=== PATIENT | male | born 1950 | race Caucasian/White ===

== ENCOUNTER 2016-12-12 17:53 | Inpatient (IN) ==
[2016-12-12] MEDS ORDERED: Vancomycin 1,000 MG in D5% in Water 250 ML IVPB ONE ×2 (18:17→23:00)
--- NOTE | 2016-12-12 18:37 | Emergency Department Note ---
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: unspecified long-term insulin use status Qualified Code(s): E11.65 - Type 2 diabetes mellitus with hyperglycemia 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 underlying condition Qualifiers: Laterality: right Non-pressure ulcer stage: limited to breakdown of skin Qualified Code(s): E08.621 - Diabetes mellitus due to underlying condition with foot ulcer Disposition: Still a Patient Referrals: Zainab Rodney MD [Primary Care Provider] - Forms: ED Satisfaction Letter Extremity Problem HPI - General Chief complaint: ED Extremity Problem,Nontraumatic Stated complaint: BLE edema and weeping Time Seen by Provider: 12/12/16 18:00 Source: patient, EMS Limitations: no limitations Nursing Notes Reviewed: Yes Vital Signs Reviewed: Yes - History of Present Illness HPI Narrative: The patient a 66-year-old male who is a non-compliant diabetic with a past medical history of A-Fib and hypertension who came via EMS and presents complaining of drainage and seepage from the wounds on his bilateral lower extremities. The patient states that his wounds and lesions have been present for approximately 2 weeks, but he noticed a lot of drainage and leakage today that caused him to almost slip on the floor as he was walking. He admits that the wound on his left wills is "sore". He denies any fever, nausea, and vomiting. He admits difficulty urinating, increased in urinary urgency, and increase in urinary frequency and has had multiple "accidents" on himself because he cannot make it to the restroom on time. He denies any hematuria. He admits that he is not compliant with his insulin. Per EMS, his glucose was 400 prior to arrival. Repeat glucose check here was 440. He admits a recent fall one week ago due to tripping on something but denies any head trauma or loss of consciousness. The patient denies any headache, vision loss, chest pain, palpitations, shortness of breath, difficulty breathing, abdominal pain, blood in his stool, blood in his urine, numbness and tingling, weaknesses, or any focal neurological deficits. Pain Scale: 5 - Related Data Home Medications Medication Instructions Recorded Confirmed Atorvastatin [Lipitor] 40 mg PO DAILY 03/20/15 03/20/15 Bupropion HCl [Wellbutrin Xl] 300 mg PO DAILY 03/20/15 03/20/15 Enalapril Maleate [Vasotec] 20 mg PO BID 03/20/15 03/20/15 Insulin Glargine,Hum.rec.anlog 50 unit SQ HS 03/20/15 03/20/15 [Lantus Solostar] Insulin LISPRO [HumaLOG] 15 unit SQ TIDWM 03/20/15 03/20/15 Metformin HCl [Fortamet] 2,000 mg PO QPM 03/20/15 03/20/15 Metoprolol XL (24 HR) Succ [Toprol 150 mg PO DAILY 03/20/15 03/20/15 Xl] Oxybutynin Chloride [Ditropan Xl] 10 mg PO DAILY 03/20/15 03/20/15 Rivaroxaban [Xarelto] 20 mg PO DAILY 03/20/15 03/20/15 Tamsulosin [Flomax] 0.4 mg PO DAILY 03/20/15 03/20/15 Allergies Allergy/AdvReac Type Severity Reaction Status Date / Time No Known Allergies Allergy Verified 12/12/16 17:56 Review of Systems: Constitutional: No fever Vision: No blurred vision ENT: No rhinorrhea Respiratory: No cough Allergic: No allergies : Admits increase in urinary urgency and frequency. Admits difficulty urinating. Denies any No blood in urine, dysuria, discharge. GI: No blood in stool. Denies abdominal pain Hematologic: No bruising Dermatologic: Admits vesicular lesions and blisters on left wills, erythema on bilateral feet, and ulcer under the right heel. Musculoskeletal: Admits bilateral leg swelling. Admits soreness in the left wills. Denies pain in bilateral feet. Neuro:Denies any numbness of the extremities. All systems ED: reviewed and negative except as stated. Review of Systems: As Per HPI Past Medical History - Past Medical History Medical history: Reports: atrial fibrillation, diabetes, hyperlipidemia, hypertension Surgical history: Reports: appendectomy Psychiatric history: Reports: no psych history - Social History Smoking Status: Never smoker Smokeless Tobacco Status: No Alcohol use: Reports: none Drug use: Reports: none Physical Exam CONSTITUTIONAL: Alert and oriented X3, well-nourished, morbidly obese, in no apparent distress HEAD: Normocephalic; atraumatic. EYES: PERRL, no scleral icterus. NOSE: The nose is normal in appearance without rhinorrhea ORAL: Tongue appears dry. Poor dentition. Posterior pharynx is pink without exudates, erythema, or any oral lesions RESP: Breath sounds are decreased bilaterally; Inspiratory and expiratory wheezes bilaterally in the upper and lower lobes. CARD: Regular rhythm, without murmurs, rub or gallop ABD: Non-distended; non-tender, soft,without rigidity, rebound or guarding SKIN: Vesicular lesions are present on the left wills. Broken lesions are also present on left wills and bilateral dorsal aspect of the feet. Right heel ulcer is present and opened but without drainage. Toenails are yellow and poor in appearance. Normal for age and race. NEUROLOGICAL: Patient is alert and oriented times three. Cranial nerves III- XII are intact. Sensory and motor functions are intact. Strength is 3/5 for flexion and extension in all 4 extremities. EXTREMITIES: Pulses are 1 plus and equal times 2 in lower extremities. peripheral edema present in bilateral lower extremities with +2 pitting edema. No calf muscle pain. - General Limitations: no limitations General appearance: alert Course Vital Signs Temperature 97.5 F L 12/12/16 17:56 Pulse Rate 114 12/12/16 17:56 Respiratory Rate 20 12/12/16 17:56 Blood Pressure 121/97 12/12/16 17:56 O2 Sat by Pulse Oximetry 93 12/12/16 17:56 Temperature 97.5 F L 12/12/16 17:56 Pulse Rate 114 12/12/16 17:56 Respiratory Rate 20 12/12/16 17:56 Blood Pressure 121/97 12/12/16 17:56 O2 Sat by Pulse Oximetry 93 12/12/16 17:56 Oxygen Delivery Oxygen Delivery Room Air Extremity Problem, Nontraumati - MDM Narrative Medical decision making narrative: Vitals are reviewed and patient is tachycardic. Glucose check was 440 at bedside. Cellulitis is apparent on lower extremities. Labs and imaging are pending to further evaluate patient. Plan is to admit patient for non compliant diabetes, bilateral lower extremities edema, diabetic ulcers, and developing cellulitis. Began patient on Vancomycin. - Lab Data Result diagrams: 12/12/16 18:30 Lab Results 12/12/16 12/12/16 12/12/16 Range/Units 17:57 17:59 18:30 WBC 7.6 (4.3-11.1) K/mcL RBC 3.90 L (4.19-5.50) M/mcL Hgb 10.0 L (12.9-16.9) g/dL Hct 33.3 L (37.5-50.1) % MCV 85.4 (83.0-100.0) fL MCH 25.6 L (28.0-33.3) pg MCHC 30.0 L (31.6-35.5) g/dL RDW 16.5 H (11.5-14.5) % Plt Count 284 (140-400) K/mcL MPV 10.2 (9.4-12.4) fL Immature Gran % 0.3 (0-4) % Seg Neutrophils % 79.4 % Lymphocytes % 9.6 % Monocytes % 8.1 % Eosinophils % 2.1 % Basophils % 0.5 % Neutrophils # 6.0 (1.6-8.9) K/mcL Lymphocytes # 0.7 (0.6-4.6) K/mcL Monocytes # 0.6 (0.0-1.3) K/mcL Eosinophils # 0.2 (0.0-0.6) K/mcL Basophils # 0.0 (0.0-0.2) K/mcL POC Glucose 440 H* 417 H* (58-89) Beta-Hydroxybutyric Acd (0.02-0.27) mmol/L 12/12/16 Range/Units 18:30 WBC (4.3-11.1) K/mcL RBC (4.19-5.50) M/mcL Hgb (12.9-16.9) g/dL Hct (37.5-50.1) % MCV (83.0-100.0) fL MCH (28.0-33.3) pg MCHC (31.6-35.5) g/dL RDW (11.5-14.5) % Plt Count (140-400) K/mcL MPV (9.4-12.4) fL Immature Gran % (0-4) % Seg Neutrophils % % Lymphocytes % % Monocytes % % Eosinophils % % Basophils % % Neutrophils # (1.6-8.9) K/mcL Lymphocytes # (0.6-4.6) K/mcL Monocytes # (0.0-1.3) K/mcL Eosinophils # (0.0-0.6) K/mcL Basophils # (0.0-0.2) K/mcL POC Glucose (58-89) Beta-Hydroxybutyric Acd 0.30 H (0.02-0.27) mmol/L - EKG Data EKG attestation: Yes I reviewed and interpreted this EKG. EKG results narrative: EKG shows atrial fibrillation with a rate of 76, URS variation of 99, QT at 389 , QTC at 420.No acute ischemic changes noted on the EKG today. No significant changes on EKG compared to the old EKG dated on 03/20/15. Attestation Statement - Attestation Attestation: Patient was seen with resident physician. I reviewed the history, physical, assessment and plan, and agree with the findings. I also personally evaluated this patient and had [id number] time with this patient. This 58-year-old male presents emergency Department with a variety of complaints. Chief among series is oozing from his leg wounds and ulcers. Also with increased swelling. Patient is apparently a diabetic and does not take any of his medications. Comes in today with his leg wrapped because he is having increased bruising and swelling and drainage from lesions on his legs. On examination vital signs are stable. Patient is morbidly obese. ENT is unremarkable. Heart regular rhythm and rate. Lungs diffuse crackling throughout. Abdomen is soft and nontender. Extremities he has 2+ edema in the lower externus bilaterally he has bilateral bruising lesions anteriorly on the legs they are red but not particularly warm. Also he has a nonhealing ulcer on the right heel posteriorly. Neurologically patient is intact. ED course fold diabetic CHF and wound workup was started. The workup was pending at the time of shift change. Patient will be started on IV antibiotics and will likely require admission for a variety of medical conditions. Patient was signed out to Dr. Orellana and Dr. Carnes will complete the disposition and workup. Patient was still a patient at the time of shift change.
[2016-12-12 18:42] LABS: Basophils % 0.5 %; Eosinophils # 0.2 K/mcL (0.0-0.6); Eosinophils % 2.1 %; Hematocrit 33.3 % (37.5-50.1); Immature Granulocytes % 0.3 % (0-4); Lymphocytes # 0.7 K/mcL (0.6-4.6); Lymphocytes % 9.6 %; Mean Corpuscular Hemoglobin 25.6 pg (28.0-33.3); Mean Corpuscular Volume 85.4 fL (83.0-100.0); Mean Platelet Volume 10.2 fL (9.4-12.4); Monocytes # 0.6 K/mcL (0.0-1.3); Monocytes % 8.1 %; Platelet Count 284 K/mcL (140-400); Red Cell Distribution Width 16.5 % (11.5-14.5); Segmented Neutrophils % 79.4 %
[2016-12-12 18:53] LABS: Beta-Hydroxybutyric Acid 0.3 mmol/L (0.02-0.27)
[2016-12-12 18:54] LABS: VBG HCO3 26 mEq/L (21-27); VBG PCO2 50 mmHg (41-51); VBG PH 7.32 pH Units (7.32-7.42); VBG PO2 56 mmHg (25-50)
[2016-12-12 18:59] LABS: Albumin 2.7 g/dL (3.5-5.0); Albumin/Globulin Ratio 0.7 (1.1-2.2); Bilirubin,Total 0.5 mg/dL (0.2-1.2); Calcium 8.3 mg/dL (8.6-10.8); Potassium 4.3 mEq/L (3.5-4.5); Total Protein 6.7 g/dL (6.0-8.3)
--- NOTE | 2016-12-12 19:07 | Emergency Department Note ---
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 Qualified Code(s): E11.65 - Type 2 diabetes mellitus with hyperglycemia 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 underlying condition Qualifiers: Laterality: right Non-pressure ulcer stage: limited to breakdown of skin Qualified Code(s): E08.621 - Diabetes mellitus due to underlying condition with foot ulcer Disposition: Still a Patient Condition: Fair Referrals: Zainab Rodney MD [Partnered Physician] - Forms: ED Satisfaction Letter Time of Disposition: 20:46 General Adult HPI - General Chief complaint: ED Extremity Problem,Nontraumatic Stated complaint: BLE edema and weeping Time Seen by Provider: 12/12/16 18:00 Source: patient, EMS Mode of arrival: ambulatory Limitations: no limitations Nursing Notes Reviewed: Yes Vital Signs Reviewed: Yes - History of Present Illness Pain Scale: 5 - Related Data Home Medications Medication Instructions Recorded Confirmed Atorvastatin [Lipitor] 40 mg PO DAILY 03/20/15 03/20/15 Bupropion HCl [Wellbutrin Xl] 300 mg PO DAILY 03/20/15 03/20/15 Enalapril Maleate [Vasotec] 20 mg PO BID 03/20/15 03/20/15 Insulin Glargine,Hum.rec.anlog 50 unit SQ HS 03/20/15 03/20/15 [Lantus Solostar] Insulin LISPRO [HumaLOG] 15 unit SQ TIDWM 03/20/15 03/20/15 Metformin HCl [Fortamet] 2,000 mg PO QPM 03/20/15 03/20/15 Metoprolol XL (24 HR) Succ [Toprol 150 mg PO DAILY 03/20/15 03/20/15 Xl] Oxybutynin Chloride [Ditropan Xl] 10 mg PO DAILY 03/20/15 03/20/15 Rivaroxaban [Xarelto] 20 mg PO DAILY 03/20/15 03/20/15 Tamsulosin [Flomax] 0.4 mg PO DAILY 03/20/15 03/20/15 Allergies Allergy/AdvReac Type Severity Reaction Status Date / Time No Known Allergies Allergy Verified 12/12/16 17:56 Past Medical History - Past Medical History Medical history: Reports: atrial fibrillation, diabetes, hyperlipidemia, hypertension Surgical history: Reports: appendectomy Psychiatric history: Reports: no psych history - Social History Smoking Status: Never smoker Smokeless Tobacco Status: No Alcohol use: Reports: none Drug use: Reports: none Physical Exam - General Limitations: no limitations General appearance: alert - Head Head exam: atraumatic, normocephalic, normal inspection - Eye Eye exam: Present: normal appearance, PERRL, EOMI - ENT ENT exam: normal exam, normal oropharynx, mucous membranes moist - Neck Neck exam: Present: normal inspection, full ROM, trachea midline - Chest Chest inspection: Present: normal inspection, symmetric chest wall rise - Respiratory Respiratory exam: Present: wheezes (mild wheeze and decreased aeration bilateral LL) - Cardiovascular Cardiovascular exam: Present: normal rhythm, tachycardia, normal heart sounds - Abdominal Exam Abdominal exam: Present: soft, other (anasarca present). Absent: tenderness, distention, guarding, rebound - Extremities Exam Extremities exam: Present: full ROM, pedal edema, other (Also the right heel with active pus drainage, cellulitis surrounding; chronic deep venous stasis dermatitis of bilateral lower extremity). Absent: tenderness - Neurological Exam Neurological exam: Present: alert, oriented X3. Absent: motor sensory deficit - Psychiatric Psychiatric exam: Present: normal affect, normal mood - Skin Skin exam: Present: warm, dry, other (see above extremity section) Course Course Narrative: This patient was a sign out from the previous team, Dr. Galicia, Dr. Ribeiro. Please see their notes for any additional details. In summary, patient is an obese male, poorly compliant with medications, has diabetes, CHF, chronic lower extremity edema, nonhealing ulcer of the right foot. He had a fairly extensive workup done by previous team. They have started vancomycin for right lower extremity ulcer. He also has evidence of a K I, hyperglycemia. He does not have a gap. We will give the patient 10 units of IV insulin for hyperglycemia in the 400s. We will hold off on fluids for now due to CHF exacerbation, shortness of breath, pedal edema. Trop negative. EKG shows A fib with no acute ST changes, occasional PVCS. patient has been accepted by Dr. Hicks for admission Vital Signs Temperature 97.5 F L 12/12/16 17:56 Pulse Rate 114 12/12/16 17:56 Respiratory Rate 20 12/12/16 17:56 Blood Pressure 121/97 12/12/16 17:56 O2 Sat by Pulse Oximetry 93 12/12/16 17:56 Temperature 97.5 F L 12/12/16 17:56 Pulse Rate 75 12/12/16 19:53 Respiratory Rate 20 12/12/16 19:53 Blood Pressure 146/80 12/12/16 19:53 O2 Sat by Pulse Oximetry 94 12/12/16 19:53 Oxygen Delivery Oxygen Delivery Room Air Medical Decision Making - MDM Narrative Medical decision making narrative: This patient was a sign out from the previous team, Dr. Galicia, Dr. Ribeiro. Please see their notes for any additional details. In summary, patient is an obese male, poorly compliant with medications, has diabetes, CHF, chronic lower extremity edema, nonhealing ulcer of the right foot. He had a fairly extensive workup done by previous team. They have started vancomycin for right lower extremity ulcer. He also has evidence of a K I, hyperglycemia. He does not have a gap. We will give the patient 10 units of IV insulin for hyperglycemia in the 400s. We will hold off on fluids for now due to CHF exacerbation, shortness of breath, pedal edema. Trop negative. EKG shows A fib with no acute ST changes, occasional PVCS. patient has been accepted by Dr. Hicks for admission - Medical Records Medical records reviewed: Yes I reviewed the patient's medical records. - Lab Data Lab results reviewed: Yes I reviewed the patient's lab results. Result diagrams: 12/12/16 18:30 12/12/16 18:30 Lab Results 12/12/16 12/12/16 12/12/16 Range/Units 17:57 17:59 18:30 WBC 7.6 (4.3-11.1) K/mcL RBC 3.90 L (4.19-5.50) M/mcL Hgb 10.0 L (12.9-16.9) g/dL Hct 33.3 L (37.5-50.1) % MCV 85.4 (83.0-100.0) fL MCH 25.6 L (28.0-33.3) pg MCHC 30.0 L (31.6-35.5) g/dL RDW 16.5 H (11.5-14.5) % Plt Count 284 (140-400) K/mcL MPV 10.2 (9.4-12.4) fL Immature Gran % 0.3 (0-4) % Seg Neutrophils % 79.4 % Lymphocytes % 9.6 % Monocytes % 8.1 % Eosinophils % 2.1 % Basophils % 0.5 % Neutrophils # 6.0 (1.6-8.9) K/mcL Lymphocytes # 0.7 (0.6-4.6) K/mcL Monocytes # 0.6 (0.0-1.3) K/mcL Eosinophils # 0.2 (0.0-0.6) K/mcL Basophils # 0.0 (0.0-0.2) K/mcL VBG pH (7.32-7.42) pH Units VBG pCO2 (41-51) mmHg VBG pO2 (25-50) mmHg VBG HCO3 (21-27) mEq/L Sodium (136-145) mEq/L Potassium (3.5-4.5) mEq/L Chloride (98-109) mEq/L Carbon Dioxide (19-29) mEq/L BUN (8-26) mg/dL Creatinine (0.72-1.25) mg/dL Est GFR ( Amer) (> 60) Est GFR (Non-Af Amer) (> 60) BUN/Creatinine Ratio (6-26) Glucose (70-99) mg/dL POC Glucose 440 H* 417 H* (58-89) Calculated Osmolality (280-300) Lactic Acid (0.5-2.2) mmol/L Calcium (8.6-10.8) mg/dL Total Bilirubin (0.2-1.2) mg/dL AST (5-34) Units/L ALT (0-55) Units/L Alkaline Phosphatase (38-126) Units/L Troponin I (0-0.03) ng/mL B-Natriuretic Peptide (0-100) pg/mL Serum Total Protein (6.0-8.3) g/dL Albumin (3.5-5.0) g/dL Globulin (2.4-3.5) g/dL Albumin/Globulin Ratio (1.1-2.2) Beta-Hydroxybutyric Acd (0.02-0.27) mmol/L Urine Color (Yellow) Urine Clarity (Clear) Urine pH (5.0-8.0) pH Units Ur Specific Otis (1.010-1.025) Urine Protein (Neg-Trace) mg/dL Urine Glucose (UA) (Normal) mg/dL Urine Ketones (Negative) mg/dL Urine Blood (Negative) Urine Nitrite (Negative) Urine Bilirubin (Negative) Urine Urobilinogen (Normal) mg/dL Ur Leukocyte Esterase (Negative) Urine Microscopic RBC (0-3) per hpf Urine Microscopic WBC (0-3) per hpf Ur Squamous Epith Cells (None-Few) per lpf Urine Bacteria (None-Few) per hpf Hyaline Casts (None-Few) per lpf Ur Culture Indicated? (NO) 12/12/16 12/12/16 12/12/16 Range/Units 18:30 18:30 18:30 WBC (4.3-11.1) K/mcL RBC (4.19-5.50) M/mcL Hgb (12.9-16.9) g/dL Hct (37.5-50.1) % MCV (83.0-100.0) fL MCH (28.0-33.3) pg MCHC (31.6-35.5) g/dL RDW (11.5-14.5) % Plt Count (140-400) K/mcL MPV (9.4-12.4) fL Immature Gran % (0-4) % Seg Neutrophils % % Lymphocytes % % Monocytes % % Eosinophils % % Basophils % % Neutrophils # (1.6-8.9) K/mcL Lymphocytes # (0.6-4.6) K/mcL Monocytes # (0.0-1.3) K/mcL Eosinophils # (0.0-0.6) K/mcL Basophils # (0.0-0.2) K/mcL VBG pH (7.32-7.42) pH Units VBG pCO2 (41-51) mmHg VBG pO2 (25-50) mmHg VBG HCO3 (21-27) mEq/L Sodium 140 (136-145) mEq/L Potassium 4.3 (3.5-4.5) mEq/L Chloride 106 (98-109) mEq/L Carbon Dioxide 24 (19-29) mEq/L BUN 30 H (8-26) mg/dL Creatinine 1.85 H (0.72-1.25) mg/dL Est GFR ( Amer) 44 L (> 60) Est GFR (Non-Af Amer) 37 L (> 60) BUN/Creatinine Ratio 16 (6-26) Glucose 419 H (70-99) mg/dL POC Glucose (58-89) Calculated Osmolality 314 H (280-300) Lactic Acid 2.3 H (0.5-2.2) mmol/L Calcium 8.3 L (8.6-10.8) mg/dL Total Bilirubin 0.5 (0.2-1.2) mg/dL AST 9 (5-34) Units/L ALT 9 (0-55) Units/L Alkaline Phosphatase 114 (38-126) Units/L Troponin I 0.00 (0-0.03) ng/mL B-Natriuretic Peptide (0-100) pg/mL Serum Total Protein 6.7 (6.0-8.3) g/dL Albumin 2.7 L (3.5-5.0) g/dL Globulin 4.0 H (2.4-3.5) g/dL Albumin/Globulin Ratio 0.7 L (1.1-2.2) Beta-Hydroxybutyric Acd 0.30 H (0.02-0.27) mmol/L Urine Color (Yellow) Urine Clarity (Clear) Urine pH (5.0-8.0) pH Units Ur Specific Otis (1.010-1.025) Urine Protein (Neg-Trace) mg/dL Urine Glucose (UA) (Normal) mg/dL Urine Ketones (Negative) mg/dL Urine Blood (Negative) Urine Nitrite (Negative) Urine Bilirubin (Negative) Urine Urobilinogen (Normal) mg/dL Ur Leukocyte Esterase (Negative) Urine Microscopic RBC (0-3) per hpf Urine Microscopic WBC (0-3) per hpf Ur Squamous Epith Cells (None-Few) per lpf Urine Bacteria (None-Few) per hpf Hyaline Casts (None-Few) per lpf Ur Culture Indicated? (NO) 12/12/16 12/12/16 12/12/16 Range/Units 18:30 18:49 19:50 WBC (4.3-11.1) K/mcL RBC (4.19-5.50) M/mcL Hgb (12.9-16.9) g/dL Hct (37.5-50.1) % MCV (83.0-100.0) fL MCH (28.0-33.3) pg MCHC (31.6-35.5) g/dL RDW (11.5-14.5) % Plt Count (140-400) K/mcL MPV (9.4-12.4) fL Immature Gran % (0-4) % Seg Neutrophils % % Lymphocytes % % Monocytes % % Eosinophils % % Basophils % % Neutrophils # (1.6-8.9) K/mcL Lymphocytes # (0.6-4.6) K/mcL Monocytes # (0.0-1.3) K/mcL Eosinophils # (0.0-0.6) K/mcL Basophils # (0.0-0.2) K/mcL VBG pH 7.32 (7.32-7.42) pH Units VBG pCO2 50 (41-51) mmHg VBG pO2 56 H (25-50) mmHg VBG HCO3 26 (21-27) mEq/L Sodium (136-145) mEq/L Potassium (3.5-4.5) mEq/L Chloride (98-109) mEq/L Carbon Dioxide (19-29) mEq/L BUN (8-26) mg/dL Creatinine (0.72-1.25) mg/dL Est GFR ( Amer) (> 60) Est GFR (Non-Af Amer) (> 60) BUN/Creatinine Ratio (6-26) Glucose (70-99) mg/dL POC Glucose (58-89) Calculated Osmolality (280-300) Lactic Acid (0.5-2.2) mmol/L Calcium (8.6-10.8) mg/dL Total Bilirubin (0.2-1.2) mg/dL AST (5-34) Units/L ALT (0-55) Units/L Alkaline Phosphatase (38-126) Units/L Troponin I (0-0.03) ng/mL B-Natriuretic Peptide 404 H (0-100) pg/mL Serum Total Protein (6.0-8.3) g/dL Albumin (3.5-5.0) g/dL Globulin (2.4-3.5) g/dL Albumin/Globulin Ratio (1.1-2.2) Beta-Hydroxybutyric Acd (0.02-0.27) mmol/L Urine Color Yellow (Yellow) Urine Clarity Clear (Clear) Urine pH 5.0 (5.0-8.0) pH Units Ur Specific Otis 1.029 H (1.010-1.025) Urine Protein 100 H (Neg-Trace) mg/dL Urine Glucose (UA) >=1000 H (Normal) mg/dL Urine Ketones Negative (Negative) mg/dL Urine Blood Trace H (Negative) Urine Nitrite Negative (Negative) Urine Bilirubin Negative (Negative) Urine Urobilinogen Normal (Normal) mg/dL Ur Leukocyte Esterase Negative (Negative) Urine Microscopic RBC 3-5 H (0-3) per hpf Urine Microscopic WBC 5-15 H (0-3) per hpf Ur Squamous Epith Cells Many H (None-Few) per lpf Urine Bacteria None Seen (None-Few) per hpf Hyaline Casts Few (None-Few) per lpf Ur Culture Indicated? NO (NO) - Radiology Data Radiology results reviewed: Yes I reviewed the patient's radiology results. Chest X-Ray 12/12/16 18:06 IMPRESSION: Slightly low lung volumes without acute abnormality. D/ / Eloy Che MD / Eloy Che MD Interpreting Provider: Eloy Che MD - EKG Data EKG #1 EKG attestation: Yes I reviewed and interpreted this EKG. EKG results narrative: 12/12/2016 18:22. A. fib with occasional PVC. Rate 76. QRS 99. QTc 420. Normal axis. S.B.A.R. - S.B.A.R. Situation: Demographics, MOA Background: Presenting Complaint, Relevant PMH, Meds, & Allergies Assessment: Vital Signs, Course and respsone to treatment, Exam Concerns, Patient/Family Expectation, Pertinant Lab Results Recommendation: Barrier(s) to disposition, Recommendation based on pending studies, treatments, or consults S.B.A.RGlenn Report Given to: Dr. Kurt Crawford Repor Time: 20:49
[2016-12-12 20:01] LABS: Bilirubin,Urine Negative (Negative); Blood,Urine Trace (Negative); Clarity,Urine Clear (Clear); Color,Urine Yellow (Yellow); Glucose,Urine (UA) >=1000 mg/dL (Normal); Ketones,Urine Negative (Negative); Leukocyte Esterase,Urine Negative (Negative); Nitrite,Urine Negative (Negative); Protein,Urine 100 mg/dL (Neg-Trace); Specific Gravity,Urine 1.029 (1.010-1.025); Urobilinogen,Urine Normal (Normal)
[2016-12-12 20:04] LABS: Bacteria,Urine None Seen per hpf (None-Few); Hyaline Casts,Urine Few per lpf (None-Few); Squamous Epithelial Cell,Urine Many per lpf (None-Few)
--- NOTE | 2016-12-12 20:06 | Emergency Department Note ---
START Narrative - START START: I examined this patient and my medical decision-making was reviewed with the emergency medicine resident. I agree with the documented findings, disposition and treatment plan as described except to the extent set forth below. Patient seen with emergency medicine resident Dr. Bereket CHONG, Please see a copy of his note for details of the H&P, ED evaluation, management and disposition. I have independently evaluated the patient and confirmed appropriate portions of the history and physical exam. Briefly: Chronically noncompliant 58-year-old insulin-dependent diabetic presents with several days of bilateral family swelling erythema and a developing ulcer on his right heel. He has been dropped from 2 different primary care providers due to noncompliance. Patient is agreeable to admission. Labs are essentially within normal limits aside from a glucose of 400 and positive beta hydroxybutyrate. Patient got IV vancomycin for developing cellulitis. Admission anticipated disposition pending
[2016-12-12] MEDS ORDERED: Furosemide 40 MG/4 ML VIAL IVP ONE (20:40)
--- NOTE | 2016-12-12 21:53 | Internal Med History&Physical ---
Date of Encounter: 12/13/16 Time of Encounter: 21:53 Assessment and Plan (1) Sepsis Current visit: Yes Status: Acute 2 SIRS criteria with tachycardia HR 114 and tachypnea RR 23, source likely cellulitis vs UTI Lactic acid 2.3 --> 1.3 Blood, urine, and wound cultures pending Continue Vanc and Zosyn De-escalate antibiotics once cultures resulted We will hold off on fluids for now due to CHF exacerbation, shortness of breath , pedal edema. Qualifiers: Sepsis type: sepsis due to unspecified organism Qualified Code(s): A41.9 - Sepsis, unspecified organism (2) Cellulitis of both feet Current visit: Yes Status: Acute Moist weeping bilateral 4+ pedal edema, chronic deep venous stasis dermatitis of bilateral lower extremities Wound cultures pending Continue Vanc and Zosyn Wound care consulted (3) Fungal infection of the groin Current visit: Yes Status: Acute Lower pannus/ groin Continue Diflucan, Nystatin (4) UTI (urinary tract infection) Current visit: Yes Status: Acute Urine culture pending Brennan in place Continue Vanc and Zosyn Qualifiers: Urinary tract infection type: acute cystitis Hematuria presence: with hematuria Qualified Code(s): N30.01 - Acute cystitis with hematuria (5) 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 underlying condition Current visit: Yes Status: Acute Right heel ulcer with purulent drainage Wound care consulted Qualifiers: Laterality: right Non-pressure ulcer stage: limited to breakdown of skin Qualified Code(s): E08.621 - Diabetes mellitus due to underlying condition with foot ulcer; L97.411 - Non-pressure chronic ulcer of right heel and midfoot limited to breakdown of skin; L97.411 - Non-pressure chronic ulcer of right heel and midfoot limited to breakdown of skin; L97.411 - Non-pressure chronic ulcer of right heel and midfoot limited to breakdown of skin; L97.411 - Non- pressure chronic ulcer of right heel and midfoot limited to breakdown of skin (6) Hyperglycemia due to type 2 diabetes mellitus Current visit: Yes Status: Acute HGB a1c 11.2 Continue insulin and SSI Qualifiers: Diabetes mellitus termite exterminator insulin use: without termite exterminator use Qualified Code(s): E11.65 - Type 2 diabetes mellitus with hyperglycemia (7) CHF (congestive heart failure) Current visit: Yes Status: Acute Acute CHF CXR revelas slightly low lung volumes without acute abnormality Echo pending Continue home Metoprolol and Lisinopril Start low dose Spironolactone Fluid restriction Qualifiers: Congestive heart failure type: unspecified congestive heart failure type Congestive heart failure chronicity: acute Qualified Code(s): I50.9 - Heart failure, unspecified (8) SHANE (acute kidney injury) Current visit: Yes Status: Acute We will hold off on fluids for now due to CHF exacerbation, shortness of breath , pedal edema. Avoid nephrotoxins Continue to monitor (9) Atrial fibrillation Current visit: No Status: Chronic Continue Xarelto Qualifiers: Atrial fibrillation type: chronic Qualified Code(s): I48.2 - Chronic atrial fibrillation (10) HTN (hypertension) Current visit: No Status: Chronic Continue home meds Qualifiers: Hypertension type: essential hypertension Qualified Code(s): I10 - Essential (primary) hypertension (11) Morbid obesity Current visit: No Status: Acute Discuss diet and lifestyle modification (12) DVT prophylaxis Current visit: No Status: Acute Continue home Xarelto Internal Medicine - H&P: HPI Chief complaint: Leg swelling Admitted From: Home Plans for Post Hospital Care: Home History of present illness: Mr. Ramirez is a 66 year old male with a PMH of poorly controlled DM, A-Fib on Xarelto, hypertension, and debility that presented complaining of wound on his left lower extremity for 2 weeks and swelling and drainage from both legs today. He reports a recent fall one week ago due to tripping and his left wills is "sore". He admits chills, SOB, difficulty urinating, urgency, and urinary incontinence. He denies any fever, CP, abdominal pain, nausea, and vomiting, or hematuria. He reports chronic infection in groin and reports not using antifungal cream because " I just don't want to waste it". Of note, he has been dropped from 2 different primary care providers due to noncompliance. In the ED, 10 units of IV insulin given for hyperglycemia in the 400s. He met 2 SIRS criteria with tachycardia HR 114 and tachypnea RR 23, source likely cellulitis vs UTI. Lactic acid 2.3 --> 1.3 and strted on Vanc an Zosyn. No IVFs were given due to CHF exacerbation, shortness of breath, pedal edema. Past Med Surg Social Fam HX - Past Medical History Medical history: atrial fibrillation, diabetes, hyperlipidemia, hypertension Psychiatric history: no psych history - Past Surgical History Surgical History: appendectomy - Social History Smoking Status: Never smoker Smokeless Tobacco Status: No Alcohol use: none Drug use: none - Family History Mother Living Status: Age at : 75 Cause of : Diabetic complications Father Living Status: Age at : 67 Cause of : Pancreatic Cancer Hx Family Cancer: Yes Internal Medicine - H&P: Meds Atorvastatin [Lipitor] 40 mg PO DAILY 03/20/15 [History] Bupropion HCl [Wellbutrin Xl] 300 mg PO DAILY 03/20/15 [History] Enalapril Maleate [Vasotec] 20 mg PO BID 03/20/15 [History] Insulin Glargine,Hum.rec.anlog [Lantus Solostar] 50 unit SQ HS 03/20/15 [History ] Insulin LISPRO [HumaLOG] 15 unit SQ TIDWM 03/20/15 [History] Metformin HCl [Fortamet] 1,000 mg PO BID 03/20/15 [History] Metoprolol XL (24 HR) Succ [Toprol Xl] 150 mg PO DAILY 03/20/15 [History] Oxybutynin Chloride [Ditropan Xl] 10 mg PO DAILY 03/20/15 [History] Rivaroxaban [Xarelto] 20 mg PO DAILY 03/20/15 [History] Tamsulosin [Flomax] 0.4 mg PO DAILY 03/20/15 [History] amLODIPine 10 mg PO DAILY 12/12/16 [History] 3 Allergy/AdvReac Type Severity Reaction Status Date / Time No Known Allergies Allergy Verified 12/12/16 17:56 All Systems PM: A 10-system review of systems was performed and is negative for pertinent findings except as documented above in the HPI. - Constitutional Constitutional: chills, fatigue, lethargy, weakness, weight gain, no fever(s), no weight loss - EENT Eyes: no change in vision Nose, mouth and throat: no nasal congestion, no sinus pressure - Cardiovascular Cardiovascular ROS IM: irregular heart rhythm, orthopnea, paroxysmal nocturnal dyspnea, no chest pain, no palpitations, no syncope - Respiratory Respiratory: cough, dyspnea, no chest congestion, no excessive phlegm production , no change in phlegm color - Gastrointestinal Gastrointestinal: abdominal pain, no constipation, no diarrhea, no fecal incontinence, no nausea, no vomiting - Genitourinary Genitourinary ROS male: difficulty urinating, dysuria, urinary hesitancy, urinary incontinence, urinary urgency - Musculoskeletal Musculoskeletal ROS IM: limited range of motion, no arthralgias - Integumentary Integumentary IM: erythema, non-healing lesions, pruritus, rash, skin ulcer, sores - Neurological Neurological ROS: abnormal gait, frequent falls, numbness, paresthesias, weakness, no confusion, no tingling - Psychiatric Psychiatric: no anxiety, no depression - Endocrine Endocrine IM: no polydipsia, no polyphagia, no polyuria - Hematologic/Lymphatic Hematologic/Lymphatic: no easy bleeding, no easy bruising - Constitutional Vitals: Temp Pulse Resp BP Pulse Ox 97.5 F L 75 20 123/68 94 12/12/16 17:56 12/12/16 19:53 12/12/16 21:18 12/12/16 21:18 12/12/16 19:53 General appearance: Present: cooperative, mild distress, A&O X 3, morbidly obese , answers questions appropriately - Head Head exam: Present: atraumatic, normal inspection, normocephalic - Eye Eye exam: Present: EOMI, PERRL - ENT ENT exam: Present: mucous membranes moist, normal oropharynx - Neck Neck exam general surgery: Present: normal inspection, supple. Absent: tenderness - Respiratory Respiratory exam: Present: decreased breath sounds. Absent: accessory muscle use, respiratory distress, wheezes - Cardiovascular Cardiovascular exam: Present: RRR, +S1, +S2 - GI/Abdominal GI/Abdominal exam: Present: distended (pannus with erythema and skin thickening , foul odor). Absent: tenderness - External exam: Present: erythema Additional comments: brennan, erythema, moist skin in groin, foul odor - Extremities Exam Extremities exam: Present: pedal edema, tenderness, warm. Absent: normal inspection Additional comments: right heel ulcer with purulent drainage, moist weeping bilateral 4+ pedal edema , chronic deep venous stasis dermatitis of bilateral lower extremities - Back Exam Back exam: Present: normal inspection. Absent: paraspinal tenderness, tenderness - Neurological Exam Neurological exam: Present: alert, oriented X3. Absent: altered, facial droop, speech deficit - Psychiatric Psychiatric exam: Present: anxious, normal affect - Skin Skin exam: Present: erythema, rash, warm Additional comments: right heel ulcer with purulent drainage, moist weeping bilateral 4+ pedal edema , chronic deep venous stasis dermatitis of bilateral lower extremities Internal Med - H&P Results - Labs CBC & Chem 7: 12/13/16 00:15 12/13/16 00:15 - EKG Data -: EKG Interpreted by Myself Rate: tachycardia ( A. fib with occasional PVC. Rate 76. QRS 99. QTc 420. Normal axis. No acute ST changes, occasional PVCs) - Impressions Impressions Chest X-Ray 12/12/16 18:06 IMPRESSION: Slightly low lung volumes without acute abnormality. D/ / Eloy Che MD / Eloy Che MD Interpreting Provider: Eloy Che MD
[2016-12-12] MEDS ORDERED: Insulin LISPRO 300 UNITS/3 ML VIAL SQ ONE ×2 (22:38→22:41)
[2016-12-12] MEDS ORDERED: Naloxone 0.4 MG/ML INJ IVP PRN (22:40)
[2016-12-12] MEDS ORDERED: Ondansetron 4 MG/2 ML VIAL IVP PRN (22:40)
[2016-12-12] MEDS ORDERED: Acetaminophen 325 MG TABLET PO PRN (22:40)
[2016-12-12] MEDS ORDERED: Vancomycin 2,000 MG in D5% in Water 500 ML IVPB SCH (23:00)
[2016-12-12] MEDS ORDERED: Vancomycin (wt based) 1,000 MG VIAL IVPB SCH (23:00)
[2016-12-12 23:18] LABS: INR 1.2
[2016-12-12 23:21] LABS: Activated Partial Thrombo Time 32.6 Seconds (26.0-36.0)
[2016-12-12] MEDS ORDERED: Fluconazole 200 MG/100 ML 200 MG/100 ML BAG IVPB ONE (23:39)
[2016-12-12] MEDS ORDERED: *HR* Dextrose 50 % in Water (Syg) 50 ML SYRINGE IVP PRN (23:41)
[2016-12-12] MEDS ORDERED: D5% in Water 1,000 ML IVC PRN (23:41)
[2016-12-12] MEDS ORDERED: Dextrose Gel 15 GM PO PRN ×2 (23:41)
[2016-12-12] MEDS ORDERED: Insulin DETEMIR 100 UNIT/ML X5UNITS SQ SCH (23:45)
[2016-12-13] MEDS: Piperacillin/Tazobactam 3.375 GM in D5% in Water (Mini-Bag+) 100 ML IVPB SCH ×3 (00:02→15:48)
[2016-12-13] MEDS: Insulin LISPRO 300 UNITS/3 ML VIAL SQ SCH ×6 (00:07→20:43)
[2016-12-13] MEDS: Nystatin Cream 15 GM TUBE TP SCH ×2 (00:10→11:01)
[2016-12-13 00:51] LABS: Basophils # 0.1 K/mcL (0.0-0.2); Basophils % 0.7 %; Eosinophils # 0.1 K/mcL (0.0-0.6); Eosinophils % 1.9 %; Hematocrit 31.8 % (37.5-50.1); Hemoglobin 9.4 g/dL (12.9-16.9); Immature Granulocytes % 0.3 % (0-4); Lymphocytes # 0.8 K/mcL (0.6-4.6); Lymphocytes % 10.9 %; Mean Corpuscular HGB Conc 29.6 g/dL (31.6-35.5); Mean Corpuscular Hemoglobin 25.3 pg (28.0-33.3); Mean Corpuscular Volume 85.5 fL (83.0-100.0); Mean Platelet Volume 10.3 fL (9.4-12.4); Monocytes # 0.7 K/mcL (0.0-1.3); Neutrophils # 5.7 K/mcL (1.6-8.9); Platelet Count 259 K/mcL (140-400); Red Blood Count 3.72 M/mcL (4.19-5.50); Red Cell Distribution Width 16.5 % (11.5-14.5); Segmented Neutrophils % 77.2 %
[2016-12-13 00:59] LABS: Hemoglobin A1C 11.2 %
[2016-12-13 01:05] LABS: Albumin 2.6 g/dL (3.5-5.0); Albumin/Globulin Ratio 0.7 (1.1-2.2); Bilirubin,Total 0.4 mg/dL (0.2-1.2); Calcium 8.1 mg/dL (8.6-10.8); Globulin 3.9 g/dL (2.4-3.5); Potassium 3.9 mEq/L (3.5-4.5); Total Protein 6.5 g/dL (6.0-8.3)
[2016-12-13] MEDS ORDERED: Famotidine 20 MG/2 ML VIAL IVP SCH (06:00)
[2016-12-13] MEDS ORDERED: Lisinopril 20 MG TABLET PO SCH (09:00)
--- NOTE | 2016-12-13 09:17 | Internal Med Progress Note ---
Date of Encounter: 12/13/16 Time of Encounter: 09:14 - Assessment and plan (1) Severe sepsis Current Visit: Yes Status: Acute Assessment and plan: Patient presented with tachycardia, tachypnea, lactic acidosis with bilateral lower extremity cellulitis and UTI. Follow-up cultures and continue IV antibiotics as below. Monitor vital signs closely. Lactic acidosis currently improved. (2) Atrial fibrillation Current Visit: Yes Status: Chronic Assessment and plan: Currently rate controlled. Continue beta wade. Noted to be on long-term anticoagulation with Xarelto. Qualifiers: Atrial fibrillation type: chronic Qualified Code(s): I48.2 - Chronic atrial fibrillation (3) Poorly controlled diabetes mellitus Current Visit: Yes Status: Chronic Assessment and plan: For outpatient follow-up with medical noncompliance. Hemoglobin A1c noted to be 11.2%. Discussed about the effects of hypoglycemia on wound healing and ongoing nephropathy. Continue Accu-Chek blood glucose monitoring, increase basal insulin, continue sliding scale insulin. Diabetic diet. (4) HTN (hypertension) Current Visit: Yes Status: Chronic Qualifiers: Hypertension type: essential hypertension Qualified Code(s): I10 - Essential (primary) hypertension (5) Morbid obesity Current Visit: Yes Status: Chronic (6) Cellulitis of both feet Current Visit: Yes Status: Acute Assessment and plan: Difficulty evaluate due to chronic long-standing stasis dermatitis, edema and induration at baseline. Continue IV vancomycin and Zosyn, follow up or get blood cultures. Lower extremity elevation. Continue IV Lasix. (7) SHANE (acute kidney injury) Current Visit: Yes Status: Acute Assessment and plan: Patient likely has underlying chronic kidney disease due to diabetic nephropathy , poor outpatient follow-up. Renal artery ultrasound from 2016 showed evidence of greater than 60% stenosis on the right renal artery. Baseline serum creatinine from February 2015 was noted to be 1.1, creatinine is 2 today. He does need a small dose of Lasix due to significant peripheral edema at this time. Will consult nephrology for further evaluation. Dose antibiotics according to current GFR. Avoid new nephrotoxic agents. Monitor urine output closely. (8) CHF (congestive heart failure) Current Visit: Yes Status: Acute Assessment and plan: Patient does have long-standing peripheral edema, however not hypoxic or short of breath at this time. Continue IV Lasix and beta wade. Continue telemetry monitoring. Check 2-D echocardiogram. Fluid restriction, strict input/output monitoring. Qualifiers: Congestive heart failure type: unspecified congestive heart failure type Congestive heart failure chronicity: acute Qualified Code(s): I50.9 - Heart failure, unspecified (9) Fungal infection of the groin Current Visit: Yes Status: Acute Assessment and plan: Continue topical antifungal along with IV Diflucan. Supportive care. (10) UTI (urinary tract infection) Current Visit: Yes Status: Acute Assessment and plan: Urinalysis suggestive of infection. Continue IV antibiotics and follow up urine cultures. Qualifiers: Urinary tract infection type: acute cystitis Hematuria presence: with hematuria Qualified Code(s): N30.01 - Acute cystitis with hematuria (11) Anemia Current Visit: Yes Status: Chronic Assessment and plan: Hemoglobin noted to be around 13 in February 2015, currently 9.4. Check stool occult blood. Check iron profile, serum vitamin B12 and folic acid levels. Qualifiers: Anemia type: due to chronic kidney disease Chronic kidney disease stage: stage 3 (moderate) Qualified Code(s): N18.3 - Chronic kidney disease, stage 3 (moderate); D63.1 - Anemia in chronic kidney disease; D63.1 - Anemia in chronic kidney disease (12) Diabetic foot ulcer Current Visit: Yes Status: Chronic Assessment and plan: Noted to have chronic right heel ulcer. We will consult podiatry. Check right foot x-ray. Qualifiers: Diabetic foot ulcer location: heel Diabetes mellitus type: type 2 Non- pressure ulcer stage: with other severity Qualified Code(s): E11.621 - Type 2 diabetes mellitus with foot ulcer; L97.408 - Non-pressure chronic ulcer of unspecified heel and midfoot with other specified severity; L97.408 - Non- pressure chronic ulcer of unspecified heel and midfoot with other specified severity - Subjective Interval history: Denies fever, chills, chest pain, shortness of breath. Poor functional status, mostly wheelchair bound, ambulates minimally with walker; no medical followup as he just did not feel like keeping his appointments. Reports chronic skin thickening and fungal dermatitis in lower abdominal folds and groin; also has chronic leg swelling in both legs, now with weeping ulcers; unsure how he got right heel ulcer/wound. - Constitutional Vitals: Temp Pulse Resp BP Pulse Ox 98.5 F 73 17 130/76 93 12/13/16 06:43 12/13/16 06:43 12/13/16 06:43 12/13/16 06:43 12/13/16 06:43 General appearance: Present: cooperative, A&O X 3, morbidly obese, answers questions appropriately - Respiratory Respiratory exam: Present: CTAB (coarse breath sounds B/L). Absent: accessory muscle use, rales, rhonchi, wheezes - Cardiovascular Cardiovascular exam: Present: RRR, +S1, +S2. Absent: diastolic murmur, gallop, rubs, systolic murmur - GI/Abdominal GI/Abdominal exam: Present: normal bowel sounds, soft, no peritoneal signs. Absent: distended, tenderness Additional comments: chronic panniculitis with pe[place] appearance of lower abdomen erythematous dermatitis in lower abdomen and B/L groin areas - Extremities Exam Extremities exam: Present: full ROM, pedal edema, warm, radial pulses palpable and symmetrical. Absent: calf tenderness, cyanotic Additional comments: chronic stasis dermatitis B/L legs, with 4+ pedal edema, induration, multiple blisters/peau d orange appearance Right heel ulcer, stage 2, nontender, dry - Neurological Exam Neurological exam: Present: CN II-XII intact, oriented X3, no focal deficits. Absent: pronater drift, facial droop, speech deficit Internal Medicine: Result - Labs CBC & Chem 7: 12/13/16 00:15 12/13/16 00:15 Labs: Short CBC 12/13/16 Range/Units 00:15 WBC 7.4 (4.3-11.1) K/mcL Hgb 9.4 L (12.9-16.9) g/dL Hct 31.8 L (37.5-50.1) % Plt Count 259 (140-400) K/mcL Neutrophils # 5.7 (1.6-8.9) K/mcL BMP 12/13/16 00:15 Sodium 139 Potassium 3.9 Chloride 106 Carbon Dioxide 23 BUN 33 H Creatinine 2.05 H Glucose 420 H Calcium 8.1 L Liver Function 12/13/16 Range/Units 00:15 Total Bilirubin 0.4 (0.2-1.2) mg/dL AST 8 (5-34) Units/L ALT 10 (0-55) Units/L Alkaline Phosphatase 109 (38-126) Units/L Albumin 2.6 L (3.5-5.0) g/dL - ABG Interpretation ABG results: PT/INR, D-dimer PT 13.0 Seconds (9.4-12.1) H 12/12/16 23:06 Consult Discharge Plan - Plan Referrals: NONE,PCP [Primary Care Provider] -
[2016-12-13] MEDS: Insulin DETEMIR 100 UNIT/ML X5UNITS SQ SCH ×2 (10:43→20:42)
[2016-12-13] MEDS: Spironolactone 25 MG TABLET PO SCH (10:43)
[2016-12-13] MEDS: *HR* Rivaroxaban 10 MG TABLET PO SCH (10:44)
[2016-12-13] MEDS: BuPROPion XL (24 HR) 150 MG TABLET PO SCH (10:44)
[2016-12-13] MEDS: Metoprolol XL (24 HR) Succ 50 MG TAB.ER.24H PO SCH (10:45)
[2016-12-13] MEDS: Furosemide 40 MG/4 ML VIAL IVP SCH (10:45)
[2016-12-13] MEDS: amLODIPine 5 MG TABLET PO SCH (10:45)
[2016-12-13] MEDS ORDERED: Vancomycin 2,000 MG in D5% in Water 500 ML IVPB SCH (11:00)
[2016-12-13] MEDS: Fluconazole 100 MG/50 ML 100 MG/50 ML BAG IVPB SCH (11:20)
--- NOTE | 2016-12-13 11:56 | Nephrology Consult Note ---
Date of Encounter: 12/13/16 Time of Encounter: 13:42 Assessment and Plan (1) SHANE (acute kidney injury) Current Visit: Yes Status: Acute serum Cr today 2.05, baseline 1.18 of note, patient does have history of renal artery stenosis. last renal artery duplex from 08/05/15 showed stenosis of the right distal renal artery that was greater than 60%, left renal artery was hemodynamically well maintained. likely multifactorial secondary to sepsis, possible worsening renal artery stenosis. will also consider possible cardiorenal syndrome, glomerulonephritis plan: repeat renal artery ultrasound, retroperitoneal ultrasound give albumin with lasix to encourage intravascular fluid retention will check MALLORY, complement, immunoelecrophoresis check urine protein/Cr ratio. if elevated, will check 24 hour urine study. continue renoprotective strategy, avoid nephrotoxins as much as possible. strict I/O (2) Renal artery stenosis Current Visit: Yes Status: Acute history of renal artery stenosis. will repeat imaging. (3) Anemia Current Visit: Yes Status: Acute Hg today 9.4, baseline around 13 etiolgy unclear at this time. possibilities include GI bleed secondary to xarelto, possible iron deficiency, etc. Plan: stool guiac iron profile, ferritin pending will continue to monitor Hg. Qualifiers: Anemia type: unspecified type Qualified Code(s): D64.9 - Anemia, unspecified (4) Sepsis Current Visit: Yes Status: Acute secondary to bilateral lower extremity cellulitis. right foot xray showed soft tissue ulceration noted along posterior aspect of the heel without evidence of osteomylitis. Plan: vanc zosyn continue to follow renoprotective strategy as much as possible. Echo pending due to suspicion for CHF blood cultures pending Qualifiers: Sepsis type: sepsis due to unspecified organism Qualified Code(s): A41.9 - Sepsis, unspecified organism (5) Uncontrolled diabetes mellitus Current Visit: Yes Status: Acute type 2 uncontrolled DM with glucosuria, proteinura. patient is on vasotec at home. Plan: encouraged lifestyle modifications continue insulin basal and sliding scale monitor blood sugars Qualifiers: Diabetes mellitus type: type 2 Diabetes mellitus complication status: with unspecified complications Diabetes mellitus termite renewal inspector insulin use: unspecified termite renewal inspector insulin use status Qualified Code(s): E11.8 - Type 2 diabetes mellitus with unspecified complications; E11.65 - Type 2 diabetes mellitus with hyperglycemia; E11.65 - Type 2 diabetes mellitus with hyperglycemia; E11.65 - Type 2 diabetes mellitus with hyperglycemia; E11.65 - Type 2 diabetes mellitus with hyperglycemia (6) DVT prophylaxis Current Visit: No Status: Acute on xarelto History of Present Illness - Reason for Consult Consult date: 12/13/16 Acute Kidney Injury Requesting physician: Farzana Do - Chief Complaint bilateral lower extremity edema with cellulitis. - History of Present Illness Mr. Ramirez is a 66 year old male with PMHx of poorly controlled DM, Afib (on xarelto), HTN. Patient arrived to the ED yesterday with chief complaint of bilateral lower extremity edema and cellulitis which lasted approximately two weeks. He states that he recently had a fall at home as well. nephrology was consulted for SHANE workup. Patient is admitted for sepsis secondary to lower extremity cellulitis. He is on vancomycin and zosyn with blood cultures pending. He was hyperglycemic when he came in, with blood sugars in the 400s. patient was admitted for further work up. Today, he denies chest pain, shortness of breath, nausea, vomiting, diarrhea, fever, chills. he denies any further problems today. Past Med Surg Social Fam HX - Past Medical History Medical history: atrial fibrillation, diabetes, hyperlipidemia, hypertension Psychiatric history: no psych history - Past Surgical History Surgical History: appendectomy - Social History Smoking Status: Never smoker Smokeless Tobacco Status: No Alcohol use: none Drug use: none - Family History Mother Living Status: Age at : 75 Cause of : Diabetic complications Father Living Status: Age at : 67 Cause of : Pancreatic Cancer Hx Family Cancer: Yes Medications and Allergies Atorvastatin [Lipitor] 40 mg PO DAILY 03/20/15 [History] Bupropion HCl [Wellbutrin Xl] 300 mg PO DAILY 03/20/15 [History] Enalapril Maleate [Vasotec] 20 mg PO BID 03/20/15 [History] Insulin Glargine,Hum.rec.anlog [Lantus Solostar] 50 unit SQ HS 03/20/15 [History ] Insulin LISPRO [HumaLOG] 15 unit SQ TIDWM 03/20/15 [History] Metformin HCl [Fortamet] 1,000 mg PO BID 03/20/15 [History] Metoprolol XL (24 HR) Succ [Toprol Xl] 150 mg PO DAILY 03/20/15 [History] Oxybutynin Chloride [Ditropan Xl] 10 mg PO DAILY 03/20/15 [History] Rivaroxaban [Xarelto] 20 mg PO DAILY 03/20/15 [History] Tamsulosin [Flomax] 0.4 mg PO DAILY 03/20/15 [History] Amlodipine Besylate 10 mg PO DAILY 12/12/16 [History] 3 Allergy/AdvReac Type Severity Reaction Status Date / Time No Known Allergies Allergy Verified 12/12/16 17:56 Review of Systems All Systems: reviewed and no additional remarkable complaints except as stated Exam - Vital Signs Vital signs: Initial Vital Signs Temp Pulse Resp BP Pulse Ox 97.5 F L 114 20 121/97 93 12/12/16 17:56 12/12/16 17:56 12/12/16 17:56 12/12/16 17:56 12/12/16 17:56 Vital Signs - Last 8 Hours Temp Pulse Resp BP Pulse Ox 12/13/16 10:40 98.2 F 86 20 137/69 94 12/13/16 06:43 98.5 F 73 17 130/76 93 12/13/16 04:00 98.5 F 79 26 141/70 95 Intake and Output 12/12/16 12/13/16 12/13/16 23:59 07:59 15:59 Intake Total 340 / 340 Output Total 600 / 600 400 / 400 Balance -600 / -600 -60 / -60 Intake: IV Fluids 100 / 100 Zosyn 3.375 GM In Dextrose 5% ( 100 / 100 Minibag+) 100 ML 100 ML @ 25 mls/hr IVPB Q8HR [facility] Rx#: [id number] Oral 240 / 240 Output: Catheter 600 / 600 400 / 400 Other: Meal Breakfast Percent of Meal Consumed 50% Stool Size Moderate Stool Consistency formed Stool Characteristics Normal for Patient Stool Color Brown Weight 154.8 kg Blood Glucose* 483 323 364 - General Appearance General appearance: appears started age, obese Neck: no JVD, no thyromegaly, no carotid bruit, supple Additional Comments: decreased breath sounds present. Cardiology: no murmurs, no rub, no gallops, regular rate, regular rhythm Gastrointestinal: normoactive bowel sounds, no tenderness, no masses, obese, distended Additional Comments: bilateral lower extremity edema with fluid leaking. left wills worse than right. left leg has large area of redness secondary to cellulitis with leaking fluid. + 3/4 pitting edema on bilateral lower extremity. Neurologic: no focal deficit, alert and oriented x3 Psychiatric: mood/affect appropriate Results - Lab Results 12/13/16 00:15 12/13/16 00:15 Most recent lab results Calcium 8.1 mg/dL (8.6-10.8) L 12/13/16 00:15 Consult Discharge Plan - Plan Referrals: NONE,PCP [Primary Care Provider] -
--- NOTE | 2016-12-13 14:08 | Electrocardiograph Report ---
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
[2016-12-13] MEDS ORDERED: Perflutren Lipid Microsphere 1.3 ML in 0.9 % Sodium Chloride 8.7 ML IVP ONE (20:44)
[2016-12-13] MEDS ORDERED: Albumin 25% 25gram/100mL 25 GM/100 ML IV.SOLN IVPB SCH ×2 (21:00)
[2016-12-13 21:47] LABS: Protein/Creatinine Ratio,Urine 2.56 mg/mg (0-0.20)
[2016-12-13] MEDS ORDERED: Insulin LISPRO 300 UNITS/3 ML VIAL SQ ONE (22:01)
[2016-12-14] MEDS: Vancomycin 2,000 MG in D5% in Water 500 ML IVPB SCH (00:53)
[2016-12-14] MEDS: Piperacillin/Tazobactam 3.375 GM in D5% in Water (Mini-Bag+) 100 ML IVPB SCH ×3 (00:54→16:05)
[2016-12-14] MEDS: Nystatin Cream 15 GM TUBE TP SCH ×3 (01:07→22:31)
[2016-12-14] MEDS ORDERED: Furosemide 20 MG/2 ML VIAL IVP ONE (02:03)
[2016-12-14] MEDS ORDERED: Albumin 25% 25gram/100mL 25 GM/100 ML IV.SOLN IVPB SCH (05:00)
[2016-12-14 05:50] LABS: Basophils % 0.5 %; Eosinophils # 0.2 K/mcL (0.0-0.6); Eosinophils % 2.3 %; Hematocrit 31.6 % (37.5-50.1); Hemoglobin 9.6 g/dL (12.9-16.9); Immature Granulocytes % 0.9 % (0-4); Immature Platelets 2.8 % (1.1-6.1); Lymphocytes # 0.8 K/mcL (0.6-4.6); Lymphocytes % 10.1 %; Mean Corpuscular HGB Conc 30.4 g/dL (31.6-35.5); Mean Corpuscular Hemoglobin 25.6 pg (28.0-33.3); Mean Corpuscular Volume 84.3 fL (83.0-100.0); Mean Platelet Volume 10.3 fL (9.4-12.4); Monocytes # 0.7 K/mcL (0.0-1.3); Monocytes % 9.2 %; Neutrophils # 5.8 K/mcL (1.6-8.9); Platelet Count 280 K/mcL (140-400); Red Blood Count 3.75 M/mcL (4.19-5.50); Red Cell Distribution Width 16.3 % (11.5-14.5)
[2016-12-14] MEDS: Famotidine 20 MG/2 ML VIAL IVP SCH (05:53)
[2016-12-14 06:01] LABS: % Iron Saturation 9 % (20-55); Iron 19 mcg/dL (65-175); Transferrin 153 mg/dL (174-364)
[2016-12-14 06:02] LABS: Albumin 2.6 g/dL (3.5-5.0); Calcium 8.3 mg/dL (8.6-10.8); Phosphorous 3.4 mg/dL (2.3-4.7)
[2016-12-14 06:04] LABS: Albumin 2.6 g/dL (3.5-5.0); Calcium 8.2 mg/dL (8.6-10.8); Magnesium 1.6 mg/dL (1.6-2.6); Phosphorous 3.4 mg/dL (2.3-4.7); Potassium 3.9 mEq/L (3.5-4.5)
[2016-12-14 06:20] LABS: Ferritin 137 ng/ml (22-275)
[2016-12-14] MEDS: Insulin LISPRO 300 UNITS/3 ML VIAL SQ SCH ×4 (07:30→22:31)
[2016-12-14] MEDS: amLODIPine 5 MG TABLET PO SCH (11:16)
[2016-12-14] MEDS: Insulin DETEMIR 100 UNIT/ML X5UNITS SQ SCH ×2 (11:16→22:31)
[2016-12-14] MEDS: *HR* Rivaroxaban 10 MG TABLET PO SCH (11:16)
[2016-12-14] MEDS: Metoprolol XL (24 HR) Succ 50 MG TAB.ER.24H PO SCH (11:16)
[2016-12-14] MEDS: BuPROPion XL (24 HR) 150 MG TABLET PO SCH (11:16)
[2016-12-14] MEDS: Spironolactone 25 MG TABLET PO SCH (11:16)
[2016-12-14] MEDS: Fluconazole 100 MG/50 ML 100 MG/50 ML BAG IVPB SCH (11:17)
[2016-12-14 12:32] LABS: Lambda Qnt Free Light Chains 3.85 mg/dL (0.57-2.63)
--- NOTE | 2016-12-14 13:48 | Nephrology Progress Note ---
Date of Encounter: 12/14/16 Time of Encounter: 11:00 - Assessment and Plan (1) SHANE (acute kidney injury) Current Visit: Yes Status: Acute serum Cr today 1.87, baseline 1.18 of note, patient does have history of renal artery stenosis. last renal artery duplex from 08/05/15 showed stenosis of the right distal renal artery that was greater than 60%, left renal artery was hemodynamically well maintained. repeat renal artery imaging inconclusive due to bowel gas pattern. likely multifactorial secondary to sepsis, possible worsening renal artery stenosis. will also consider possible cardiorenal syndrome, glomerulonephritis retroperitoneal ultrasound showed no evidence of hydronephrosis. urine protein/Cr ratio 2.56-subnephrotic. urine total protein: 228 plan: patient's renal function is improving. we will continue with diuresis with IV lasix 40mg BID with albumin. MALLORY, complement, immunoelecrophoresis pending. continue renoprotective strategy, avoid nephrotoxins as much as possible. strict I/O no indication for dialysis at this time. no brennan catheter needed from nephrology standpoint. (2) Renal artery stenosis Current Visit: Yes Status: Acute history of renal artery stenosis. repeat renal artery imaging ordered, but study was inadequate due to bowel gas obstruction of the aorta and renals. will attempt to repeat study at a later time. (3) Anemia Current Visit: Yes Status: Chronic Hg today 9.6, baseline around 13 etiolgy unclear at this time. possibilities include GI bleed secondary to xarelto, possible iron deficiency, etc. likely a component of iron deficiency anemia. Plan: stool guiac pending. will hold off on iron supplementation now in setting of sepsis. will continue to monitor Hg. Qualifiers: Anemia type: due to chronic kidney disease Chronic kidney disease stage: stage 3 (moderate) Qualified Code(s): N18.3 - Chronic kidney disease, stage 3 (moderate); D63.1 - Anemia in chronic kidney disease; D63.1 - Anemia in chronic kidney disease (4) Sepsis Current Visit: Yes Status: Acute secondary to bilateral lower extremity cellulitis. right foot xray showed soft tissue ulceration noted along posterior aspect of the heel without evidence of osteomylitis. Echo showed LVEF 55%, jefe LV size and wall thickness, indeterminate diastolic function, RV not well visualized, no significant valvular dysfunction, no pulmonary HTN. Plan: vanc and zosyn continue to follow renoprotective strategy as much as possible. blood cultures pending Qualifiers: Sepsis type: sepsis due to unspecified organism Qualified Code(s): A41.9 - Sepsis, unspecified organism (5) Uncontrolled diabetes mellitus Current Visit: Yes Status: Acute type 2 uncontrolled DM with glucosuria, proteinura. patient is on vasotec at home. Plan: encouraged lifestyle modifications continue insulin basal and sliding scale monitor blood sugars Qualifiers: Diabetes mellitus type: type 2 Diabetes mellitus complication status: with unspecified complications Diabetes mellitus [employer] insulin use: unspecified residential insulin use status Qualified Code(s): E11.8 - Type 2 diabetes mellitus with unspecified complications; E11.65 - Type 2 diabetes mellitus with hyperglycemia; E11.65 - Type 2 diabetes mellitus with hyperglycemia; E11.65 - Type 2 diabetes mellitus with hyperglycemia; E11.65 - Type 2 diabetes mellitus with hyperglycemia (6) DVT prophylaxis Current Visit: No Status: Acute on Xarelto Subjective Principal diagnosis: SHANE Interval history: 66 year old male evaluated at bedside. he denies nausea, vomiting, diarrhea, fever, chills, chest pain, shortness of breath. he has no new problems today. Objective - Vital Signs Vital signs: Vital Signs Temp Pulse Resp BP Pulse Ox 12/14/16 12:13 97.8 F 83 15 141/86 94 12/14/16 06:49 98.1 F 94 15 145/88 93 12/14/16 04:47 98.0 F 91 20 116/68 94 12/13/16 23:14 97.9 F 93 20 148/97 94 12/13/16 19:10 97.6 F 81 18 125/79 96 Intake and Output 12/13/16 12/14/16 12/14/16 23:59 07:59 15:59 Intake Total 100 / 100 200 / 200 Output Total 275 / 275 Balance -175 / -175 200 / 200 Intake: IV Fluids 100 / 100 200 / 200 Flexbumin 25 gm In 100 ml @ 60 100 / 100 mls/hr IVPB Q12H [facility] Rx#: [id number] Zosyn 3.375 GM In Dextrose 5% ( 100 / 100 100 / 100 Minibag+) 100 ML 100 ML @ 25 mls/hr IVPB Q8HR [facility] Rx#: [id number] Output: Catheter 275 / 275 Other: Blood Glucose* 218 221 237 - General Appearance General appearance: Present: well-developed, well-nourished, appears started age , obese Neck: Present: no JVD Additional Comments: CTAB Cardiology: Present: no murmurs, no rub, no gallops, normal S1, normal S2 Additional Comments: obese, distended, nontender, hypoactive bowel sounds. Neurologic: Present: alert and oriented x3 Additional Comments: bilateral lower extremity +2/3 pitting edema with fluid leaking out of skin. bilateral lower extremity cellulitis present. - Lab 12/14/16 05:10 12/14/16 05:10 Most recent lab results Calcium 8.3 mg/dL (8.6-10.8) L 12/14/16 05:10 Phosphorus 3.4 mg/dL (2.3-4.7) 12/14/16 05:10 Magnesium 1.6 mg/dL (1.6-2.6) 12/14/16 05:10 Urine Creatinine 89 mg/dL 12/13/16 17:50 Urine Total Protein 228 mg/dL (1-14) H 12/13/16 17:50 - VTE Documentation of Mechanical Device: Venous foot pump, device Consult Discharge Plan - Plan Referrals: NONE,PCP [Primary Care Provider] -
[2016-12-14] MEDS ORDERED: Magnesium Oxide 400 MG TABLET PO ONE ×2 (14:07→18:00)
[2016-12-14 14:56] LABS: Complement Component 3 150 mg/dL (88-201)
[2016-12-14 14:57] LABS: Complement Component 4 39 mg/dL (10-40)
[2016-12-14] MEDS: Furosemide 40 MG/4 ML VIAL IVP SCH ×2 (16:10→23:05)
[2016-12-14] MEDS ORDERED: Furosemide 40 MG/4 ML VIAL IVP SCH (17:00)
[2016-12-14] MEDS: Miconazole 2% ointment 114 GM TUBE TP SCH (17:04)
[2016-12-14] MEDS: Albumin 25% 25gram/100mL 25 GM/100 ML IV.SOLN IVPB SCH (22:30)
--- NOTE | 2016-12-14 23:19 | Internal Med Progress Note ---
Date of Encounter: 12/14/16 Time of Encounter: 15:00 - Assessment and plan (1) Sepsis Current Visit: Yes Status: Acute Assessment and plan: Secondary to bilateral lower extremity cellulitis. 12/12: prelim positive for Group B Strep and Gram Neg rods. Will continue coverage for both and await sensitivities. Monitor vital signs closely. Lactic acidosis currently improved. Qualifiers: Sepsis type: sepsis due to unspecified organism Qualified Code(s): A41.9 - Sepsis, unspecified organism (2) Cellulitis of both feet Current Visit: Yes Status: Acute Assessment and plan: Difficulty evaluate due to chronic long-standing stasis dermatitis, edema and induration at baseline. Lower extremity elevation. Continue IV Lasix. 12/12 woun culture +gram neg rods and +group B strep. - continue Vanc/Zosyn (3) Atrial fibrillation Current Visit: Yes Status: Chronic Assessment and plan: Currently rate controlled. Continue beta wade. Noted to be on long-term anticoagulation with Xarelto. Qualifiers: Atrial fibrillation type: chronic Qualified Code(s): I48.2 - Chronic atrial fibrillation (4) Poorly controlled diabetes mellitus Current Visit: Yes Status: Chronic Assessment and plan: For outpatient follow-up with medical noncompliance. Hemoglobin A1c noted to be 11.2%. Discussed about the effects of hypoglycemia on wound healing and ongoing nephropathy. Continue Accu-Chek blood glucose monitoring, increase basal insulin, continue sliding scale insulin. Diabetic diet. (5) HTN (hypertension) Current Visit: Yes Status: Chronic Qualifiers: Hypertension type: essential hypertension Qualified Code(s): I10 - Essential (primary) hypertension (6) DVT prophylaxis Current Visit: No Status: Acute (7) Unstable gait Current Visit: No Status: Acute (8) Morbid obesity Current Visit: Yes Status: Chronic (9) 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 underlying condition Current Visit: Yes Status: Acute Qualifiers: Laterality: right Non-pressure ulcer stage: limited to breakdown of skin Qualified Code(s): E08.621 - Diabetes mellitus due to underlying condition with foot ulcer; L97.411 - Non-pressure chronic ulcer of right heel and midfoot limited to breakdown of skin; L97.411 - Non-pressure chronic ulcer of right heel and midfoot limited to breakdown of skin; L97.411 - Non-pressure chronic ulcer of right heel and midfoot limited to breakdown of skin; L97.411 - Non- pressure chronic ulcer of right heel and midfoot limited to breakdown of skin (10) SHANE (acute kidney injury) Current Visit: Yes Status: Acute (11) CHF (congestive heart failure) Current Visit: Yes Status: Acute Qualifiers: Congestive heart failure type: unspecified congestive heart failure type Congestive heart failure chronicity: acute Qualified Code(s): I50.9 - Heart failure, unspecified (12) Fungal infection of the groin Current Visit: Yes Status: Acute (13) Renal artery stenosis Current Visit: Yes Status: Acute - Subjective Interval history: Patient sitting on couch in no acute distress. He denies fevers/chills, chest pain, n/v. States foot feels about the same. - Constitutional Vitals: Temp Pulse Resp BP Pulse Ox 97.7 F 82 18 142/86 93 12/14/16 20:57 12/14/16 20:57 12/14/16 20:57 12/14/16 20:57 12/14/16 20:57 General appearance: Present: cooperative, A&O X 3, morbidly obese, answers questions appropriately Exam: - Respiratory Respiratory exam: Present: CTAB (coarse breath sounds B/L). Absent: accessory muscle use, rales, rhonchi, wheezes - Cardiovascular Cardiovascular exam: Present: RRR, +S1, +S2. Absent: diastolic murmur, gallop, rubs, systolic murmur - GI/Abdominal GI/Abdominal exam: Present: normal bowel sounds, soft, no peritoneal signs. Absent: distended, tenderness Additional comments: chronic panniculitis with pe[place] orange appearance of lower abdomen erythematous dermatitis in lower abdomen and B/L groin areas - Extremities Exam Extremities exam: Present: full ROM, pedal edema, warm, radial pulses palpable and symmetrical. Absent: calf tenderness, cyanotic Additional comments: chronic stasis dermatitis B/L legs, with 4+ pedal edema, induration, multiple blisters/peau d orange appearance Right heel ulcer, stage 2, nontender, dry Internal Medicine: Result - Labs CBC & Chem 7: 12/14/16 05:10 12/14/16 05:10 Labs: Short CBC 12/14/16 Range/Units 05:10 WBC 7.5 (4.3-11.1) K/mcL Hgb 9.6 L (12.9-16.9) g/dL Hct 31.6 L (37.5-50.1) % Plt Count 280 (140-400) K/mcL Neutrophils # 5.8 (1.6-8.9) K/mcL BMP 12/14/16 12/14/16 05:10 05:10 Sodium 136 136 Potassium 3.9 4.0 Chloride 103 103 Carbon Dioxide 22 22 BUN 31 H 31 H Creatinine 1.85 H 1.87 H Glucose 204 H 203 H Calcium 8.2 L 8.3 L Liver Function 12/14/16 12/14/16 Range/Units 05:10 05:10 Albumin 2.6 L 2.6 L (3.5-5.0) g/dL - ABG Interpretation ABG results: PT/INR, D-dimer PT 13.0 Seconds (9.4-12.1) H 12/12/16 23:06 - VTE Documentation of Mechanical Device: Venous foot pump, device Consult Discharge Plan - Plan Referrals: NONE,PCP [Primary Care Provider] -
[2016-12-15] MEDS: Vancomycin 2,000 MG in D5% in Water 500 ML IVPB SCH (01:36)
[2016-12-15] MEDS: Piperacillin/Tazobactam 3.375 GM in D5% in Water (Mini-Bag+) 100 ML IVPB SCH (01:36)
[2016-12-15] MEDS ORDERED: Furosemide 40 MG/4 ML VIAL IVP SCH (05:00)
[2016-12-15 05:44] LABS: Basophils % 0.6 %; Eosinophils # 0.2 K/mcL (0.0-0.6); Eosinophils % 2.1 %; Hematocrit 29.1 % (37.5-50.1); Hemoglobin 8.9 g/dL (12.9-16.9); Immature Granulocytes % 0.6 % (0-4); Lymphocytes # 0.7 K/mcL (0.6-4.6); Lymphocytes % 10.5 %; Mean Corpuscular HGB Conc 30.6 g/dL (31.6-35.5); Mean Corpuscular Hemoglobin 25.4 pg (28.0-33.3); Mean Corpuscular Volume 82.9 fL (83.0-100.0); Mean Platelet Volume 10.4 fL (9.4-12.4); Monocytes # 0.6 K/mcL (0.0-1.3); Neutrophils # 5.4 K/mcL (1.6-8.9); Platelet Count 255 K/mcL (140-400); Red Blood Count 3.51 M/mcL (4.19-5.50); Red Cell Distribution Width 15.9 % (11.5-14.5); Segmented Neutrophils % 77.2 %
[2016-12-15 06:01] LABS: Calcium 8.1 mg/dL (8.6-10.8); Magnesium 1.9 mg/dL (1.6-2.6)
[2016-12-15] MEDS: Furosemide 40 MG/4 ML VIAL IVP SCH ×4 (06:09→22:42)
[2016-12-15] MEDS: Famotidine 20 MG/2 ML VIAL IVP SCH (06:25)
[2016-12-15] MEDS: Metoprolol XL (24 HR) Succ 50 MG TAB.ER.24H PO SCH (08:34)
[2016-12-15] MEDS: Insulin LISPRO 300 UNITS/3 ML VIAL SQ SCH ×4 (08:34→22:42)
[2016-12-15] MEDS: Nystatin Cream 15 GM TUBE TP SCH ×2 (08:35→22:47)
[2016-12-15] MEDS: *HR* Rivaroxaban 10 MG TABLET PO SCH (08:35)
[2016-12-15] MEDS: Miconazole 2% ointment 114 GM TUBE TP SCH (08:35)
[2016-12-15] MEDS: BuPROPion XL (24 HR) 150 MG TABLET PO SCH (08:35)
[2016-12-15] MEDS: amLODIPine 5 MG TABLET PO SCH (08:35)
[2016-12-15] MEDS: Spironolactone 25 MG TABLET PO SCH (08:35)
[2016-12-15] MEDS: Insulin DETEMIR 100 UNIT/ML X5UNITS SQ SCH ×2 (09:39→22:46)
[2016-12-15] MEDS: Albumin 25% 25gram/100mL 25 GM/100 ML IV.SOLN IVPB SCH ×3 (09:39→22:40)
[2016-12-15 10:01] LABS: ANA IgG by ELISA NONE DETECTED (None Detected)
[2016-12-15] MEDS ORDERED: Aminoglycoside Consult 1 EACH MC ONE (10:02)
[2016-12-15] MEDS ORDERED: Piperacillin/Tazobactam 3.375 GM in D5% in Water (Mini-Bag+) 100 ML IVPB SCH (12:00)
[2016-12-15] MEDS: Fluconazole 100 MG/50 ML 100 MG/50 ML BAG IVPB SCH (12:13)
--- NOTE | 2016-12-15 13:52 | Nephrology Progress Note ---
Date of Encounter: 12/15/16 Time of Encounter: 13:50 - Assessment and Plan (1) SHANE (acute kidney injury) Current Visit: Yes Status: Acute serum Cr today 1.93, baseline 1.18 of note, patient does have history of renal artery stenosis. last renal artery duplex from 08/05/15 showed stenosis of the right distal renal artery that was greater than 60%, left renal artery was hemodynamically well maintained. repeat renal artery imaging inconclusive due to bowel gas pattern. likely multifactorial secondary to sepsis, possible worsening renal artery stenosis. will also consider possible cardiorenal syndrome, glomerulonephritis retroperitoneal ultrasound showed no evidence of hydronephrosis. urine protein/Cr ratio 2.56-subnephrotic. urine total protein: 228 C3, C4 levels unremarkable. MALLORY negative. plan: renal function slightly worse than yesterday with net negative I/O of only 250ml yesterday. immunoelecrophoresis pending. continue renoprotective strategy, avoid nephrotoxins as much as possible. strict I/O no urgent indication for dialysis at this time. no brennan catheter needed from nephrology standpoint. increased lasix to 40mg IV TID with albumin for more diuresis. (2) Renal artery stenosis Current Visit: Yes Status: Acute history of renal artery stenosis. repeat renal artery imaging ordered, but study was inadequate due to bowel gas obstruction of the aorta and renals. will attempt to repeat study at a later time. 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 (5) Anemia Current Visit: Yes Status: Chronic Hg today 9.6, baseline around 13 etiolgy unclear at this time. possibilities include GI bleed secondary to xarelto, possible iron deficiency, etc. likely a component of iron deficiency anemia. Plan: stool guiac pending. will hold off on iron supplementation now in setting of sepsis. will continue to monitor Hg. Qualifiers: Anemia type: due to chronic kidney disease Chronic kidney disease stage: stage 3 (moderate) Qualified Code(s): N18.3 - Chronic kidney disease, stage 3 (moderate); D63.1 - Anemia in chronic kidney disease; D63.1 - Anemia in chronic kidney disease (6) Sepsis Current Visit: Yes Status: Acute secondary to bilateral lower extremity cellulitis. right foot xray showed soft tissue ulceration noted along posterior aspect of the heel without evidence of osteomylitis. Echo showed LVEF 55%, jefe LV size and wall thickness, indeterminate diastolic function, RV not well visualized, no significant valvular dysfunction, no pulmonary HTN. blood cultures negative. Plan: per primary continue to follow renoprotective strategy as much as possible. 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 patient is on vasotec at home. Plan: encouraged lifestyle modifications continue insulin basal and sliding scale per primary monitor blood sugars Qualifiers: Diabetes mellitus type: type 2 Diabetes mellitus complication status: with unspecified complications Diabetes mellitus fci insulin use: unspecified fci insulin use status Qualified Code(s): E11.8 - Type 2 diabetes mellitus with unspecified complications; E11.65 - Type 2 diabetes mellitus with hyperglycemia; E11.65 - Type 2 diabetes mellitus with hyperglycemia; E11.65 - Type 2 diabetes mellitus with hyperglycemia; E11.65 - Type 2 diabetes mellitus with hyperglycemia (8) DVT prophylaxis Current Visit: No Status: Acute on Xarelto Subjective Principal diagnosis: SHANE Interval history: 66 year old male evaluated at bedside. he denies nausea, vomiting, diarrhea, fever, chills, chest pain, shortness of breath. he has no new problems today. Objective - Vital Signs Vital signs: Vital Signs Temp Pulse Resp BP Pulse Ox 12/15/16 12:21 97.9 F 77 14 130/67 92 12/15/16 07:12 97.6 F 75 16 130/71 96 12/15/16 05:26 98.2 F 80 18 107/65 92 12/15/16 00:10 98.3 F 100 18 143/74 93 12/14/16 20:57 97.7 F 82 18 142/86 93 12/14/16 16:47 83 15 141/86 94 12/14/16 16:46 89 16 155/91 94 Intake and Output 12/14/16 12/15/16 12/15/16 23:59 07:59 15:59 Intake Total 100 / 100 100 / 100 1060 / 1060 Output Total 650 / 650 0 / 0 Balance -550 / -550 100 / 100 1060 / 1060 Intake: IV Fluids 100 / 100 100 / 100 100 / 100 Flexbumin 25 gm In 100 ml @ 60 100 / 100 100 / 100 mls/hr IVPB Q12H [facility] Rx#: [id number] Zosyn 3.375 GM In Dextrose 5% ( 100 / 100 Minibag+) 100 ML 100 ML @ 25 mls/hr IVPB Q8HR [facility] Rx#: [id number] Oral 960 / 960 Output: Catheter 650 / 650 0 / 0 Other: Meal Breakfast Percent of Meal Consumed 95% Blood Glucose* 251 322 296 - General Appearance General appearance: Present: well-developed, well-nourished, appears started age , obese, chronically ill Neck: Present: no thyromegaly, supple Additional Comments: mild rales, decreased breath sounds. Cardiology: Present: regular rate, regular rhythm, normal S1, normal S2 Additional Comments: obese, distended, hypoactive bowel sounds Additional Comments: bilateral lower lobe extremities covered with emmolient, continues to have +3 pitting edema with swelling and weeping of fluid. Neurologic: Present: alert and oriented x3 Psychiatric: Present: mood/affect appropriate - Lab 12/15/16 05:05 12/15/16 05:05 Most recent lab results Calcium 8.1 mg/dL (8.6-10.8) L 12/15/16 05:05 Phosphorus 3.4 mg/dL (2.3-4.7) 12/14/16 05:10 Magnesium 1.9 mg/dL (1.6-2.6) 12/15/16 05:05 Urine Creatinine 89 mg/dL 12/13/16 17:50 Urine Total Protein 228 mg/dL (1-14) H 12/13/16 17:50 - VTE Documentation of Mechanical Device: Venous foot pump, device Consult Discharge Plan - Plan Referrals: NONE,PCP [Primary Care Provider] -
[2016-12-15 15:51] LABS: Alpha 2 Globulin (PEP) 1.09 g/dL (0.48-1.05); Beta Globulin (PEP) 0.79 g/dL (0.48-1.10)
[2016-12-15] MEDS: Ampicillin/Sulbactam 1,500 MG in 0.9 % Sodium Chloride Mini Bag 100 ML IVPB SCH (18:20)
--- NOTE | 2016-12-15 22:28 | Internal Med Progress Note ---
Date of Encounter: 12/15/16 Time of Encounter: 12:30 - Assessment and plan (1) Cellulitis of both feet Current Visit: Yes Status: Acute Assessment and plan: Difficulty evaluate due to chronic long-standing stasis dermatitis, edema and induration at baseline. Lower extremity elevation. Continue IV Lasix. As above. Start Unasyn, d/c vanc/zosyn (2) Sepsis Current Visit: Yes Status: Acute Assessment and plan: Secondary to bilateral lower extremity cellulitis. 12/12: Wound culture positive for Group B Strep and Gram Neg rods. Will continue coverage for both and await sensitivities. Monitor vital signs closely. Lactic acidosis currently improved. 12/15: Sensitivities resulted. Based on results, will switch to Unasyn and d/c vanc/zosyn. Needs PICC placed today Qualifiers: Sepsis type: sepsis due to unspecified organism Qualified Code(s): A41.9 - Sepsis, unspecified organism (3) SHANE (acute kidney injury) Current Visit: Yes Status: Acute Assessment and plan: Nephrology following, appreciate recommendations. 12/15: Vanc/Zosyn discontinued as sensitivities have resulted. Now on Unasyn which requires less renal dosing. . (4) Atrial fibrillation Current Visit: Yes Status: Chronic Assessment and plan: Currently rate controlled. Continue beta wade. Noted to be on long-term anticoagulation with Xarelto. Qualifiers: Atrial fibrillation type: chronic Qualified Code(s): I48.2 - Chronic atrial fibrillation (5) Poorly controlled diabetes mellitus Current Visit: Yes Status: Chronic (6) HTN (hypertension) Current Visit: Yes Status: Chronic Qualifiers: Hypertension type: essential hypertension Qualified Code(s): I10 - Essential (primary) hypertension (7) DVT prophylaxis Current Visit: No Status: Acute (8) Unstable gait Current Visit: No Status: Acute (9) Morbid obesity Current Visit: Yes Status: Chronic (10) 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 underlying condition Current Visit: Yes Status: Acute Qualifiers: Laterality: right Non-pressure ulcer stage: limited to breakdown of skin Qualified Code(s): E08.621 - Diabetes mellitus due to underlying condition with foot ulcer; L97.411 - Non-pressure chronic ulcer of right heel and midfoot limited to breakdown of skin; L97.411 - Non-pressure chronic ulcer of right heel and midfoot limited to breakdown of skin; L97.411 - Non-pressure chronic ulcer of right heel and midfoot limited to breakdown of skin; L97.411 - Non- pressure chronic ulcer of right heel and midfoot limited to breakdown of skin (11) CHF (congestive heart failure) Current Visit: Yes Status: Acute Qualifiers: Congestive heart failure type: unspecified congestive heart failure type Congestive heart failure chronicity: acute Qualified Code(s): I50.9 - Heart failure, unspecified (12) Fungal infection of the groin Current Visit: Yes Status: Acute (13) Renal artery stenosis Current Visit: Yes Status: Acute - Subjective Interval history: He denies fevers/chills, chest pain, n/v. States foot feels about the same. - Constitutional Vitals: Temp Pulse Resp BP Pulse Ox 98.2 F 79 19 139/76 95 12/15/16 20:24 12/15/16 20:24 12/15/16 20:24 12/15/16 20:24 12/15/16 20:24 General appearance: Present: cooperative, A&O X 3, morbidly obese, answers questions appropriately Exam: - Respiratory Respiratory exam: Present: CTAB (coarse breath sounds B/L). Absent: accessory muscle use, rales, rhonchi, wheezes - Cardiovascular Cardiovascular exam: Present: RRR, +S1, +S2. Absent: diastolic murmur, gallop, rubs, systolic murmur - GI/Abdominal GI/Abdominal exam: Present: normal bowel sounds, soft, no peritoneal signs. Absent: distended, tenderness Additional comments: chronic panniculitis with peau [place] orange appearance of lower abdomen erythematous dermatitis in lower abdomen and B/L groin areas - Extremities Exam Additional comments: chronic stasis dermatitis B/L legs, with now 2+ pedal edema, induration, blisters improved Right heel ulcer, stage 2, nontender, dry Internal Medicine: Result - Labs CBC & Chem 7: 12/15/16 05:05 12/15/16 05:05 Labs: Short CBC 12/15/16 Range/Units 05:05 WBC 7.0 (4.3-11.1) K/mcL Hgb 8.9 L (12.9-16.9) g/dL Hct 29.1 L (37.5-50.1) % Plt Count 255 (140-400) K/mcL Neutrophils # 5.4 (1.6-8.9) K/mcL BMP 12/15/16 05:05 Sodium 134 L Potassium 4.0 Chloride 103 Carbon Dioxide 22 BUN 33 H Creatinine 1.93 H Glucose 330 H Calcium 8.1 L - ABG Interpretation ABG results: PT/INR, D-dimer PT 13.0 Seconds (9.4-12.1) H 12/12/16 23:06 - VTE Documentation of Mechanical Device: Venous foot pump, device Consult Discharge Plan - Plan Referrals: NONE,PCP [Primary Care Provider] -
[2016-12-16] MEDS: Ampicillin/Sulbactam 1,500 MG in 0.9 % Sodium Chloride Mini Bag 100 ML IVPB SCH ×4 (02:13→18:12)
[2016-12-16] MEDS: Famotidine 20 MG/2 ML VIAL IVP SCH (05:35)
[2016-12-16] MEDS: Spironolactone 25 MG TABLET PO SCH (08:01)
[2016-12-16] MEDS: Fluconazole 100 MG/50 ML 100 MG/50 ML BAG IVPB SCH (08:01)
[2016-12-16] MEDS: Miconazole 2% ointment 114 GM TUBE TP SCH (08:02)
[2016-12-16] MEDS: Metoprolol XL (24 HR) Succ 50 MG TAB.ER.24H PO SCH (08:02)
[2016-12-16] MEDS: *HR* Rivaroxaban 10 MG TABLET PO SCH (08:02)
[2016-12-16] MEDS: amLODIPine 5 MG TABLET PO SCH (08:02)
[2016-12-16] MEDS: Nystatin Cream 15 GM TUBE TP SCH ×2 (08:03→21:43)
[2016-12-16] MEDS: Insulin LISPRO 300 UNITS/3 ML VIAL SQ SCH ×4 (08:03→21:43)
[2016-12-16 08:38] LABS: IFE Reflexed IFE Done; Immunoglobulin A 313 mg/dL (68-408); Immunoglobulin G 1240 mg/dL (768-1632); Immunoglobulin M 70 mg/dL (35-263)
[2016-12-16] MEDS: Furosemide 40 MG/4 ML VIAL IVP SCH ×3 (09:10→21:43)
[2016-12-16] MEDS: Albumin 25% 25gram/100mL 25 GM/100 ML IV.SOLN IVPB SCH ×3 (09:10→21:42)
[2016-12-16] MEDS ORDERED: Insulin DETEMIR 100 UNIT/ML X5UNITS SQ ONE (09:16)
[2016-12-16] MEDS: BuPROPion XL (24 HR) 150 MG TABLET PO SCH (09:53)
[2016-12-16] MEDS: Insulin DETEMIR 100 UNIT/ML X5UNITS SQ SCH ×2 (09:53→21:43)
[2016-12-16 10:13] LABS: Basophils % 0.6 %; Eosinophils # 0.1 K/mcL (0.0-0.6); Eosinophils % 2.1 %; Hematocrit 28.3 % (37.5-50.1); Hemoglobin 8.6 g/dL (12.9-16.9); Immature Granulocytes % 0.3 % (0-4); Lymphocytes # 0.8 K/mcL (0.6-4.6); Lymphocytes % 11.1 %; Mean Corpuscular HGB Conc 30.4 g/dL (31.6-35.5); Mean Corpuscular Hemoglobin 25.4 pg (28.0-33.3); Mean Corpuscular Volume 83.5 fL (83.0-100.0); Mean Platelet Volume 10.4 fL (9.4-12.4); Monocytes # 0.6 K/mcL (0.0-1.3); Monocytes % 9.5 %; Neutrophils # 5.1 K/mcL (1.6-8.9); Platelet Count 251 K/mcL (140-400); Red Blood Count 3.39 M/mcL (4.19-5.50); Segmented Neutrophils % 76.4 %
[2016-12-16 10:29] LABS: Calcium 8.4 mg/dL (8.6-10.8); Magnesium 2.1 mg/dL (1.6-2.6); Phosphorous 3.7 mg/dL (2.3-4.7); Potassium 4.2 mEq/L (3.5-4.5)
--- NOTE | 2016-12-16 14:48 | Nephrology Progress Note ---
Date of Encounter: 12/16/16 Time of Encounter: 07:45 - Assessment and Plan (1) SHANE (acute kidney injury) Current Visit: Yes Status: Acute serum Cr today worsened, 2.14, baseline 1.18 of note, patient does have history of renal artery stenosis. last renal artery duplex from 08/05/15 showed stenosis of the right distal renal artery that was greater than 60%, left renal artery was hemodynamically well maintained. repeat renal artery imaging inconclusive due to bowel gas pattern. likely multifactorial secondary to sepsis, possible worsening renal artery stenosis. will also consider possible cardiorenal syndrome, glomerulonephritis retroperitoneal ultrasound showed no evidence of hydronephrosis. urine protein/Cr ratio 2.56-subnephrotic. urine total protein: 228 C3, C4 levels unremarkable. MALLORY negative. plan: immunoelecrophoresis pending. continue renoprotective strategy, avoid nephrotoxins as much as possible. strict I/O no urgent indication for dialysis at this time. no brennan catheter needed from nephrology standpoint. decreased lasix to BID with albumin as renal function has worsened. (2) Renal artery stenosis Current Visit: Yes Status: Acute history of renal artery stenosis. repeat renal artery imaging ordered, but study was inadequate due to bowel gas obstruction of the aorta and renals. will attempt to repeat study at a later time. 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 (5) Anemia Current Visit: Yes Status: Chronic Hg today 8.6, baseline around 13 etiolgy unclear at this time. possibilities include GI bleed secondary to xarelto, possible iron deficiency, etc. likely a component of iron deficiency anemia. Plan: stool guiac pending. will hold off on iron supplementation now in setting of sepsis. will continue to monitor Hg. Qualifiers: Anemia type: due to chronic kidney disease Chronic kidney disease stage: stage 3 (moderate) Qualified Code(s): N18.3 - Chronic kidney disease, stage 3 (moderate); D63.1 - Anemia in chronic kidney disease; D63.1 - Anemia in chronic kidney disease (6) Sepsis Current Visit: Yes Status: Acute secondary to bilateral lower extremity cellulitis. right foot xray showed soft tissue ulceration noted along posterior aspect of the heel without evidence of osteomylitis. Echo showed LVEF 55%, jefe LV size and wall thickness, indeterminate diastolic function, RV not well visualized, no significant valvular dysfunction, no pulmonary HTN. blood cultures negative. Plan: per primary continue to follow renoprotective strategy as much as possible. 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 patient is on vasotec at home. Plan: encouraged lifestyle modifications continue insulin basal and sliding scale per primary monitor blood sugars Qualifiers: Diabetes mellitus type: type 2 Diabetes mellitus complication status: with unspecified complications Diabetes mellitus fpc insulin use: unspecified fpc insulin use status Qualified Code(s): E11.8 - Type 2 diabetes mellitus with unspecified complications; E11.65 - Type 2 diabetes mellitus with hyperglycemia; E11.65 - Type 2 diabetes mellitus with hyperglycemia; E11.65 - Type 2 diabetes mellitus with hyperglycemia; E11.65 - Type 2 diabetes mellitus with hyperglycemia (8) DVT prophylaxis Current Visit: No Status: Acute on Xarelto Subjective Principal diagnosis: SHANE Interval history: 66 year old male evaluated at bedside. he denies nausea, vomiting, diarrhea, fever, chills, chest pain, shortness of breath. he has no new problems today. Objective - Vital Signs Vital signs: Vital Signs Temp Pulse Resp BP Pulse Ox 12/16/16 09:44 98.1 F 83 16 123/74 94 12/16/16 07:20 98.4 F 79 18 127/76 93 12/16/16 03:49 98.2 F 84 20 122/88 91 12/15/16 23:47 97.7 F 77 20 144/76 94 12/15/16 20:24 98.2 F 79 19 139/76 95 Intake and Output 12/15/16 12/16/16 12/16/16 23:59 07:59 15:59 Intake Total 854 / 854 550 / 550 350 / 350 Output Total 500 / 500 950 / 950 Balance 354 / 354 -400 / -400 350 / 350 Intake: IV Fluids 200 / 200 100 / 100 350 / 350 Flexbumin 25 gm In 100 ml @ 60 100 / 100 200 / 200 mls/hr IVPB TID [facility] Rx#: [id number] Unasyn 1,500 mg In 0.9 % Sodium 100 / 100 100 / 100 100 / 100 Chloride (Mini-Bag +) 100 ML @ 200 mls/hr IVPB Q6HR [facility] Rx#: [id number] Diflucan 100 MG/50 ML 100 mg In 50 / 50 50 ml @ 50 mls/hr IVPB DAILY [facility] Rx#:[id number] Oral 654 / 654 450 / 450 Output: Catheter 500 / 500 950 / 950 Other: Stool Size Small Stool Consistency loose Stool Color Brown Blood Glucose* [phone] - General Appearance General appearance: Present: well-developed, well-nourished, appears started age , obese Neck: Present: no JVD Additional Comments: CTAB Cardiology: Present: edema, regular rate, regular rhythm, normal S1, normal S2 Gastrointestinal: Present: hypoactive bowel sounds, no tenderness, no guarding, no organomegaly, no masses Additional Comments: bilateral lower extremity cellulitis. still edema present but improved from prior. +2 bilateral lower extremity pitting edema. Neurologic: Present: alert and oriented x3 Psychiatric: Present: mood/affect appropriate - Lab 12/16/16 08:10 12/16/16 08:10 Most recent lab results Calcium 8.4 mg/dL (8.6-10.8) L 12/16/16 08:10 Phosphorus 3.7 mg/dL (2.3-4.7) 12/16/16 08:10 Magnesium 2.1 mg/dL (1.6-2.6) 12/16/16 08:10 Urine Creatinine 89 mg/dL 12/13/16 17:50 Urine Total Protein 228 mg/dL (1-14) H 12/13/16 17:50 - VTE Documentation of Mechanical Device: Venous foot pump, device Consult Discharge Plan - Plan Referrals: NONE,PCP [Primary Care Provider] -
[2016-12-17 05:22] LABS: Calcium 8.9 mg/dL (8.6-10.8); Potassium 4.5 mEq/L (3.5-4.5)
[2016-12-17] MEDS: Ampicillin/Sulbactam 1,500 MG in 0.9 % Sodium Chloride Mini Bag 100 ML IVPB SCH ×5 (06:03→23:32)
[2016-12-17] MEDS: Famotidine 20 MG/2 ML VIAL IVP SCH (06:08)
[2016-12-17 07:37] LABS: Myeloperoxidase Ab 2 AU/mL (0-19); Serine Protease-3 Antibody 0 AU/mL (0-19)
[2016-12-17] MEDS: BuPROPion XL (24 HR) 150 MG TABLET PO SCH (08:31)
[2016-12-17] MEDS: Metoprolol XL (24 HR) Succ 50 MG TAB.ER.24H PO SCH (08:31)
[2016-12-17] MEDS: amLODIPine 5 MG TABLET PO SCH (08:31)
[2016-12-17] MEDS: *HR* Rivaroxaban 10 MG TABLET PO SCH (08:31)
[2016-12-17] MEDS: Insulin LISPRO 300 UNITS/3 ML VIAL SQ SCH ×4 (08:32→21:40)
[2016-12-17] MEDS: Spironolactone 25 MG TABLET PO SCH (08:32)
[2016-12-17] MEDS: Fluconazole 100 MG/50 ML 100 MG/50 ML BAG IVPB SCH (08:33)
[2016-12-17] MEDS: Nystatin Cream 15 GM TUBE TP SCH ×2 (08:39→21:40)
[2016-12-17] MEDS: Miconazole 2% ointment 114 GM TUBE TP SCH (08:39)
[2016-12-17] MEDS: Insulin DETEMIR 100 UNIT/ML X5UNITS SQ SCH ×2 (09:55→21:39)
[2016-12-17] MEDS: Furosemide 40 MG/4 ML VIAL IVP SCH ×2 (09:55→21:38)
[2016-12-17] MEDS: Albumin 25% 25gram/100mL 25 GM/100 ML IV.SOLN IVPB SCH ×2 (09:56→21:39)
--- NOTE | 2016-12-17 10:18 | Nephrology Progress Note ---
Date of Encounter: 12/17/16 Time of Encounter: 10:16 - Assessment and Plan (1) SHANE (acute kidney injury) Current Visit: Yes Status: Acute serum Cr today worsened, 2.14, baseline 1.18 of note, patient does have history of renal artery stenosis. last renal artery duplex from 08/05/15 showed stenosis of the right distal renal artery that was greater than 60%, left renal artery was hemodynamically well maintained. repeat renal artery imaging inconclusive due to bowel gas pattern. likely multifactorial secondary to sepsis, possible worsening renal artery stenosis. will also consider possible cardiorenal syndrome, glomerulonephritis retroperitoneal ultrasound showed no evidence of hydronephrosis. urine protein/Cr ratio 2.56-subnephrotic. urine total protein: 228 C3, C4 levels unremarkable. MALLORY negative. immunoelecrophesis unremarkable. plan: continue renoprotective strategy, avoid nephrotoxins as much as possible. strict I/O no urgent indication for dialysis at this time. no brennan catheter needed from nephrology standpoint. continue lasix to BID with albumin (2) Renal artery stenosis Current Visit: Yes Status: Acute history of renal artery stenosis. repeat renal artery imaging ordered, but study was inadequate due to bowel gas obstruction of the aorta and renals. recommend follow up outpatient. 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 (5) Anemia Current Visit: Yes Status: Chronic Hg today 8.6, baseline around 13 etiolgy unclear at this time. possibilities include GI bleed secondary to xarelto, etc. likely a component of iron deficiency anemia. Plan: stool guiac pending. will hold off on iron supplementation now in setting of sepsis. will continue to monitor Hg. Qualifiers: Anemia type: due to chronic kidney disease Chronic kidney disease stage: stage 3 (moderate) Qualified Code(s): N18.3 - Chronic kidney disease, stage 3 (moderate); D63.1 - Anemia in chronic kidney disease; D63.1 - Anemia in chronic kidney disease (6) Sepsis Current Visit: Yes Status: Acute secondary to bilateral lower extremity cellulitis. right foot xray showed soft tissue ulceration noted along posterior aspect of the heel without evidence of osteomylitis. Echo showed LVEF 55%, jefe LV size and wall thickness, indeterminate diastolic function, RV not well visualized, no significant valvular dysfunction, no pulmonary HTN. blood cultures negative. Plan: per primary continue to follow renoprotective strategy as much as possible. 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 patient is on vasotec at home. Plan: encouraged lifestyle modifications continue insulin basal and sliding scale per primary monitor blood sugars Qualifiers: Diabetes mellitus type: type 2 Diabetes mellitus complication status: with unspecified complications Diabetes mellitus jail insulin use: unspecified jail insulin use status Qualified Code(s): E11.8 - Type 2 diabetes mellitus with unspecified complications; E11.65 - Type 2 diabetes mellitus with hyperglycemia; E11.65 - Type 2 diabetes mellitus with hyperglycemia; E11.65 - Type 2 diabetes mellitus with hyperglycemia; E11.65 - Type 2 diabetes mellitus with hyperglycemia (8) DVT prophylaxis Current Visit: No Status: Acute on Xarelto Subjective Principal diagnosis: SHANE Interval history: 66 year old male evaluated at bedside. he denies nausea, vomiting, diarrhea, fever, chest pain, shortness of breath. he does admit to having some chills. Objective - Vital Signs Vital signs: Vital Signs Temp Pulse Resp BP Pulse Ox 12/17/16 06:58 98.5 F 71 16 149/73 92 12/17/16 00:22 98.6 F 76 16 158/67 91 12/16/16 20:00 97.1 F L 74 20 158/97 95 12/16/16 14:58 97.9 F 88 16 127/83 93 Intake and Output 12/16/16 12/17/16 12/17/16 23:59 07:59 15:59 Intake Total 200 / 200 386 / 386 Output Total 500 / 500 Balance -300 / -300 386 / 386 Intake: IV Fluids 200 / 200 150 / 150 Flexbumin 25 gm In 100 ml @ 60 100 / 100 mls/hr IVPB Q12H [facility] Rx#: [id number] Unasyn 1,500 mg In 0.9 % Sodium 100 / 100 100 / 100 Chloride (Mini-Bag +) 100 ML @ 200 mls/hr IVPB Q6HR [facility] Rx#: [id number] Diflucan 100 MG/50 ML 100 mg In 50 / 50 50 ml @ 50 mls/hr IVPB DAILY [facility] Rx#:[id number] Oral 236 / 236 Output: Catheter 500 / 500 Other: Meal Lunch Breakfast Percent of Meal Consumed 75% 75% Stool Size Moderate Stool Consistency loose liquid Stool Characteristics Mucoid # Bowel Movement Diapers 3 Blood Glucose* 218 226 - General Appearance General appearance: Present: well-developed, well-nourished, appears started age , obese, chronically ill Neck: Present: no JVD Additional Comments: mild wheezing noted. Cardiology: Present: no murmurs, no rub, no gallops, regular rate, regular rhythm, normal S1, normal S2 Gastrointestinal: Present: normoactive bowel sounds, no tenderness, no guarding , no organomegaly, obese Additional Comments: bilateral lower extremity +2 edema with fluid seeping from skin. bilateral lower extremity cellulitis. Neurologic: Present: alert and oriented x3 - Lab 12/16/16 08:10 12/17/16 04:35 Most recent lab results Calcium 8.9 mg/dL (8.6-10.8) 12/17/16 04:35 Phosphorus 3.7 mg/dL (2.3-4.7) 12/16/16 08:10 Magnesium 2.1 mg/dL (1.6-2.6) 12/16/16 08:10 Urine Creatinine 89 mg/dL 12/13/16 17:50 Urine Total Protein 228 mg/dL (1-14) H 12/13/16 17:50 - VTE Documentation of Mechanical Device: Venous foot pump, device Consult Discharge Plan - Plan Referrals: NONE,PCP [Primary Care Provider] -
--- NOTE | 2016-12-17 21:46 | Internal Med Progress Note ---
Date of Encounter: 12/16/16 Time of Encounter: 16:51 - Assessment and plan (1) Cellulitis of both feet Current Visit: Yes Status: Acute Assessment and plan: Difficulty evaluate due to chronic long-standing stasis dermatitis, edema and induration at baseline. Lower extremity elevation. Continue IV Lasix. As above. Start Unasyn, d/c vanc/zosyn (2) Sepsis Current Visit: Yes Status: Acute Assessment and plan: Secondary to bilateral lower extremity cellulitis. 12/12: Wound culture positive for Group B Strep and Gram Neg rods. Will continue coverage for both and await sensitivities. Monitor vital signs closely. Lactic acidosis currently improved. 12/15: Sensitivities resulted. Based on results, will switch to Unasyn and d/c vanc/zosyn. Needs PICC placed today Qualifiers: Sepsis type: sepsis due to unspecified organism Qualified Code(s): A41.9 - Sepsis, unspecified organism (3) SHANE (acute kidney injury) Current Visit: Yes Status: Acute Assessment and plan: Nephrology following, appreciate recommendations. 12/15: Vanc/Zosyn discontinued as sensitivities have resulted. Now on Unasyn which requires less renal dosing. . (4) Atrial fibrillation Current Visit: Yes Status: Chronic Assessment and plan: Currently rate controlled. Continue beta wade. Noted to be on long-term anticoagulation with Xarelto. Qualifiers: Atrial fibrillation type: chronic Qualified Code(s): I48.2 - Chronic atrial fibrillation (5) Poorly controlled diabetes mellitus Current Visit: Yes Status: Chronic Assessment and plan: For outpatient follow-up with medical noncompliance. Hemoglobin A1c noted to be 11.2%. Discussed about the effects of hypoglycemia on wound healing and ongoing nephropathy. Continue Accu-Chek blood glucose monitoring, increase basal insulin, continue sliding scale insulin. Diabetic diet. (6) HTN (hypertension) Current Visit: Yes Status: Chronic Qualifiers: Hypertension type: essential hypertension Qualified Code(s): I10 - Essential (primary) hypertension (7) DVT prophylaxis Current Visit: No Status: Acute (8) Unstable gait Current Visit: No Status: Acute (9) Morbid obesity Current Visit: Yes Status: Chronic (10) 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 underlying condition Current Visit: Yes Status: Acute Qualifiers: Laterality: right Non-pressure ulcer stage: limited to breakdown of skin Qualified Code(s): E08.621 - Diabetes mellitus due to underlying condition with foot ulcer; L97.411 - Non-pressure chronic ulcer of right heel and midfoot limited to breakdown of skin; L97.411 - Non-pressure chronic ulcer of right heel and midfoot limited to breakdown of skin; L97.411 - Non-pressure chronic ulcer of right heel and midfoot limited to breakdown of skin; L97.411 - Non- pressure chronic ulcer of right heel and midfoot limited to breakdown of skin (11) CHF (congestive heart failure) Current Visit: Yes Status: Acute Qualifiers: Congestive heart failure type: unspecified congestive heart failure type Congestive heart failure chronicity: acute Qualified Code(s): I50.9 - Heart failure, unspecified (12) Fungal infection of the groin Current Visit: Yes Status: Acute (13) Renal artery stenosis Current Visit: Yes Status: Acute - Subjective Interval history: He denies fevers/chills, chest pain, n/v. States foot feels about the same. - Constitutional Vitals: Temp Pulse Resp BP Pulse Ox 97.7 F 80 18 125/65 91 12/17/16 19:19 12/17/16 19:19 12/17/16 19:19 12/17/16 19:19 12/17/16 19:19 General appearance: Present: cooperative, A&O X 3, morbidly obese, answers questions appropriately Exam: - Respiratory Respiratory exam: Present: CTAB (coarse breath sounds B/L). Absent: accessory muscle use, rales, rhonchi, wheezes - Cardiovascular Cardiovascular exam: Present: RRR, +S1, +S2. Absent: diastolic murmur, gallop, rubs, systolic murmur - GI/Abdominal GI/Abdominal exam: Present: normal bowel sounds, soft, no peritoneal signs. Absent: distended, tenderness Additional comments: chronic panniculitis with [place] appearance of lower abdomen erythematous dermatitis in lower abdomen and B/L groin areas - Extremities Exam Additional comments: chronic stasis dermatitis B/L legs, 1+ edema, induration, blisters gone Right heel ulcer, stage 2, nontender, dry Internal Medicine: Result - Labs CBC & Chem 7: 12/16/16 08:10 12/17/16 04:35 Labs: BMP 12/17/16 04:35 Sodium 140 Potassium 4.5 Chloride 106 Carbon Dioxide 25 BUN 42 H Creatinine 2.18 H Glucose 242 H Calcium 8.9 - ABG Interpretation ABG results: PT/INR, D-dimer PT 13.0 Seconds (9.4-12.1) H 12/12/16 23:06 - VTE Documentation of Mechanical Device: Venous foot pump, device Consult Discharge Plan - Plan Referrals: NONE,PCP [Primary Care Provider] -
--- NOTE | 2016-12-17 21:59 | Internal Med Progress Note ---
Date of Encounter: 12/17/16 Time of Encounter: 17:57 - Assessment and plan (1) SHANE (acute kidney injury) Current Visit: Yes Status: Acute Assessment and plan: Non-compliant diabetic with complication of renal artery stenosis. Unsure of his true baseline prior to admission, as his prior renal functions were seen 2015. Nephrology is following, recommendations are appreciated. Will continue optimize recovery with medication selections as workup and treatment are ongoing. . (2) Cellulitis of both feet Current Visit: Yes Status: Acute Assessment and plan: Continue Unasyn, Vanc/Zosyn DC'd. Sensitivities promote choice and avoid vancomycin and zosyn which requires renal dosing (3) Sepsis Current Visit: Yes Status: Acute Assessment and plan: Secondary to bilateral lower extremity cellulitis. 12/12: Wound culture positive for Group B Strep and Gram Neg rods. Will continue coverage for both and await sensitivities. Monitor vital signs closely. Lactic acidosis currently improved. 12/15: Sensitivities resulted. Based on results, will switch to Unasyn and d/c vanc/zosyn. Needs PICC placed today Qualifiers: Sepsis type: sepsis due to unspecified organism Qualified Code(s): A41.9 - Sepsis, unspecified organism (4) Atrial fibrillation Current Visit: Yes Status: Chronic Qualifiers: Atrial fibrillation type: chronic Qualified Code(s): I48.2 - Chronic atrial fibrillation (5) Poorly controlled diabetes mellitus Current Visit: Yes Status: Chronic (6) HTN (hypertension) Current Visit: Yes Status: Chronic Qualifiers: Hypertension type: essential hypertension Qualified Code(s): I10 - Essential (primary) hypertension (7) DVT prophylaxis Current Visit: No Status: Acute (8) Unstable gait Current Visit: No Status: Acute (9) Morbid obesity Current Visit: Yes Status: Chronic (10) 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 underlying condition Current Visit: Yes Status: Acute Qualifiers: Laterality: right Non-pressure ulcer stage: limited to breakdown of skin Qualified Code(s): E08.621 - Diabetes mellitus due to underlying condition with foot ulcer; L97.411 - Non-pressure chronic ulcer of right heel and midfoot limited to breakdown of skin; L97.411 - Non-pressure chronic ulcer of right heel and midfoot limited to breakdown of skin; L97.411 - Non-pressure chronic ulcer of right heel and midfoot limited to breakdown of skin; L97.411 - Non- pressure chronic ulcer of right heel and midfoot limited to breakdown of skin (11) CHF (congestive heart failure) Current Visit: Yes Status: Acute Qualifiers: Congestive heart failure type: unspecified congestive heart failure type Congestive heart failure chronicity: acute Qualified Code(s): I50.9 - Heart failure, unspecified (12) Fungal infection of the groin Current Visit: Yes Status: Acute (13) Renal artery stenosis Current Visit: Yes Status: Acute - Subjective Interval history: Had difficulty sleeping, otherwise no complaints. He denies fevers/chills, chest pain, n/v. - Constitutional Vitals: Temp Pulse Resp BP Pulse Ox 97.7 F 80 18 125/65 91 12/17/16 19:19 12/17/16 19:19 12/17/16 19:19 12/17/16 19:19 12/17/16 19:19 General appearance: Present: cooperative, A&O X 3, morbidly obese, answers questions appropriately Exam: - Respiratory Respiratory exam: Present: CTAB (coarse breath sounds B/L). Absent: accessory muscle use, rales, rhonchi, wheezes - Cardiovascular Cardiovascular exam: Present: irregular rhythm , +S1, +S2. Absent: diastolic murmur, gallop, rubs, systolic murmur - Extremities Exam Extremities exam: Present: full ROM, pedal edema, warm, radial pulses palpable and symmetrical. Absent: calf tenderness, cyanotic Additional comments: chronic stasis dermatitis, 2+ bipedal edema, induration, multiple blisters now healing Right heel ulcer, stage 2, nontender, dry Internal Medicine: Result - Labs CBC & Chem 7: 12/16/16 08:10 12/17/16 04:35 Labs: BMP 12/17/16 04:35 Sodium 140 Potassium 4.5 Chloride 106 Carbon Dioxide 25 BUN 42 H Creatinine 2.18 H Glucose 242 H Calcium 8.9 - ABG Interpretation ABG results: PT/INR, D-dimer PT 13.0 Seconds (9.4-12.1) H 12/12/16 23:06 - VTE Documentation of Mechanical Device: Venous foot pump, device Consult Discharge Plan - Plan Referrals: NONE,PCP [Primary Care Provider] -
[2016-12-18 05:27] LABS: Basophils % 0.5 %; Eosinophils # 0.2 K/mcL (0.0-0.6); Eosinophils % 3.1 %; Hematocrit 28.3 % (37.5-50.1); Hemoglobin 8.7 g/dL (12.9-16.9); Immature Granulocytes % 0.8 % (0-4); Lymphocytes # 0.8 K/mcL (0.6-4.6); Lymphocytes % 12.2 %; Mean Corpuscular HGB Conc 30.7 g/dL (31.6-35.5); Mean Corpuscular Hemoglobin 25.5 pg (28.0-33.3); Mean Platelet Volume 9.6 fL (9.4-12.4); Monocytes # 0.6 K/mcL (0.0-1.3); Monocytes % 9.9 %; Neutrophils # 4.8 K/mcL (1.6-8.9); Platelet Count 249 K/mcL (140-400); Red Blood Count 3.41 M/mcL (4.19-5.50); Segmented Neutrophils % 73.5 %
[2016-12-18 05:39] LABS: Potassium 4.5 mEq/L (3.5-4.5)
[2016-12-18] MEDS: Ampicillin/Sulbactam 1,500 MG in 0.9 % Sodium Chloride Mini Bag 100 ML IVPB SCH ×3 (06:29→18:32)
[2016-12-18] MEDS: Famotidine 20 MG/2 ML VIAL IVP SCH (06:29)
[2016-12-18] MEDS: Furosemide 40 MG/4 ML VIAL IVP SCH ×2 (08:37→21:07)
[2016-12-18] MEDS: Metoprolol XL (24 HR) Succ 50 MG TAB.ER.24H PO SCH (08:37)
[2016-12-18] MEDS: Insulin LISPRO 300 UNITS/3 ML VIAL SQ SCH ×4 (08:37→23:07)
[2016-12-18] MEDS: BuPROPion XL (24 HR) 150 MG TABLET PO SCH (08:37)
[2016-12-18] MEDS: Fluconazole 100 MG/50 ML 100 MG/50 ML BAG IVPB SCH (08:38)
[2016-12-18] MEDS: amLODIPine 5 MG TABLET PO SCH (08:38)
[2016-12-18] MEDS: Spironolactone 25 MG TABLET PO SCH (08:38)
[2016-12-18] MEDS: Miconazole 2% ointment 114 GM TUBE TP SCH ×2 (08:38→23:17)
[2016-12-18] MEDS: Nystatin Cream 15 GM TUBE TP SCH ×2 (08:40→23:19)
[2016-12-18] MEDS: Albumin 25% 25gram/100mL 25 GM/100 ML IV.SOLN IVPB SCH ×2 (09:36→23:05)
[2016-12-18] MEDS: Insulin DETEMIR 100 UNIT/ML X5UNITS SQ SCH ×2 (09:37→23:07)
--- NOTE | 2016-12-18 10:49 | Internal Med Progress Note ---
Date of Encounter: 12/18/16 Time of Encounter: 10:45 - Assessment and plan (1) Heart failure, diastolic, with acute decompensation Current Visit: Yes Status: Acute Assessment and plan: Patient laying flat for prolonged period of time. Significantly improved with bipap. He agrees to wear bipap tonight as he is non compliant with CPAP for SANDRA. Diuresed x1 and appreciate Nephrology recommendations on diuresis given his multiple comorbidities. (2) SHANE (acute kidney injury) Current Visit: Yes Status: Acute Assessment and plan: Non-compliant diabetic with complication of renal artery stenosis. Unsure of his true baseline prior to admission, as his prior renal functions were seen 2015. Nephrology is following, recommendations are appreciated. Will continue optimize recovery with medication selections as workup and treatment are ongoing. Discussed with resident team on indications for fluconazole therapy. There was extensive amount of fungal inflammation during his time of admission secondary to fungal infection. Now that these rashes have improved, we will discontinue IV fluconazole. . (3) Cellulitis of both feet Current Visit: Yes Status: Acute Assessment and plan: Continue Unasyn, Vanc/Zosyn DC'd. Sensitivities promote choice and avoid vancomycin and zosyn which requires renal dosing (4) Sepsis Current Visit: Yes Status: Acute Qualifiers: Sepsis type: sepsis due to unspecified organism Qualified Code(s): A41.9 - Sepsis, unspecified organism (5) Atrial fibrillation Current Visit: Yes Status: Chronic Qualifiers: Atrial fibrillation type: chronic Qualified Code(s): I48.2 - Chronic atrial fibrillation (6) Poorly controlled diabetes mellitus Current Visit: Yes Status: Chronic (7) HTN (hypertension) Current Visit: Yes Status: Chronic Qualifiers: Hypertension type: essential hypertension Qualified Code(s): I10 - Essential (primary) hypertension (8) DVT prophylaxis Current Visit: No Status: Acute (9) Unstable gait Current Visit: No Status: Acute (10) Morbid obesity Current Visit: Yes Status: Chronic (11) 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 underlying condition Current Visit: Yes Status: Acute Qualifiers: Laterality: right Non-pressure ulcer stage: limited to breakdown of skin Qualified Code(s): E08.621 - Diabetes mellitus due to underlying condition with foot ulcer; L97.411 - Non-pressure chronic ulcer of right heel and midfoot limited to breakdown of skin; L97.411 - Non-pressure chronic ulcer of right heel and midfoot limited to breakdown of skin; L97.411 - Non-pressure chronic ulcer of right heel and midfoot limited to breakdown of skin; L97.411 - Non- pressure chronic ulcer of right heel and midfoot limited to breakdown of skin (12) Fungal infection of the groin Current Visit: Yes Status: Acute (13) Renal artery stenosis Current Visit: Yes Status: Acute - Subjective Interval history: Patient had uneventful night. Had difficulty sleeping today. Addendum: Was paged around 13:00 as patient had acute onset of respiratory distress and O2 desaturation into 80s. Patient was laying flat, usually sleeping and awake in more elevated position. He appeared in respiratory distress, breath were sounds course, both legs wrapped and did not appear edematous. Above both leg wrapping was edema of legs and thighs. Abdomen looked increased in size from yesterday. He denied chest pain, palpitations, nausea/vomiting. An EKG showed no ST/T wave changes, troponin negative. A cxr ordered showed increased pulmonary vascularity. CBC and BMP were unchanged since 4 AM labs. ABG was within normal limits. The head of bed elevated, placed on bipap. Lasix 40 mg IV x1 given. His symptoms improved. - Constitutional Vitals: Temp Pulse Resp BP Pulse Ox 97.5 F L 77 18 158/93 94 12/18/16 07:23 12/18/16 07:23 12/18/16 07:23 12/18/16 07:23 12/18/16 07:23 General appearance: Present: cooperative, mild distress, A&O X 3, morbidly obese , answers questions appropriately - Respiratory Respiratory exam: Present: accessory muscle use, rales, respiratory distress, tachypnea. Absent: prolonged expiratory phase, wheezes - Cardiovascular Cardiovascular exam: Present: distant heart sounds, irregular rhythm. Absent: bradycardia, tachycardia - GI/Abdominal GI/Abdominal exam: Present: distended, normal bowel sounds, soft, no peritoneal signs. Absent: rebound, rigid, tenderness - Extremities Exam Extremities exam: Present: normal capillary refill, pedal edema, radial pulses palpable and symmetrical Internal Medicine: Result - Labs CBC & Chem 7: 12/18/16 13:45 12/18/16 13:45 Labs: Short CBC 12/18/16 Range/Units 04:06 WBC 6.5 (4.3-11.1) K/mcL Hgb 8.7 L (12.9-16.9) g/dL Hct 28.3 L (37.5-50.1) % Plt Count 249 (140-400) K/mcL Neutrophils # 4.8 (1.6-8.9) K/mcL BMP 12/18/16 04:06 Sodium 141 Potassium 4.5 Chloride 107 Carbon Dioxide 26 BUN 46 H Creatinine 2.13 H Glucose 210 H Calcium 9.0 - ABG Interpretation ABG results: PT/INR, D-dimer PT 13.0 Seconds (9.4-12.1) H 12/12/16 23:06 - VTE Documentation of Mechanical Device: Venous foot pump, device Consult Discharge Plan - Plan Referrals: NONE,PCP [Primary Care Provider] -
[2016-12-18] MEDS ORDERED: Ipratropium/Albuterol Neb 3 ML IH ONE (13:27)
[2016-12-18] MEDS ORDERED: Furosemide 40 MG/4 ML VIAL IVP ONE (13:38)
[2016-12-18 14:06] LABS: Basophils % 0.6 %; Eosinophils # 0.2 K/mcL (0.0-0.6); Eosinophils % 2.6 %; Hematocrit 28.5 % (37.5-50.1); Hemoglobin 8.8 g/dL (12.9-16.9); Immature Granulocytes % 0.3 % (0-4); Immature Platelets 2.3 % (1.1-6.1); Lymphocytes # 0.6 K/mcL (0.6-4.6); Lymphocytes % 8.7 %; Mean Corpuscular HGB Conc 30.9 g/dL (31.6-35.5); Mean Corpuscular Hemoglobin 25.8 pg (28.0-33.3); Mean Corpuscular Volume 83.6 fL (83.0-100.0); Mean Platelet Volume 10.2 fL (9.4-12.4); Monocytes # 0.6 K/mcL (0.0-1.3); Neutrophils # 5.5 K/mcL (1.6-8.9); Platelet Count 272 K/mcL (140-400); Red Blood Count 3.41 M/mcL (4.19-5.50); Red Cell Distribution Width 16.2 % (11.5-14.5); Segmented Neutrophils % 78.8 %
[2016-12-18 14:15] LABS: ABG Base Excess 0 mEq/L (-2 to 3); ABG HCO3 26 mEq/L (21-27); ABG Oxygen Saturation 97 % (95-98); ABG PCO2 43 mmHg (35-45); ABG PH 7.38 pH Units (7.32-7.45); ABG PO2 94 mmHg (85-104); ABG TCO2 27 mEq/L (20-26)
[2016-12-18 14:18] LABS: Magnesium 2.4 mg/dL (1.6-2.6)
[2016-12-18 14:19] LABS: Albumin 3.7 g/dL (3.5-5.0); Albumin/Globulin Ratio 1.1 (1.1-2.2); Bilirubin,Total 0.6 mg/dL (0.2-1.2); Calcium 9.1 mg/dL (8.6-10.8); Globulin 3.5 g/dL (2.4-3.5); Potassium 4.5 mEq/L (3.5-4.5); Total Protein 7.2 g/dL (6.0-8.3)
[2016-12-18] MEDS: *HR* Rivaroxaban 15 MG TABLET PO SCH (18:32)
--- NOTE | 2016-12-18 19:56 | Nephrology Progress Note ---
Date of Encounter: 12/18/16 Time of Encounter: 11:47 - Assessment and Plan (1) SHANE (acute kidney injury) Current Visit: Yes Status: Acute Renal function stable on current diuretic regimen. Will increase lasix secondary to significant volume overload status. Monitor for renal stability. (2) CHF (congestive heart failure) Current Visit: Yes Status: Acute See SHANE. (3) Lambda light chain disease Current Visit: Yes Status: Acute Outpatient follow-up. (4) Uncontrolled diabetes mellitus Current Visit: Yes Status: Acute Per primary team. Qualifiers: Diabetes mellitus type: type 2 Diabetes mellitus complication status: with unspecified complications Diabetes mellitus continuous churn buttermaker insulin use: unspecified fpc insulin use status Qualified Code(s): E11.8 - Type 2 diabetes mellitus with unspecified complications; E11.65 - Type 2 diabetes mellitus with hyperglycemia; E11.65 - Type 2 diabetes mellitus with hyperglycemia; E11.65 - Type 2 diabetes mellitus with hyperglycemia; E11.65 - Type 2 diabetes mellitus with hyperglycemia Subjective Principal diagnosis: SHANE Interval history: Patient seen. He is lying in bed. alert. Objective - Vital Signs Vital signs: Vital Signs Temp Pulse Resp BP Pulse Ox 12/18/16 18:04 97.6 F 74 31 139/77 94 12/18/16 17:42 20 96 12/18/16 14:10 17 98 12/18/16 13:30 25 150/78 94 12/18/16 13:01 98.2 F 78 20 152/81 88 12/18/16 11:38 97.7 F 70 18 137/77 90 12/18/16 07:23 97.5 F L 77 18 158/93 94 12/17/16 23:19 97.7 F 80 18 125/65 91 Intake and Output 12/18/16 12/18/16 12/18/16 07:59 15:59 23:59 Intake Total 500 / 500 710 / 710 Output Total 1200 / 1200 600 / 600 Balance -700 / -700 110 / 110 Intake: IV Fluids 300 / 300 200 / 200 Flexbumin 25 gm In 100 ml @ 60 100 / 100 100 / 100 mls/hr IVPB Q12H [facility] Rx#: [id number] Unasyn 1,500 mg In 0.9 % Sodium 200 / 200 100 / 100 Chloride (Mini-Bag +) 100 ML @ 200 mls/hr IVPB Q6HR [facility] Rx#: [id number] Oral 200 / 200 510 / 510 Output: Catheter 1200 / 1200 600 / 600 Other: Meal Breakfast Percent of Meal Consumed 100% Stool Size Moderate Stool Consistency formed Stool Characteristics Normal for Patient Stool Color Brown # Bowel Movements 1 Blood Glucose* 204 267 244 - General Appearance General appearance: Present: well-developed, well-nourished, obese EENT: Present: ATNC Additional Comments: Respirations are unlabored. Cardiology: Present: edema, regular rate Gastrointestinal: Present: obese Integumentary: Present: warm and dry Neurologic: Present: alert and oriented x3 Psychiatric: Present: mood/affect appropriate - Lab 12/18/16 13:45 12/18/16 13:45 Most recent lab results ABG pH 7.38 pH Units (7.32-7.45) 12/18/16 14:12 ABG pCO2 43 mmHg (35-45) 12/18/16 14:12 ABG pO2 94 mmHg (85-104) 12/18/16 14:12 ABG HCO3 26 mEq/L (21-27) 12/18/16 14:12 ABG O2 Saturation 97 % (95-98) 12/18/16 14:12 Calcium 9.1 mg/dL (8.6-10.8) 12/18/16 13:45 Phosphorus 4.0 mg/dL (2.3-4.7) 12/18/16 13:45 Magnesium 2.4 mg/dL (1.6-2.6) 12/18/16 13:45 Urine Creatinine 89 mg/dL 12/13/16 17:50 Urine Total Protein 228 mg/dL (1-14) H 12/13/16 17:50 - VTE Documentation of Mechanical Device: Venous foot pump, device Consult Discharge Plan - Plan Referrals: NONE,PCP [Primary Care Provider] -
[2016-12-19] MEDS: Ampicillin/Sulbactam 1,500 MG in 0.9 % Sodium Chloride Mini Bag 100 ML IVPB SCH ×4 (00:15→16:58)
[2016-12-19 03:51] LABS: Basophils % 0.7 %; Eosinophils # 0.2 K/mcL (0.0-0.6); Eosinophils % 3.4 %; Hematocrit 26.9 % (37.5-50.1); Hemoglobin 8.1 g/dL (12.9-16.9); Immature Granulocytes % 0.3 % (0-4); Lymphocytes # 0.8 K/mcL (0.6-4.6); Lymphocytes % 13.8 %; Mean Corpuscular HGB Conc 30.1 g/dL (31.6-35.5); Mean Corpuscular Hemoglobin 25.7 pg (28.0-33.3); Mean Corpuscular Volume 85.4 fL (83.0-100.0); Mean Platelet Volume 9.9 fL (9.4-12.4); Monocytes # 0.6 K/mcL (0.0-1.3); Monocytes % 10.9 %; Neutrophils # 4.2 K/mcL (1.6-8.9); Platelet Count 239 K/mcL (140-400); Red Blood Count 3.15 M/mcL (4.19-5.50); Red Cell Distribution Width 16.1 % (11.5-14.5); Segmented Neutrophils % 70.9 %
[2016-12-19 04:42] LABS: Calcium 8.9 mg/dL (8.6-10.8); Potassium 4.4 mEq/L (3.5-4.5)
[2016-12-19] MEDS: Famotidine 20 MG/2 ML VIAL IVP SCH (05:13)
[2016-12-19] MEDS: Insulin LISPRO 300 UNITS/3 ML VIAL SQ SCH ×4 (07:36→21:15)
[2016-12-19] MEDS: Spironolactone 25 MG TABLET PO SCH (07:37)
[2016-12-19] MEDS: Metoprolol XL (24 HR) Succ 50 MG TAB.ER.24H PO SCH (07:37)
[2016-12-19] MEDS: Furosemide 40 MG/4 ML VIAL IVP SCH ×2 (07:37→21:13)
[2016-12-19] MEDS: BuPROPion XL (24 HR) 150 MG TABLET PO SCH (07:37)
[2016-12-19] MEDS: amLODIPine 5 MG TABLET PO SCH (07:38)
[2016-12-19] MEDS: Nystatin Cream 15 GM TUBE TP SCH ×2 (07:41→21:09)
[2016-12-19] MEDS ORDERED: Insulin DETEMIR 100 UNIT/ML X5UNITS SQ ONE ×2 (07:43→09:00)
[2016-12-19] MEDS ORDERED: Insulin DETEMIR 100 UNIT/ML X5UNITS SQ SCH (09:00)
[2016-12-19] MEDS: Albumin 25% 25gram/100mL 25 GM/100 ML IV.SOLN IVPB SCH ×2 (11:03→22:25)
--- NOTE | 2016-12-19 13:10 | Nephrology Progress Note ---
Date of Encounter: 12/19/16 Time of Encounter: 13:08 - Assessment and Plan (1) SHANE (acute kidney injury) Current Visit: Yes Status: Acute Renal function stable on current diuretic regimen. Lasix increased secondary to significant volume overload status. Monitor for renal stability. (2) CHF (congestive heart failure) Current Visit: Yes Status: Acute See SHANE. Patient received extra lasix secondary to dyspnea. He has less dyspnea today with diuresis and use of his CPAP overnight. (3) Lambda light chain disease Current Visit: Yes Status: Acute Outpatient follow-up. (4) Uncontrolled diabetes mellitus Current Visit: Yes Status: Acute Per primary team. Qualifiers: Diabetes mellitus type: type 2 Diabetes mellitus complication status: with unspecified complications Diabetes mellitus alf insulin use: unspecified roasterman insulin use status Qualified Code(s): E11.8 - Type 2 diabetes mellitus with unspecified complications; E11.65 - Type 2 diabetes mellitus with hyperglycemia; E11.65 - Type 2 diabetes mellitus with hyperglycemia; E11.65 - Type 2 diabetes mellitus with hyperglycemia; E11.65 - Type 2 diabetes mellitus with hyperglycemia Subjective Principal diagnosis: SHANE Interval history: Patient seen. He sitting in a chair. [place] is in place. is at bedside an I had a conversation with her. Also discussed plan of care with primary team. Objective - Vital Signs Vital signs: Vital Signs Temp Pulse Resp BP Pulse Ox 12/19/16 11:45 98.4 F 78 18 159/91 91 12/19/16 07:20 98.7 F 66 18 156/84 95 12/19/16 03:55 98.0 F 68 18 144/78 95 12/18/16 23:23 98.5 F 75 16 106/80 98 12/18/16 22:52 20 96 12/18/16 18:04 97.6 F 74 31 139/77 94 12/18/16 17:42 20 96 12/18/16 14:10 17 98 12/18/16 13:30 25 150/78 94 Intake and Output 12/18/16 12/19/16 12/19/16 23:59 07:59 15:59 Intake Total 300 / 300 300 / 300 Output Total 550 / 550 1450 / 1450 700 / 700 Balance -250 / -250 -1150 / -1150 -700 / -700 Intake: IV Fluids 100 / 100 300 / 300 Flexbumin 25 gm In 100 ml @ 60 100 / 100 mls/hr IVPB Q12H [facility] Rx#: [id number] Unasyn 1,500 mg In 0.9 % Sodium 100 / 100 200 / 200 Chloride (Mini-Bag +) 100 ML @ 200 mls/hr IVPB Q6HR [facility] Rx#: [id number] Oral 200 / 200 Output: Urine 550 / 550 550 / 550 Catheter 900 / 900 700 / 700 Other: Meal HS SNACK-DIET JELLO Stool Size Moderate Stool Consistency formed Stool Characteristics Normal for Patient Stool Color Brown # Bowel Movements 1 Weight 151 kg Blood Glucose* 240 167 217 - General Appearance General appearance: Present: well-developed, well-nourished, obese EENT: Present: ATNC Neck: Present: supple Additional Comments: respirations are unlabored. Cardiology: Present: edema (2-3+ edema in lower extremities. ) Gastrointestinal: Present: obese Integumentary: Present: warm and dry Neurologic: Present: alert and oriented x3 Musculoskeletal: Present: no cyanosis Additional Comments: Seems depressed. - Lab 12/19/16 03:30 12/19/16 03:30 Most recent lab results ABG pH 7.38 pH Units (7.32-7.45) 12/18/16 14:12 ABG pCO2 43 mmHg (35-45) 12/18/16 14:12 ABG pO2 94 mmHg (85-104) 12/18/16 14:12 ABG HCO3 26 mEq/L (21-27) 12/18/16 14:12 ABG O2 Saturation 97 % (95-98) 12/18/16 14:12 Calcium 8.9 mg/dL (8.6-10.8) 12/19/16 03:30 Phosphorus 4.0 mg/dL (2.3-4.7) 12/18/16 13:45 Magnesium 2.4 mg/dL (1.6-2.6) 12/18/16 13:45 Urine Creatinine 89 mg/dL 12/13/16 17:50 Urine Total Protein 228 mg/dL (1-14) H 12/13/16 17:50 - VTE Documentation of Mechanical Device: Venous foot pump, device Consult Discharge Plan - Plan Referrals: NONE,PCP [Primary Care Provider] -
[2016-12-19] MEDS ORDERED: hydrALAZINE 10 MG TABLET PO ONE (16:29)
[2016-12-19] MEDS: *HR* Rivaroxaban 15 MG TABLET PO SCH (16:57)
--- NOTE | 2016-12-19 17:28 | Internal Med Progress Note ---
Date of Encounter: 12/19/16 Time of Encounter: 17:26 - Assessment and plan (1) Heart failure, diastolic, with acute decompensation Current Visit: Yes Status: Acute Assessment and plan: Patient agreeing to wear bipap tonight, which may help with fluid overload. (2) SHANE (acute kidney injury) Current Visit: Yes Status: Acute Assessment and plan: Discussed case with Dr. Mcdowell, Lasix will be increased and he has made good urine output with this. (3) Cellulitis of both feet Current Visit: Yes Status: Acute (4) Sepsis Current Visit: Yes Status: Acute Qualifiers: Sepsis type: sepsis due to unspecified organism Qualified Code(s): A41.9 - Sepsis, unspecified organism (5) Atrial fibrillation Current Visit: Yes Status: Chronic Qualifiers: Atrial fibrillation type: chronic Qualified Code(s): I48.2 - Chronic atrial fibrillation (6) Poorly controlled diabetes mellitus Current Visit: Yes Status: Chronic (7) HTN (hypertension) Current Visit: Yes Status: Chronic Qualifiers: Hypertension type: essential hypertension Qualified Code(s): I10 - Essential (primary) hypertension (8) DVT prophylaxis Current Visit: No Status: Acute (9) Unstable gait Current Visit: No Status: Acute (10) Morbid obesity Current Visit: Yes Status: Chronic (11) 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 underlying condition Current Visit: Yes Status: Acute Qualifiers: Laterality: right Non-pressure ulcer stage: limited to breakdown of skin Qualified Code(s): E08.621 - Diabetes mellitus due to underlying condition with foot ulcer; L97.411 - Non-pressure chronic ulcer of right heel and midfoot limited to breakdown of skin; L97.411 - Non-pressure chronic ulcer of right heel and midfoot limited to breakdown of skin; L97.411 - Non-pressure chronic ulcer of right heel and midfoot limited to breakdown of skin; L97.411 - Non- pressure chronic ulcer of right heel and midfoot limited to breakdown of skin (12) Fungal infection of the groin Current Visit: Yes Status: Acute (13) Renal artery stenosis Current Visit: Yes Status: Acute - Subjective Interval history: present in room. States that patient is non-compliant for several years. Does not adhere to any medication regimen. Patient wore bipap overnight but nursing reports that several times he removed the mask. He is having irritation from [place] catheter area. Denies fevers/chills. Currently legs are wrapped. - Constitutional Vitals: Temp Pulse Resp BP Pulse Ox 98.1 F 75 18 186/100 96 12/19/16 16:12 12/19/16 16:12 12/19/16 16:12 12/19/16 16:12 12/19/16 16:12 Exam: Gen: obese, no acute respiratory distress Neck: No jvd cvs: irreg rhythm, rate normal Lungs: course breath sounds throughout Abdomen: soft, distended with edema, normoactive bowel sounds Ext:Lower legs and calfs are wrapped, above knees are edema up to scrotum Internal Medicine: Result - Labs CBC & Chem 7: 12/19/16 03:30 12/19/16 03:30 Labs: Short CBC 12/19/16 Range/Units 03:30 WBC 5.9 (4.3-11.1) K/mcL Hgb 8.1 L (12.9-16.9) g/dL Hct 26.9 L (37.5-50.1) % Plt Count 239 (140-400) K/mcL Neutrophils # 4.2 (1.6-8.9) K/mcL BMP 12/19/16 03:30 Sodium 142 Potassium 4.4 Chloride 107 Carbon Dioxide 24 BUN 48 H Creatinine 2.20 H Glucose 184 H Calcium 8.9 - ABG Interpretation ABG results: ABG ABG pH 7.38 pH Units (7.32-7.45) 12/18/16 14:12 ABG pCO2 43 mmHg (35-45) 12/18/16 14:12 ABG pO2 94 mmHg (85-104) 12/18/16 14:12 ABG O2 Saturation 97 % (95-98) 12/18/16 14:12 PT/INR, D-dimer PT 13.0 Seconds (9.4-12.1) H 12/12/16 23:06 - VTE Documentation of Mechanical Device: Venous foot pump, device Consult Discharge Plan - Plan Referrals: NONE,PCP [Primary Care Provider] -
[2016-12-19] MEDS: Insulin DETEMIR 100 UNIT/ML X5UNITS SQ SCH (21:14)
[2016-12-19] MEDS: hydrALAZINE 10 MG TABLET PO SCH (21:15)
[2016-12-19] MEDS: Miconazole 2% ointment 114 GM TUBE TP SCH (21:16)
[2016-12-20] MEDS: Ampicillin/Sulbactam 1,500 MG in 0.9 % Sodium Chloride Mini Bag 100 ML IVPB SCH ×3 (01:02→11:25)
[2016-12-20] MEDS: hydrALAZINE 10 MG TABLET PO SCH ×4 (01:02→17:56)
[2016-12-20 05:00] LABS: Basophils % 0.5 %; Eosinophils # 0.2 K/mcL (0.0-0.6); Eosinophils % 3.3 %; Hematocrit 26.2 % (37.5-50.1); Hemoglobin 7.9 g/dL (12.9-16.9); Immature Granulocytes % 0.3 % (0-4); Immature Platelets 2.4 % (1.1-6.1); Lymphocytes # 0.7 K/mcL (0.6-4.6); Lymphocytes % 11.8 %; Mean Corpuscular HGB Conc 30.2 g/dL (31.6-35.5); Mean Corpuscular Hemoglobin 25.4 pg (28.0-33.3); Mean Corpuscular Volume 84.2 fL (83.0-100.0); Mean Platelet Volume 10.2 fL (9.4-12.4); Monocytes # 0.6 K/mcL (0.0-1.3); Monocytes % 10.3 %; Neutrophils # 4.5 K/mcL (1.6-8.9); Platelet Count 247 K/mcL (140-400); Red Blood Count 3.11 M/mcL (4.19-5.50); Red Cell Distribution Width 16.3 % (11.5-14.5); Segmented Neutrophils % 73.8 %
[2016-12-20] MEDS: Famotidine 20 MG/2 ML VIAL IVP SCH (05:54)
[2016-12-20 06:11] LABS: Platelet Estimate Normal (Normal)
[2016-12-20] MEDS: Insulin LISPRO 300 UNITS/3 ML VIAL SQ SCH ×4 (08:48→21:38)
[2016-12-20] MEDS: Furosemide 40 MG/4 ML VIAL IVP SCH ×2 (08:50→20:10)
[2016-12-20] MEDS: Spironolactone 25 MG TABLET PO SCH (08:53)
[2016-12-20] MEDS: Metoprolol XL (24 HR) Succ 50 MG TAB.ER.24H PO SCH (08:53)
[2016-12-20] MEDS: amLODIPine 5 MG TABLET PO SCH (08:53)
[2016-12-20] MEDS: BuPROPion XL (24 HR) 150 MG TABLET PO SCH (08:53)
[2016-12-20] MEDS: Nystatin Cream 15 GM TUBE TP SCH ×2 (08:56→20:11)
[2016-12-20] MEDS: Insulin DETEMIR 100 UNIT/ML X5UNITS SQ SCH ×2 (09:01→21:38)
--- NOTE | 2016-12-20 10:25 | Nephrology Progress Note ---
Date of Encounter: 12/20/16 Time of Encounter: 10:25 - Assessment and Plan (1) SHANE (acute kidney injury) Current Visit: Yes Status: Acute baseline 1.18 of note, patient does have history of renal artery stenosis. last renal artery duplex from 08/05/15 showed stenosis of the right distal renal artery that was greater than 60%, left renal artery was hemodynamically well maintained. repeat renal artery imaging inconclusive due to bowel gas pattern. likely multifactorial secondary to sepsis, possible worsening renal artery stenosis. will also consider possible cardiorenal syndrome, glomerulonephritis retroperitoneal ultrasound showed no evidence of hydronephrosis. urine protein/Cr ratio 2.56-subnephrotic. urine total protein: 228 C3, C4 levels unremarkable. MALLORY negative. immunoelecrophesis unremarkable. plan: continue renoprotective strategy, avoid nephrotoxins as much as possible. strict I/O, goal is to keep him net getagtive 2-3L per day. no urgent indication for dialysis at this time. no brennan catheter needed from nephrology standpoint. increased lasix to IV 60mg BID, discontinued albumin consult to nutrition to discuss lifestyle modifications and dietary changes. agree with PT/OT and SNF at discharge. (2) Volume overload Current Visit: Yes Status: Acute as above Qualifiers: Hypervolemia type: unspecified Qualified Code(s): E87.70 - Fluid overload, unspecified (3) Diastolic CHF Current Visit: Yes Status: Acute plan as above Qualifiers: Congestive heart failure chronicity: chronic Qualified Code(s): I50.32 - Chronic diastolic (congestive) heart failure (4) Renal artery stenosis Current Visit: Yes Status: Acute history of renal artery stenosis. repeat renal artery imaging ordered, but study was inadequate due to bowel gas obstruction of the aorta and renals. recommend follow up outpatient. 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 (7) Anemia Current Visit: Yes Status: Chronic Hg today 7.9, baseline around 13 etiolgy unclear at this time. possibilities include GI bleed secondary to xarelto, etc. likely a component of iron deficiency anemia. Plan: stool guiac, B12, Folate pending. started iron supplementation with ferrous sulfate will continue to monitor Hg. Qualifiers: Anemia type: due to chronic kidney disease Chronic kidney disease stage: stage 3 (moderate) Qualified Code(s): N18.3 - Chronic kidney disease, stage 3 (moderate); D63.1 - Anemia in chronic kidney disease; D63.1 - Anemia in chronic kidney disease (8) Sepsis Current Visit: Yes Status: Resolved resolved. per primary and podiatry Qualifiers: Sepsis type: sepsis due to unspecified organism Qualified Code(s): A41.9 - Sepsis, unspecified organism (9) Uncontrolled diabetes mellitus Current Visit: Yes Status: Acute type 2 uncontrolled DM with glucosuria, proteinura. patient is on vasotec at home. Plan: encouraged lifestyle modifications continue insulin basal and sliding scale per primary monitor blood sugars Qualifiers: Diabetes mellitus type: type 2 Diabetes mellitus complication status: with unspecified complications Diabetes mellitus terminal operations supervisor insulin use: unspecified correction insulin use status Qualified Code(s): E11.8 - Type 2 diabetes mellitus with unspecified complications; E11.65 - Type 2 diabetes mellitus with hyperglycemia; E11.65 - Type 2 diabetes mellitus with hyperglycemia; E11.65 - Type 2 diabetes mellitus with hyperglycemia; E11.65 - Type 2 diabetes mellitus with hyperglycemia (10) DVT prophylaxis Current Visit: No Status: Acute on Xarelto Subjective Principal diagnosis: SHANE Interval history: 66 year old male evaluated at bedside. he denies nausea, vomiting, diarrhea, fever, chest pain, shortness of breath. he does admit to having some chills. Objective - Vital Signs Vital signs: Vital Signs Temp Pulse Resp BP Pulse Ox 12/20/16 08:00 97.8 F 82 17 132/72 92 12/20/16 03:31 99.5 F 71 18 135/73 92 12/20/16 00:42 97.6 F 76 18 141/63 92 12/19/16 22:54 18 98 12/19/16 21:06 148/96 12/19/16 19:44 97.7 F 68 18 170/103 98 12/19/16 18:52 169/89 12/19/16 16:12 98.1 F 75 18 186/100 96 12/19/16 11:45 98.4 F 78 18 159/91 91 Intake and Output 12/19/16 12/20/16 12/20/16 23:59 07:59 15:59 Intake Total 445 / 445 320 / 320 Output Total 1150 / 1150 1100 / 1100 Balance -705 / -705 -780 / -780 Intake: IV Fluids 300 / 300 200 / 200 Flexbumin 25 gm In 100 ml @ 60 100 / 100 mls/hr IVPB Q12H [facility] Rx#: [id number] Unasyn 1,500 mg In 0.9 % Sodium 200 / 200 200 / 200 Chloride (Mini-Bag +) 100 ML @ 200 mls/hr IVPB Q6HR [facility] Rx#: [id number] Oral 145 / 145 120 / 120 Output: Catheter 1150 / 1150 1100 / 1100 Other: Meal Dinner Percent of Meal Consumed 50% Weight 150.8 kg Blood Glucose* 215 108 Patient Weight 12/20/16 23:59 Weight 150.8 kg - General Appearance General appearance: Present: well-developed, well-nourished, appears started age , obese, fatigue Neck: Present: no JVD Respiratory: Present: clear Cardiology: Present: no murmurs, no rub, no gallops, regular rate, regular rhythm, normal S1, normal S2 Additional Comments: +2 pitting edema on bilateral lower extremities. bilateral lower extremities are wrapped. Gastrointestinal: Present: hypoactive bowel sounds Additional Comments: distended Additional Comments: bilateral lower extremity cellulitis. Neurologic: Present: no focal deficit, alert and oriented x3 Musculoskeletal: Present: no cyanosis, no clubbing - Lab 12/20/16 04:30 12/20/16 04:30 Most recent lab results ABG pH 7.38 pH Units (7.32-7.45) 12/18/16 14:12 ABG pCO2 43 mmHg (35-45) 12/18/16 14:12 ABG pO2 94 mmHg (85-104) 12/18/16 14:12 ABG HCO3 26 mEq/L (21-27) 12/18/16 14:12 ABG O2 Saturation 97 % (95-98) 12/18/16 14:12 Calcium 9.0 mg/dL (8.6-10.8) 12/20/16 04:30 Phosphorus 4.0 mg/dL (2.3-4.7) 12/18/16 13:45 Magnesium 2.4 mg/dL (1.6-2.6) 12/18/16 13:45 Urine Creatinine 89 mg/dL 12/13/16 17:50 Urine Total Protein 228 mg/dL (1-14) H 12/13/16 17:50 - VTE Documentation of Mechanical Device: Venous foot pump, device Consult Discharge Plan - Plan Referrals: NONE,PCP [Primary Care Provider] -
[2016-12-20] MEDS: levoFLOXacin 500 MG TABLET PO SCH (15:01)
[2016-12-20] MEDS: Amoxicillin 500 MG CAPSULE PO SCH ×2 (15:01→20:10)
--- NOTE | 2016-12-20 17:01 | Electrocardiograph Report ---
[address] [place] [address] Test Date: 2016-12-18 Pat Name: Michael Ramirez Department: 114 Room: 2A22 Gender: M Transportation Services Representative: : 1950 Requested By: Dee Bejarano Order Number: [id number] Reading MD: Pearl Meier Measurements Intervals [place] Rate: 71 P: SD: 0 QRS: 36 QRSD: 101 T: 29 QT: 392 QTc: 414 Interpretive Statements ATRIAL FIBRILLATION LOW QRS VOLTAGE POSSIBLE ANTERIOR MYOCARDIAL INFARCTION, PROBABLY OLD Electronically Signed On 12-20-2016 16:59:48 EDT by Pearl Meier
[2016-12-20] MEDS: *HR* Rivaroxaban 15 MG TABLET PO SCH (17:56)
[2016-12-20] MEDS: Miconazole 2% ointment 114 GM TUBE TP SCH (20:12)
[2016-12-21] MEDS: hydrALAZINE 10 MG TABLET PO SCH ×4 (00:17→17:11)
--- NOTE | 2016-12-21 00:48 | Internal Med Progress Note ---
Date of Encounter: 12/20/16 Time of Encounter: 09:46 - Assessment and plan (1) Heart failure, diastolic, with acute decompensation Current Visit: Yes Status: Acute Assessment and plan: Cardiorenal syndrome with issues of non-compliance. For past two days he states he's willing to wear bipap. Nursing reports he takes mask off often during sleep. (2) SHANE (acute kidney injury) Current Visit: Yes Status: Acute Assessment and plan: Managed by nephrology. Has been diuresing significantly with lasix. Medications reviewed today with pharmacist today to avoid nephrotoxicity. (3) Cellulitis of both feet Current Visit: Yes Status: Acute Assessment and plan: Based on sensitivities, continue Unasyn. Vanc/Zosyn DC'd. (4) Sepsis Current Visit: Yes Status: Resolved Assessment and plan: Secondary to bilateral lower extremity cellulitis. 12/12: Wound culture positive for Group B Strep and Gram Neg rods. Will continue coverage for both and await sensitivities. Monitor vital signs closely. Lactic acidosis currently improved. 12/15: Sensitivities resulted. Based on results, will switch to Unasyn and d/c vanc/zosyn. Qualifiers: Sepsis type: sepsis due to unspecified organism Qualified Code(s): A41.9 - Sepsis, unspecified organism (5) Atrial fibrillation Current Visit: Yes Status: Chronic Assessment and plan: Currently rate controlled. Continue beta wade. On long-term anticoagulation with Xarelto. Qualifiers: Atrial fibrillation type: chronic Qualified Code(s): I48.2 - Chronic atrial fibrillation (6) Poorly controlled diabetes mellitus Current Visit: Yes Status: Chronic (7) HTN (hypertension) Current Visit: Yes Status: Chronic Qualifiers: Hypertension type: essential hypertension Qualified Code(s): I10 - Essential (primary) hypertension (8) DVT prophylaxis Current Visit: No Status: Acute (9) Unstable gait Current Visit: No Status: Acute (10) Morbid obesity Current Visit: Yes Status: Chronic (11) 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 underlying condition Current Visit: Yes Status: Acute Qualifiers: Laterality: right Non-pressure ulcer stage: limited to breakdown of skin Qualified Code(s): E08.621 - Diabetes mellitus due to underlying condition with foot ulcer; L97.411 - Non-pressure chronic ulcer of right heel and midfoot limited to breakdown of skin; L97.411 - Non-pressure chronic ulcer of right heel and midfoot limited to breakdown of skin; L97.411 - Non-pressure chronic ulcer of right heel and midfoot limited to breakdown of skin; L97.411 - Non- pressure chronic ulcer of right heel and midfoot limited to breakdown of skin (12) Fungal infection of the groin Current Visit: Yes Status: Acute (13) Renal artery stenosis Current Visit: Yes Status: Acute - Subjective Interval history: Has no complaints. States breathing is at baseline though he does seem labored. - Constitutional Vitals: Temp Pulse Resp BP Pulse Ox 97.5 F L 80 21 135/84 94 12/21/16 00:12 12/21/16 00:12 12/20/16 22:20 12/21/16 00:12 12/20/16 22:20 General appearance: Present: A&O X 3, morbidly obese, answers questions appropriately Exam: CVS: RRR, heart sounds muffled Lungs: fair air exchange, fine rales at bases, no wheezing Abd: edematous, distended, soft, non-rigid, no guarding, normoactive bowel sounds : Penis/scrotal edema without rash ext: pitting edema extends up to thighs Internal Medicine: Result - Labs CBC & Chem 7: 12/20/16 04:30 12/20/16 04:30 Labs: Short CBC 12/20/16 Range/Units 04:30 WBC 6.1 (4.3-11.1) K/mcL Hgb 7.9 L (12.9-16.9) g/dL Hct 26.2 L (37.5-50.1) % Plt Count 247 (140-400) K/mcL Neutrophils # 4.5 (1.6-8.9) K/mcL BMP 12/20/16 04:30 Sodium 145 Potassium 4.0 Chloride 109 Carbon Dioxide 26 BUN 54 H Creatinine 2.11 H Glucose 102 H Calcium 9.0 - ABG Interpretation ABG results: ABG ABG pH 7.38 pH Units (7.32-7.45) 12/18/16 14:12 ABG pCO2 43 mmHg (35-45) 12/18/16 14:12 ABG pO2 94 mmHg (85-104) 12/18/16 14:12 ABG O2 Saturation 97 % (95-98) 12/18/16 14:12 PT/INR, D-dimer PT 13.0 Seconds (9.4-12.1) H 12/12/16 23:06 - VTE Documentation of Mechanical Device: Venous foot pump, device Consult Discharge Plan - Plan Referrals: NONE,PCP [Primary Care Provider] -
[2016-12-21 02:59] LABS: Basophils % 0.8 %; Eosinophils # 0.2 K/mcL (0.0-0.6); Hematocrit 26.6 % (37.5-50.1); Immature Granulocytes % 0.4 % (0-4); Lymphocytes # 0.8 K/mcL (0.6-4.6); Lymphocytes % 15.1 %; Mean Corpuscular HGB Conc 30.1 g/dL (31.6-35.5); Mean Corpuscular Hemoglobin 25.6 pg (28.0-33.3); Mean Corpuscular Volume 85.3 fL (83.0-100.0); Mean Platelet Volume 9.9 fL (9.4-12.4); Monocytes # 0.6 K/mcL (0.0-1.3); Monocytes % 11.1 %; Neutrophils # 3.6 K/mcL (1.6-8.9); Platelet Count 227 K/mcL (140-400); Red Blood Count 3.12 M/mcL (4.19-5.50); Red Cell Distribution Width 16.2 % (11.5-14.5); Segmented Neutrophils % 68.6 %
[2016-12-21 03:10] LABS: Potassium 4.1 mEq/L (3.5-4.5)
[2016-12-21 04:22] LABS: Folate 14.2 ng/mL (7.0-31.4)
[2016-12-21] MEDS: Insulin LISPRO 300 UNITS/3 ML VIAL SQ SCH ×6 (08:59→22:43)
[2016-12-21] MEDS: Spironolactone 25 MG TABLET PO SCH (09:02)
--- NOTE | 2016-12-21 09:03 | Internal Med Progress Note ---
Date of Encounter: 12/21/16 Time of Encounter: 10:08 - Assessment and plan (1) Atrial fibrillation Current Visit: Yes Status: Chronic Assessment and plan: Currently rate controlled. Continue beta wade. On long-term anticoagulation with Xarelto, continue same Qualifiers: Atrial fibrillation type: chronic Qualified Code(s): I48.2 - Chronic atrial fibrillation (2) Poorly controlled diabetes mellitus Current Visit: Yes Status: Chronic Assessment and plan: Hemoglobin A1c noted to be 11.2%. FS mostly controlled in the past 24 hrs Continue basal, prandial insulin, adjust with FS (3) HTN (hypertension) Current Visit: Yes Status: Chronic Assessment and plan: Controlled, continue current meds Qualifiers: Hypertension type: essential hypertension Qualified Code(s): I10 - Essential (primary) hypertension (4) Non compliance w medication regimen Current Visit: Yes Status: Chronic Assessment and plan: Education provided (5) Morbid obesity Current Visit: Yes Status: Chronic Assessment and plan: Lifestyle modification (6) Cellulitis of both feet Current Visit: Yes Status: Acute Assessment and plan: Based on sensitivities, Wound culture with strep agalacitae in both feet as well as providentia in Lt foot wound IV antibiotics have been discontinued Continue amoxicillin -Day 2, Levaquiin Day 2 Total of 7 days so far of antibiotics (7) SHANE (acute kidney injury) Current Visit: Yes Status: Acute Assessment and plan: Improving slowly Continue to monitor Continue lasix Strict I/O D/C brennan renal is following, appreciate input (8) CHF (congestive heart failure) Current Visit: Yes Status: Acute Assessment and plan: Patient does have long-standing peripheral edema, however not hypoxic or short of breath at this time. Continue IV Lasix and beta wade. Negative fluid balance, continue to monitor Continue telemetry monitoring. Fluid restriction, strict input/output monitoring. ECHo with EF 55%, indeterminate LVDD, no pulm HTN Qualifiers: Congestive heart failure type: diastolic Congestive heart failure chronicity: acute on chronic Qualified Code(s): I50.33 - Acute on chronic diastolic (congestive) heart failure (9) Sepsis Current Visit: Yes Status: Resolved Assessment and plan: Resolved Secondary to bilateral lower extremity cellulitis. 12/12: Wound culture positive for Group B Strep and Gram Neg rods. Will continue coverage for both and await sensitivities. Monitor vital signs closely. Lactic acidosis currently improved. 12/15: Sensitivities resulted. Continue amoxicillin Qualifiers: Sepsis type: sepsis due to unspecified organism Qualified Code(s): A41.9 - Sepsis, unspecified organism (10) UTI (urinary tract infection) Current Visit: Yes Status: Acute Assessment and plan: Urinalysis suggestive of infection on admission Patient has been on Brennan No urine culture per chart Will not repeat as patient has had multiple antibiotics Will d/c Brennan Will send urine work up if symptomatic Qualifiers: Urinary tract infection type: acute cystitis Hematuria presence: with hematuria Qualified Code(s): N30.01 - Acute cystitis with hematuria (11) Anemia Current Visit: Yes Status: Chronic Assessment and plan: HB stable Possibly ACD, Vit B12 and folate WNL Send iron profile and FOBT today Continue to monitor Qualifiers: Anemia type: due to chronic kidney disease Chronic kidney disease stage: stage 3 (moderate) Qualified Code(s): N18.3 - Chronic kidney disease, stage 3 (moderate); D63.1 - Anemia in chronic kidney disease; D63.1 - Anemia in chronic kidney disease (12) Renal artery stenosis Current Visit: Yes Status: Chronic Assessment and plan: Chronic, repeat imaging not conclusive Renal is following, no surgical intervention is planned (13) Diabetic foot ulcer Current Visit: Yes Status: Chronic Assessment and plan: Noted to have chronic right heel ulcer. infected, management as in podiatry recommendations, continue wound dressing and antibiotics Qualifiers: Diabetic foot ulcer location: heel Diabetes mellitus type: type 2 Non- pressure ulcer stage: with other severity Qualified Code(s): E11.621 - Type 2 diabetes mellitus with foot ulcer; L97.408 - Non-pressure chronic ulcer of unspecified heel and midfoot with other specified severity; L97.408 - Non- pressure chronic ulcer of unspecified heel and midfoot with other specified severity - Subjective Interval history: 66 M with CHF, Afib, SANDRA, HTN, known non-compliance, light chain nephropathy, TRUDY he is being managed for CHFE, SHANE, Sepsis secondary to cellulitis I/O -4+L On Brennan States no new complains - Constitutional Vitals: Temp Pulse Resp BP Pulse Ox 97.9 F 74 18 145/79 92 12/21/16 06:50 12/21/16 06:50 12/21/16 06:50 12/21/16 06:50 12/21/16 06:50 General appearance: Present: A&O X 3, morbidly obese, no acute distress, answers questions appropriately - Head Head exam: Present: atraumatic, normocephalic - Eye Eye exam: Present: PERRL, conjuntiva pink, sclera anicteric Pupils: Present: PERRL - Neck Neck exam general surgery: Present: supple, trachea midline. Absent: lymphadenopathy - Respiratory Respiratory exam: Present: CTAB. Absent: accessory muscle use, rales, rhonchi, wheezes - Cardiovascular Cardiovascular exam: Present: irregular rhythm, +S1, +S2. Absent: diastolic murmur, gallop, rubs, systolic murmur - GI/Abdominal GI/Abdominal exam: Present: normal bowel sounds, soft, no peritoneal signs. Absent: distended, tenderness - Extremities Exam Extremities exam: Present: pedal edema, warm, radial pulses palpable and symmetrical. Absent: calf tenderness, cyanotic Additional comments: Legs wrapped in esthela, dressing clean, wounds not assessed Piting edema up to the knee. 2+ - Neurological Exam Neurological exam: Present: alert, CN II-XII intact, oriented X3, no focal deficits. Absent: pronater drift, facial droop, speech deficit - Skin Skin exam: Present: dry, intact Internal Medicine: Result - Labs CBC & Chem 7: 12/21/16 02:45 12/21/16 02:45 Labs: Short CBC 12/21/16 Range/Units 02:45 WBC 5.3 (4.3-11.1) K/mcL Hgb 8.0 L (12.9-16.9) g/dL Hct 26.6 L (37.5-50.1) % Plt Count 227 (140-400) K/mcL Neutrophils # 3.6 (1.6-8.9) K/mcL BMP 12/21/16 02:45 Sodium 142 Potassium 4.1 Chloride 106 Carbon Dioxide 26 BUN 51 H Creatinine 2.04 H Glucose 105 H Calcium 9.0 - ABG Interpretation ABG results: ABG ABG pH 7.38 pH Units (7.32-7.45) 12/18/16 14:12 ABG pCO2 43 mmHg (35-45) 12/18/16 14:12 ABG pO2 94 mmHg (85-104) 12/18/16 14:12 ABG O2 Saturation 97 % (95-98) 12/18/16 14:12 PT/INR, D-dimer PT 13.0 Seconds (9.4-12.1) H 12/12/16 23:06 - VTE Documentation of Mechanical Device: Venous foot pump, device Consult Discharge Plan - Plan Referrals: Zainab Rodney MD [Partnered Physician] - ( patient does not see Dr. Rodnye as his primary care patient is refer to P) NONE,PCP [Primary Care Provider] -
[2016-12-21] MEDS: Metoprolol XL (24 HR) Succ 50 MG TAB.ER.24H PO SCH (09:05)
[2016-12-21] MEDS: amLODIPine 5 MG TABLET PO SCH (09:05)
[2016-12-21] MEDS: BuPROPion XL (24 HR) 150 MG TABLET PO SCH (09:05)
[2016-12-21] MEDS: Furosemide 40 MG/4 ML VIAL IVP SCH ×2 (09:05→21:10)
[2016-12-21] MEDS: levoFLOXacin 500 MG TABLET PO SCH (09:05)
[2016-12-21] MEDS: Amoxicillin 500 MG CAPSULE PO SCH ×3 (09:05→21:10)
[2016-12-21] MEDS: Nystatin Cream 15 GM TUBE TP SCH ×2 (09:15→21:12)
[2016-12-21] MEDS: Insulin DETEMIR 100 UNIT/ML X5UNITS SQ SCH ×2 (09:16→22:42)
--- NOTE | 2016-12-21 11:04 | Nephrology Progress Note ---
Date of Encounter: 12/21/16 Time of Encounter: 11:00 - Assessment and Plan (1) SHANE (acute kidney injury) Current Visit: Yes Status: Acute baseline 1.18 of note, patient does have history of renal artery stenosis. last renal artery duplex from 08/05/15 showed stenosis of the right distal renal artery that was greater than 60%, left renal artery was hemodynamically well maintained. repeat renal artery imaging inconclusive due to bowel gas pattern. likely multifactorial secondary to sepsis, possible worsening renal artery stenosis. will also consider possible cardiorenal syndrome, glomerulonephritis retroperitoneal ultrasound showed no evidence of hydronephrosis. urine protein/Cr ratio 2.56-subnephrotic. urine total protein: 228 C3, C4 levels unremarkable. MALLORY negative. immunoelecrophesis unremarkable. plan: continue renoprotective strategy, avoid nephrotoxins as much as possible. strict I/O, goal is to keep him net getagtive 2-3L per day. no urgent indication for dialysis at this time. no brennan catheter needed from nephrology standpoint. consult to nutrition to discuss lifestyle modifications and dietary changes. agree with PT/OT and SNF at discharge. continue IV lasix 60mg BID for today. will switch to oral lasix 80mg BID tomorrow. possible tentative discharge for . (2) Volume overload Current Visit: Yes Status: Acute as above Qualifiers: Hypervolemia type: unspecified Qualified Code(s): E87.70 - Fluid overload, unspecified (3) Diastolic CHF Current Visit: Yes Status: Acute plan as above Qualifiers: Congestive heart failure chronicity: chronic Qualified Code(s): I50.32 - Chronic diastolic (congestive) heart failure (4) Renal artery stenosis Current Visit: Yes Status: Acute history of renal artery stenosis. repeat renal artery imaging ordered, but study was inadequate due to bowel gas obstruction of the aorta and renals. recommend follow up outpatient. 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 (7) Anemia Current Visit: Yes Status: Chronic Hg today 8, baseline around 13 etiolgy unclear at this time. possibilities include GI bleed secondary to xarelto, etc. likely a component of iron deficiency anemia. B12: 431 Folate: 14.2 Plan: stool guiac pending. started Senna today. continue iron supplementation with ferrous sulfate continue to monitor Hg. Qualifiers: Anemia type: due to chronic kidney disease Chronic kidney disease stage: stage 3 (moderate) Qualified Code(s): N18.3 - Chronic kidney disease, stage 3 (moderate); D63.1 - Anemia in chronic kidney disease; D63.1 - Anemia in chronic kidney disease (8) Sepsis Current Visit: Yes Status: Resolved resolved. per primary and podiatry Qualifiers: Sepsis type: sepsis due to unspecified organism Qualified Code(s): A41.9 - Sepsis, unspecified organism (9) Uncontrolled diabetes mellitus Current Visit: Yes Status: Acute type 2 uncontrolled DM with glucosuria, proteinura. patient is on vasotec at home. Plan: encouraged lifestyle modifications continue insulin basal and sliding scale per primary monitor blood sugars Qualifiers: Diabetes mellitus type: type 2 Diabetes mellitus complication status: with unspecified complications Diabetes mellitus rat exterminator insulin use: unspecified intermediate insulin use status Qualified Code(s): E11.8 - Type 2 diabetes mellitus with unspecified complications; E11.65 - Type 2 diabetes mellitus with hyperglycemia; E11.65 - Type 2 diabetes mellitus with hyperglycemia; E11.65 - Type 2 diabetes mellitus with hyperglycemia; E11.65 - Type 2 diabetes mellitus with hyperglycemia (10) DVT prophylaxis Current Visit: No Status: Acute on Xarelto Subjective Principal diagnosis: SHANE Interval history: 66 year old male evaluated at bedside. he denies nausea, vomiting, diarrhea, fever, chest pain, shortness of breath. he does admit to having some chills. Objective - Vital Signs Vital signs: Vital Signs Temp Pulse Resp BP Pulse Ox 12/21/16 06:50 97.9 F 74 18 145/79 92 12/21/16 03:50 95 12/21/16 03:44 97.8 F 71 19 141/74 95 12/21/16 00:12 97.5 F L 80 135/84 12/20/16 22:20 21 94 12/20/16 20:42 98.4 F 77 19 144/67 94 12/20/16 20:14 97.9 F 65 18 149/84 91 12/20/16 17:23 98.1 F 72 16 133/80 93 12/20/16 17:18 92 Intake and Output 12/20/16 12/21/16 12/21/16 23:59 07:59 15:59 Intake Total 800 / 800 240 / 240 Output Total 850 / 850 1000 / 1000 Balance -50 / -50 -1000 / -1000 240 / 240 Intake: Oral 800 / 800 240 / 240 Output: Catheter 850 / 850 1000 / 1000 Other: Meal Breakfast Percent of Meal Consumed 100% Weight 149.8 kg Blood Glucose* 227 93 Patient Weight 12/21/16 23:59 Weight 149.8 kg - General Appearance General appearance: Present: well-developed, well-nourished, obese Neck: Present: no JVD Respiratory: Present: clear Cardiology: Present: no murmurs, no rub, no gallops, no edema, edema, regular rate, regular rhythm, normal S1, normal S2 Gastrointestinal: Present: normoactive bowel sounds, no tenderness, no guarding , no organomegaly, distended Additional Comments: distended, firm Additional Comments: bilateral lower extremity cellulitis, lower extremities are wrapped with +2 pitting edema. Neurologic: Present: no focal deficit, alert and oriented x3 - Lab 12/21/16 02:45 12/21/16 02:45 Most recent lab results ABG pH 7.38 pH Units (7.32-7.45) 12/18/16 14:12 ABG pCO2 43 mmHg (35-45) 12/18/16 14:12 ABG pO2 94 mmHg (85-104) 12/18/16 14:12 ABG HCO3 26 mEq/L (21-27) 12/18/16 14:12 ABG O2 Saturation 97 % (95-98) 12/18/16 14:12 Calcium 9.0 mg/dL (8.6-10.8) 12/21/16 02:45 Phosphorus 4.0 mg/dL (2.3-4.7) 12/18/16 13:45 Magnesium 2.4 mg/dL (1.6-2.6) 12/18/16 13:45 Urine Creatinine 89 mg/dL 12/13/16 17:50 Urine Total Protein 228 mg/dL (1-14) H 12/13/16 17:50 - VTE Documentation of Mechanical Device: Venous foot pump, device Consult Discharge Plan - Plan Referrals: Zainab Rodney MD [Partnered Physician] - (patient does not see Dr. Rodney as his primary care) NONE,PCP [Primary Care Provider] -
[2016-12-21 11:24] LABS: % Iron Saturation 11 % (20-55); Iron 19 mcg/dL (65-175); Transferrin 125 mg/dL (174-364)
[2016-12-21] MEDS: Sennosides 8.6 MG TABLET PO SCH ×2 (12:07→21:10)
[2016-12-21] MEDS: *HR* Rivaroxaban 15 MG TABLET PO SCH (17:11)
[2016-12-21] MEDS: Miconazole 2% ointment 114 GM TUBE TP SCH (21:12)
[2016-12-22] MEDS: hydrALAZINE 10 MG TABLET PO SCH ×4 (00:39→17:13)
[2016-12-22 03:49] LABS: Basophils % 0.8 %; Eosinophils # 0.2 K/mcL (0.0-0.6); Eosinophils % 4.6 %; Hemoglobin 7.7 g/dL (12.9-16.9); Immature Granulocytes % 0.2 % (0-4); Immature Platelets 2.2 % (1.1-6.1); Lymphocytes # 0.8 K/mcL (0.6-4.6); Lymphocytes % 16.2 %; Mean Corpuscular HGB Conc 29.6 g/dL (31.6-35.5); Mean Corpuscular Hemoglobin 24.8 pg (28.0-33.3); Mean Corpuscular Volume 83.9 fL (83.0-100.0); Mean Platelet Volume 9.8 fL (9.4-12.4); Monocytes # 0.5 K/mcL (0.0-1.3); Monocytes % 9.9 %; Platelet Count 232 K/mcL (140-400); Red Cell Distribution Width 16.1 % (11.5-14.5); Segmented Neutrophils % 68.3 %
[2016-12-22 04:08] LABS: Calcium 9.2 mg/dL (8.6-10.8); Potassium 4.3 mEq/L (3.5-4.5)
[2016-12-22 04:56] LABS: Neutrophils # 3.6 K/mcL (1.6-8.9)
[2016-12-22 05:44] LABS: Anisocytosis 1+ (Not Present); Platelet Estimate Slight Decrease (Normal)
[2016-12-22] MEDS: Sennosides 8.6 MG TABLET PO SCH ×2 (09:10→19:45)
[2016-12-22] MEDS: BuPROPion XL (24 HR) 150 MG TABLET PO SCH (09:10)
[2016-12-22] MEDS: Spironolactone 25 MG TABLET PO SCH (09:10)
[2016-12-22] MEDS: Amoxicillin 500 MG CAPSULE PO SCH ×3 (09:10→19:44)
[2016-12-22] MEDS: levoFLOXacin 500 MG TABLET PO SCH (09:11)
[2016-12-22] MEDS: Insulin DETEMIR 100 UNIT/ML X5UNITS SQ SCH ×2 (09:11→21:28)
[2016-12-22] MEDS: Metoprolol XL (24 HR) Succ 50 MG TAB.ER.24H PO SCH (09:11)
[2016-12-22] MEDS: Insulin LISPRO 300 UNITS/3 ML VIAL SQ SCH ×7 (09:11→21:28)
[2016-12-22] MEDS: Furosemide 40 MG/4 ML VIAL IVP SCH (09:11)
[2016-12-22] MEDS: amLODIPine 5 MG TABLET PO SCH (09:11)
[2016-12-22] MEDS: Nystatin Cream 15 GM TUBE TP SCH ×2 (09:24→19:47)
--- NOTE | 2016-12-22 09:41 | Nephrology Progress Note ---
Date of Encounter: 12/22/16 Time of Encounter: 09:39 - Assessment and Plan (1) SHANE (acute kidney injury) Current Visit: Yes Status: Acute baseline 1.18 of note, patient does have history of renal artery stenosis. last renal artery duplex from 08/05/15 showed stenosis of the right distal renal artery that was greater than 60%, left renal artery was hemodynamically well maintained. repeat renal artery imaging inconclusive due to bowel gas pattern. likely multifactorial secondary to sepsis, possible worsening renal artery stenosis. will also consider possible cardiorenal syndrome, glomerulonephritis retroperitoneal ultrasound showed no evidence of hydronephrosis. urine protein/Cr ratio 2.56-subnephrotic. urine total protein: 228 C3, C4 levels unremarkable. MALLORY negative. immunoelecrophesis unremarkable. plan: continue renoprotective strategy, avoid nephrotoxins as much as possible. strict I/O, no urgent indication for dialysis at this time. no brennan catheter needed from nephrology standpoint. consult to nutrition to discuss lifestyle modifications and dietary changes. agree with PT/OT and SNF at discharge. switched to oral lasix 80mg BID tomorrow and monitor. possible tentative discharge for from nephro standpoint. (2) Volume overload Current Visit: Yes Status: Acute as above Qualifiers: Hypervolemia type: unspecified Qualified Code(s): E87.70 - Fluid overload, unspecified (3) Diastolic CHF Current Visit: Yes Status: Acute plan as above Qualifiers: Congestive heart failure chronicity: chronic Qualified Code(s): I50.32 - Chronic diastolic (congestive) heart failure (4) Renal artery stenosis Current Visit: Yes Status: Chronic history of renal artery stenosis. repeat renal artery imaging ordered, but study was inadequate due to bowel gas obstruction of the aorta and renals. recommend follow up outpatient. 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 (7) Anemia Current Visit: Yes Status: Chronic Hg today 8, baseline around 13 etiolgy unclear at this time. possibilities include GI bleed secondary to xarelto, etc. likely a component of iron deficiency anemia. B12: 431 Folate: 14.2 Plan: stool guiac pending. continue senna continue iron supplementation with ferrous sulfate continue to monitor Hg. Qualifiers: Anemia type: due to chronic kidney disease Chronic kidney disease stage: stage 3 (moderate) Qualified Code(s): N18.3 - Chronic kidney disease, stage 3 (moderate); D63.1 - Anemia in chronic kidney disease; D63.1 - Anemia in chronic kidney disease (8) Sepsis Current Visit: Yes Status: Resolved resolved. per primary and podiatry Qualifiers: Sepsis type: sepsis due to unspecified organism Qualified Code(s): A41.9 - Sepsis, unspecified organism (9) Uncontrolled diabetes mellitus Current Visit: Yes Status: Acute type 2 uncontrolled DM with glucosuria, proteinura. patient is on vasotec at home. Plan: encouraged lifestyle modifications continue insulin basal and sliding scale per primary monitor blood sugars Qualifiers: Diabetes mellitus type: type 2 Diabetes mellitus complication status: with unspecified complications Diabetes mellitus termite treater helper insulin use: unspecified termite treater helper insulin use status Qualified Code(s): E11.8 - Type 2 diabetes mellitus with unspecified complications; E11.65 - Type 2 diabetes mellitus with hyperglycemia; E11.65 - Type 2 diabetes mellitus with hyperglycemia; E11.65 - Type 2 diabetes mellitus with hyperglycemia; E11.65 - Type 2 diabetes mellitus with hyperglycemia (10) DVT prophylaxis Current Visit: No Status: Acute on Xarelto Subjective Principal diagnosis: SHANE Interval history: 66 year old male evaluated at bedside. he denies nausea, vomiting, diarrhea, fever, chest pain, shortness of breath. he does admit to having some chills. he denies any new complaints today. Objective - Vital Signs Vital signs: Vital Signs Temp Pulse Resp BP Pulse Ox 12/22/16 06:16 97.6 F 87 18 122/72 93 12/22/16 05:37 97.9 F 73 18 102/84 93 12/22/16 00:28 98.1 F 71 18 129/79 94 12/21/16 20:21 98.2 F 65 18 117/74 99 12/21/16 15:23 98.2 F 76 24 156/88 93 12/21/16 10:51 98.2 F 79 16 150/62 95 Intake and Output 12/21/16 12/22/16 12/22/16 23:59 07:59 15:59 Intake Total 470 / 470 Balance 470 / 470 Intake: Oral 470 / 470 Other: Blood Glucose* 138 127 - General Appearance General appearance: Present: well-developed, well-nourished, appears started age , obese Neck: Present: no JVD Respiratory: Present: clear Cardiology: Present: no murmurs, no rub, no gallops, no edema, regular rate, regular rhythm, normal S1, normal S2 Additional Comments: obese abdomen, firm, distended, non tender, positive bowel sounds. Integumentary: Present: no rash Additional Comments: bilateral lower extremities wrapped. - Lab 12/22/16 03:28 12/22/16 03:28 Most recent lab results ABG pH 7.38 pH Units (7.32-7.45) 12/18/16 14:12 ABG pCO2 43 mmHg (35-45) 12/18/16 14:12 ABG pO2 94 mmHg (85-104) 12/18/16 14:12 ABG HCO3 26 mEq/L (21-27) 12/18/16 14:12 ABG O2 Saturation 97 % (95-98) 12/18/16 14:12 Calcium 9.2 mg/dL (8.6-10.8) 12/22/16 03:28 Phosphorus 4.0 mg/dL (2.3-4.7) 12/18/16 13:45 Magnesium 2.4 mg/dL (1.6-2.6) 12/18/16 13:45 Urine Creatinine 89 mg/dL 12/13/16 17:50 Urine Total Protein 228 mg/dL (1-14) H 12/13/16 17:50 - VTE Documentation of Mechanical Device: Venous foot pump, device Consult Discharge Plan - Plan Referrals: Zainab Rodney MD [Partnered Physician] - ( patient does not see Dr. Rodney as his primary care patient is refer to [facility]) NONE,PCP [Primary Care Provider] -
--- NOTE | 2016-12-22 10:34 | Internal Med Progress Note ---
Date of Encounter: 12/22/16 Time of Encounter: 10:32 - Assessment and plan (1) Atrial fibrillation Current Visit: Yes Status: Chronic Assessment and plan: Currently rate controlled. Continue beta wade. On long-term anticoagulation with Xarelto, continue same Qualifiers: Atrial fibrillation type: chronic Qualified Code(s): I48.2 - Chronic atrial fibrillation (2) Poorly controlled diabetes mellitus Current Visit: Yes Status: Chronic Assessment and plan: Hemoglobin A1c noted to be 11.2%. FS mostly controlled in the past 24 hrs Continue basal, prandial insulin, adjust with FS (3) HTN (hypertension) Current Visit: Yes Status: Chronic Assessment and plan: Controlled, continue current meds Qualifiers: Hypertension type: essential hypertension Qualified Code(s): I10 - Essential (primary) hypertension (4) Non compliance w medication regimen Current Visit: Yes Status: Chronic Assessment and plan: Education provided (5) Morbid obesity Current Visit: Yes Status: Chronic Assessment and plan: Lifestyle modification (6) Cellulitis of both feet Current Visit: Yes Status: Acute Assessment and plan: Based on sensitivities, Wound culture with strep agalacitae in both feet as well as providentia in Lt foot wound IV antibiotics have been discontinued Continue amoxicillin -Day 3, Levaquiin Day 3 Total of 7 days so far of antibiotics (7) SHANE (acute kidney injury) Current Visit: Yes Status: Acute Assessment and plan: Improving slowly Continue to monitor Continue lasix Strict I/O renal is following, appreciate input (8) CHF (congestive heart failure) Current Visit: Yes Status: Acute Assessment and plan: Patient does have long-standing peripheral edema, however not hypoxic or short of breath at this time. Continue IV Lasix and beta wade. Negative fluid balance, continue to monitor Continue telemetry monitoring. Fluid restriction, strict input/output monitoring. ECHo with EF 55%, indeterminate LVDD, no pulm HTN Qualifiers: Congestive heart failure type: diastolic Congestive heart failure chronicity: acute on chronic Qualified Code(s): I50.33 - Acute on chronic diastolic (congestive) heart failure (9) Sepsis Current Visit: Yes Status: Resolved Assessment and plan: Resolved Secondary to bilateral lower extremity cellulitis. 12/12: Wound culture positive for Group B Strep and Gram Neg rods. Will continue coverage for both and await sensitivities. Monitor vital signs closely. Lactic acidosis currently improved. 12/15: Sensitivities resulted. Continue amoxicillin Qualifiers: Sepsis type: sepsis due to unspecified organism Qualified Code(s): A41.9 - Sepsis, unspecified organism (10) UTI (urinary tract infection) Current Visit: Yes Status: Acute Assessment and plan: Urinalysis suggestive of infection on admission Patient has been on [place] No urine culture per chart Will not repeat as patient has had multiple antibiotics Will d/c [place] Will send urine work up if symptomatic Qualifiers: Urinary tract infection type: acute cystitis Hematuria presence: with hematuria Qualified Code(s): N30.01 - Acute cystitis with hematuria (11) Anemia Current Visit: Yes Status: Chronic Assessment and plan: HB stable Possibly ACD, Vit B12 and folate WNL Iron profile showed OTIS FOBT ordered, pending BM, increased Senna to BID Continue to monitor Qualifiers: Anemia type: due to chronic kidney disease Chronic kidney disease stage: stage 3 (moderate) Qualified Code(s): N18.3 - Chronic kidney disease, stage 3 (moderate); D63.1 - Anemia in chronic kidney disease; D63.1 - Anemia in chronic kidney disease (12) Renal artery stenosis Current Visit: Yes Status: Chronic Assessment and plan: Chronic, repeat imaging not conclusive Renal is following, no surgical intervention is planned (13) Diabetic foot ulcer Current Visit: Yes Status: Chronic Assessment and plan: Noted to have chronic right heel ulcer. infected, management as in podiatry recommendations, continue wound dressing and antibiotics Qualifiers: Diabetic foot ulcer location: heel Diabetes mellitus type: type 2 Non- pressure ulcer stage: with other severity Qualified Code(s): E11.621 - Type 2 diabetes mellitus with foot ulcer; L97.408 - Non-pressure chronic ulcer of unspecified heel and midfoot with other specified severity; L97.408 - Non- pressure chronic ulcer of unspecified heel and midfoot with other specified severity - Subjective Interval history: 66 M with CHF, Afib, SANDRA, HTN, known non-compliance, light chain nephropathy, TRUDY he is being managed for CHFE, SHANE, Sepsis secondary to cellulitis I/O -4+L States no new complains. He is making urine and incontinent of urine - Constitutional Vitals: Temp Pulse Resp BP Pulse Ox 97.6 F 87 18 122/72 93 12/22/16 06:16 12/22/16 06:16 12/22/16 06:16 12/22/16 06:16 12/22/16 06:16 General appearance: Present: A&O X 3, morbidly obese, pleasant, no acute distress, answers questions appropriately - Head Head exam: Present: atraumatic, normocephalic - Eye Eye exam: Present: PERRL, conjuntiva pink, sclera anicteric Pupils: Present: PERRL - Neck Neck exam general surgery: Present: supple, trachea midline. Absent: lymphadenopathy - Respiratory Respiratory exam: Present: CTAB. Absent: accessory muscle use, rales, rhonchi, wheezes - Cardiovascular Cardiovascular exam: Present: RRR, +S1, +S2. Absent: diastolic murmur, gallop, rubs, systolic murmur - GI/Abdominal GI/Abdominal exam: Present: normal bowel sounds, soft, no peritoneal signs. Absent: distended, tenderness - Extremities Exam Extremities exam: Present: pedal edema, warm, radial pulses palpable and symmetrical. Absent: calf tenderness, cyanotic Additional comments: Legs wrapped in esthela, dressing clean, wounds not assessed Piting edema up to the knee. 2+, improving, soft - Neurological Exam Neurological exam: Present: alert, CN II-XII intact, oriented X3, no focal deficits. Absent: pronater drift, facial droop, speech deficit - Skin Skin exam: Present: dry, intact Internal Medicine: Result - Labs CBC & Chem 7: 12/22/16 03:28 12/22/16 03:28 Labs: Short CBC 12/22/16 Range/Units 03:28 WBC 5.2 (4.3-11.1) K/mcL Hgb 7.7 L (12.9-16.9) g/dL Hct 26.0 L (37.5-50.1) % Plt Count 232 (140-400) K/mcL Neutrophils # 3.6 (1.6-8.9) K/mcL BMP 12/22/16 03:28 Sodium 143 Potassium 4.3 Chloride 106 Carbon Dioxide 27 BUN 52 H Creatinine 2.00 H Glucose 83 Calcium 9.2 - ABG Interpretation ABG results: ABG ABG pH 7.38 pH Units (7.32-7.45) 12/18/16 14:12 ABG pCO2 43 mmHg (35-45) 12/18/16 14:12 ABG pO2 94 mmHg (85-104) 12/18/16 14:12 ABG O2 Saturation 97 % (95-98) 12/18/16 14:12 PT/INR, D-dimer PT 13.0 Seconds (9.4-12.1) H 12/12/16 23:06 - VTE Documentation of Mechanical Device: Venous foot pump, device Consult Discharge Plan - Plan Referrals: Zainab Rodney MD [Partnered Physician] - ( patient does not see Dr. Rodney as his primary care patient is refer to [facility]) NONE,PCP [Primary Care Provider] -
[2016-12-22] MEDS: *HR* Rivaroxaban 15 MG TABLET PO SCH (15:34)
[2016-12-22] MEDS ORDERED: Furosemide 40 MG TABLET PO SCH (17:00)
[2016-12-22] MEDS: Miconazole 2% ointment 114 GM TUBE TP SCH (19:46)
[2016-12-23] MEDS: hydrALAZINE 10 MG TABLET PO SCH ×3 (00:42→12:25)
[2016-12-23 04:54] LABS: Basophils % 0.8 %; Eosinophils # 0.2 K/mcL (0.0-0.6); Eosinophils % 4.4 %; Hematocrit 26.7 % (37.5-50.1); Immature Granulocytes % 0.6 % (0-4); Lymphocytes # 0.8 K/mcL (0.6-4.6); Lymphocytes % 16.7 %; Mean Corpuscular Hemoglobin 25.2 pg (28.0-33.3); Mean Platelet Volume 10.1 fL (9.4-12.4); Monocytes # 0.5 K/mcL (0.0-1.3); Monocytes % 9.5 %; Neutrophils # 3.2 K/mcL (1.6-8.9); Platelet Count 227 K/mcL (140-400); Red Blood Count 3.18 M/mcL (4.19-5.50)
[2016-12-23 05:16] LABS: Calcium 9.1 mg/dL (8.6-10.8); Potassium 4.3 mEq/L (3.5-4.5)
[2016-12-23] MEDS: BuPROPion XL (24 HR) 150 MG TABLET PO SCH (08:41)
[2016-12-23] MEDS: levoFLOXacin 500 MG TABLET PO SCH (08:41)
[2016-12-23] MEDS: Metoprolol XL (24 HR) Succ 50 MG TAB.ER.24H PO SCH (08:41)
[2016-12-23] MEDS: Amoxicillin 500 MG CAPSULE PO SCH (08:41)
[2016-12-23] MEDS: amLODIPine 5 MG TABLET PO SCH (08:42)
[2016-12-23] MEDS: Sennosides 8.6 MG TABLET PO SCH (08:42)
[2016-12-23] MEDS: Spironolactone 25 MG TABLET PO SCH (08:44)
[2016-12-23] MEDS: Nystatin Cream 15 GM TUBE TP SCH (08:44)
[2016-12-23] MEDS: Insulin LISPRO 300 UNITS/3 ML VIAL SQ SCH ×4 (08:47→12:22)
[2016-12-23] MEDS: Insulin DETEMIR 100 UNIT/ML X5UNITS SQ SCH (09:39)
--- NOTE | 2016-12-23 10:40 | Nephrology Progress Note ---
Date of Encounter: 12/23/16 Time of Encounter: 10:37 - Assessment and Plan (1) SHANE (acute kidney injury) Current Visit: Yes Status: Acute baseline 1.18 of note, patient does have history of renal artery stenosis. last renal artery duplex from 08/05/15 showed stenosis of the right distal renal artery that was greater than 60%, left renal artery was hemodynamically well maintained. repeat renal artery imaging inconclusive due to bowel gas pattern. likely multifactorial secondary to sepsis, possible worsening renal artery stenosis. will also consider possible cardiorenal syndrome, glomerulonephritis retroperitoneal ultrasound showed no evidence of hydronephrosis. urine protein/Cr ratio 2.56-subnephrotic. urine total protein: 228 C3, C4 levels unremarkable. MALLORY negative. immunoelecrophesis unremarkable. plan: continue renoprotective strategy, avoid nephrotoxins as much as possible, strict I/O no urgent indication for dialysis at this time. if he stays today, continue 80mg oral lasix BID. if he goes home, please send on 60mg PO BID check BMP early next week and then again in 6-8 weeks to monitor renal function. forward results to PCP and Dr. Mcmanus. follow up outpatient with Dr. Mcmanus in 6-8 weeks. follow up outpatient with Heme/onc for lambda light chain disease (2) Volume overload Current Visit: Yes Status: Acute as above Qualifiers: Hypervolemia type: unspecified Qualified Code(s): E87.70 - Fluid overload, unspecified (3) Diastolic CHF Current Visit: Yes Status: Acute plan as above Qualifiers: Congestive heart failure chronicity: chronic Qualified Code(s): I50.32 - Chronic diastolic (congestive) heart failure (4) Renal artery stenosis Current Visit: Yes Status: Chronic history of renal artery stenosis. repeat renal artery imaging ordered, but study was inadequate due to bowel gas obstruction of the aorta and renals. recommend follow up outpatient. 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 (7) Anemia Current Visit: Yes Status: Chronic Hg today 8, baseline around 13 etiolgy unclear at this time. possibilities include GI bleed secondary to xarelto, etc. likely a component of iron deficiency anemia. B12: 431 Folate: 14.2 Plan: stool guiac pending. continue senna continue iron supplementation with ferrous sulfate continue to monitor Hg. Qualifiers: Anemia type: due to chronic kidney disease Chronic kidney disease stage: stage 3 (moderate) Qualified Code(s): N18.3 - Chronic kidney disease, stage 3 (moderate); D63.1 - Anemia in chronic kidney disease; D63.1 - Anemia in chronic kidney disease (8) Sepsis Current Visit: Yes Status: Resolved resolved. per primary and podiatry Qualifiers: Sepsis type: sepsis due to unspecified organism Qualified Code(s): A41.9 - Sepsis, unspecified organism (9) Uncontrolled diabetes mellitus Current Visit: Yes Status: Acute type 2 uncontrolled DM with glucosuria, proteinura. patient is on vasotec at home. Plan: encouraged lifestyle modifications continue insulin basal and sliding scale per primary monitor blood sugars Qualifiers: Diabetes mellitus type: type 2 Diabetes mellitus complication status: with unspecified complications Diabetes mellitus ad terminal makeup operator insulin use: unspecified ad terminal makeup operator insulin use status Qualified Code(s): E11.8 - Type 2 diabetes mellitus with unspecified complications; E11.65 - Type 2 diabetes mellitus with hyperglycemia; E11.65 - Type 2 diabetes mellitus with hyperglycemia; E11.65 - Type 2 diabetes mellitus with hyperglycemia; E11.65 - Type 2 diabetes mellitus with hyperglycemia (10) DVT prophylaxis Current Visit: No Status: Acute on Xarelto Subjective Principal diagnosis: SHANE Interval history: 66 year old male evaluated at bedside. he denies nausea, vomiting, diarrhea, fever, chest pain, shortness of breath. he does admit to having some chills. he denies any new complaints today. Objective - Vital Signs Vital signs: Vital Signs Temp Pulse Resp BP Pulse Ox 12/23/16 07:25 98.5 F 75 17 149/78 96 12/23/16 03:40 98.4 F 75 18 132/76 94 12/22/16 22:57 98.5 F 75 18 125/62 94 12/22/16 19:19 98.4 F 76 20 117/63 93 12/22/16 15:28 98.7 F 68 18 137/81 94 12/22/16 12:14 97.8 F 82 18 128/76 94 Intake and Output 12/22/16 12/23/16 12/23/16 23:59 07:59 15:59 Intake Total 120 / 120 590 / 590 870 / 870 Output Total 0 / 0 Balance 120 / 120 590 / 590 870 / 870 Intake: Oral 120 / 120 590 / 590 870 / 870 Output: Urine 0 / 0 Other: Meal Breakfast Percent of Meal Consumed 5% Stool Size Moderate Stool Consistency formed Stool Color Brown # Voids 1 # Urine Diapers 1 1 # Bowel Movement Diapers 1 Weight 143.8 kg Blood Glucose* 191 222 Patient Weight 12/23/16 23:59 Weight 143.8 kg - General Appearance General appearance: Present: well-developed, well-nourished, appears started age , obese Neck: Present: no JVD Respiratory: Present: clear Cardiology: Present: no murmurs, no rub, no gallops, regular rate, regular rhythm, normal S1, normal S2 Gastrointestinal: Present: normoactive bowel sounds, no tenderness, no guarding , no organomegaly, no masses Integumentary: Present: no rash, warm and dry Neurologic: Present: no focal deficit, no asterixis, alert and oriented x3, strength 5/5 Additional Comments: bilateral lower extremities wraped. - Lab 12/23/16 04:25 12/23/16 04:25 Most recent lab results ABG pH 7.38 pH Units (7.32-7.45) 12/18/16 14:12 ABG pCO2 43 mmHg (35-45) 12/18/16 14:12 ABG pO2 94 mmHg (85-104) 12/18/16 14:12 ABG HCO3 26 mEq/L (21-27) 12/18/16 14:12 ABG O2 Saturation 97 % (95-98) 12/18/16 14:12 Calcium 9.1 mg/dL (8.6-10.8) 12/23/16 04:25 Phosphorus 4.0 mg/dL (2.3-4.7) 12/18/16 13:45 Magnesium 2.4 mg/dL (1.6-2.6) 12/18/16 13:45 Urine Creatinine 89 mg/dL 12/13/16 17:50 Urine Total Protein 228 mg/dL (1-14) H 12/13/16 17:50 - VTE Documentation of Mechanical Device: Venous foot pump, device Consult Discharge Plan - Plan Referrals: NONE,PCP [Primary Care Provider] - (Patient will follow up with PCP at the [facility])
--- NOTE | 2016-12-23 11:11 | Physician Discharge Referral ---
ExtendedCare Referral Info Transfer To: SNF Provider in Charge: Asa Walalce Provider in Charge after Transfer: PCP Institutional Level of Care: Skilled - Diagnosis (1) Atrial fibrillation Priority: Secondary Status: Chronic (2) Poorly controlled diabetes mellitus Priority: Secondary Status: Chronic (3) HTN (hypertension) Priority: Secondary Status: Chronic (4) Non compliance w medication regimen Priority: Primary Status: Chronic (5) Morbid obesity Priority: Secondary Status: Chronic (6) Cellulitis of both feet Priority: Primary Status: Acute (7) SHANE (acute kidney injury) Priority: Primary Status: Acute (8) CHF (congestive heart failure) Priority: Primary Status: Acute (9) Sepsis Priority: Primary Status: Resolved (10) UTI (urinary tract infection) Priority: Primary Status: Ruled-out (11) Anemia Priority: Secondary Status: Chronic (12) Renal artery stenosis Priority: Secondary Status: Chronic (13) Diabetic foot ulcer Priority: Secondary Status: Chronic Prognosis: Fair Aware of Diagnosis: Patient Aware of Prognosis: Patient - Transfer Medications Home Medications: Atorvastatin [Lipitor] 40 mg PO DAILY 03/20/15 [History] Bupropion HCl [Wellbutrin Xl] 300 mg PO DAILY 03/20/15 [History] Metoprolol XL (24 HR) Succ [Toprol Xl] 150 mg PO DAILY 03/20/15 [History] Oxybutynin Chloride [Ditropan Xl] 10 mg PO DAILY 03/20/15 [History] Rivaroxaban [Xarelto] 20 mg PO DAILY 03/20/15 [History] Tamsulosin [Flomax] 0.4 mg PO DAILY 03/20/15 [History] Amlodipine Besylate 10 mg PO DAILY 12/12/16 [History] Amoxicillin [Amoxil] 500 mg PO TID capsule 12/23/16 [Rx] Ferrous Sulfate 325 mg PO BIDWM tablet 12/23/16 [Rx] Furosemide [Lasix] 40 mg PO BIDDIURETIC tablet 12/23/16 [Rx] Insulin DETEMIR [Levemir] 35 unit SQ BID [id number] 12/23/16 [Rx] Insulin LISPRO [HumaLOG] 8 units SQ TIDWM vial 12/23/16 [Rx] Nystatin Cream [Mycostatin Cream] 1 appl TP BID tube 12/23/16 [Rx] Spironolactone [Aldactone] 12.5 mg PO DAILY tablet 12/23/16 [Rx] hydrALAZINE [HydrALAZINE] 10 mg PO Q6HR tablet 12/23/16 [Rx] levoFLOXacin [Levaquin] 500 mg PO DAILY tablet 12/23/16 [Rx] Allergies/Adverse Reactions: 3 Allergy/AdvReac Type Severity Reaction Status Date / Time No Known Allergies Allergy Verified 12/12/16 17:56 - Respiratory Orders Oxygen / L per min, Other (BIPAP prn) Smoking Cessation: Smoking cessation has been advised. For more information, call the [place] Tobacco Quit Line at 8-821-UYVC-NOW. - Advance Directives Code Status: DNR-Arrest/Don't Intubate - Rehabiliation Orders Rehab Potential: Fair Rehab Orders: Evaluation for Physical Therapy - Treatments List/Other: Wound Care: - cleanse daily with HCG soap and water - rinse well with water and pat dry - Apply QUYEN boot to BLE with Kerlex and coban for compression. Elevate. - Change wound care three times weekly. - Diet Orders No Added Salt (CORTNEY), No Concentrated Sweets, Renal, Cardiac CERTIFICATION: I certify that the transfer of the above named patient to an Extended Care Facility is necessary for the continuing treatment of the diagnosis listed. The above information is true and accurate reflection of patient's current condition. Confidential - Redisclosure prohibited without a patient's written consent.
--- NOTE | 2016-12-23 11:16 | Discharge Summary ---
Date of Encounter: 12/23/16 Time of Encounter: 09:40 - Discharge Diagnosis (1) Atrial fibrillation Priority: Secondary Status: Chronic Qualifiers: Atrial fibrillation type: chronic Qualified Code(s): I48.2 - Chronic atrial fibrillation (2) Poorly controlled diabetes mellitus Priority: Secondary Status: Chronic (3) HTN (hypertension) Priority: Secondary Status: Chronic Qualifiers: Hypertension type: essential hypertension Qualified Code(s): I10 - Essential (primary) hypertension (4) Non compliance w medication regimen Priority: Secondary Status: Chronic (5) Morbid obesity Priority: Secondary Status: Chronic (6) Cellulitis of both feet Priority: Primary Status: Acute (7) SHANE (acute kidney injury) Priority: Primary Status: Acute (8) CHF (congestive heart failure) Priority: Secondary Status: Chronic Qualifiers: Congestive heart failure type: diastolic Congestive heart failure chronicity: acute on chronic Qualified Code(s): I50.33 - Acute on chronic diastolic (congestive) heart failure (9) Sepsis Priority: Primary Status: Resolved Qualifiers: Sepsis type: sepsis due to unspecified organism Qualified Code(s): A41.9 - Sepsis, unspecified organism (10) UTI (urinary tract infection) Priority: Secondary Status: Ruled-out Qualifiers: Urinary tract infection type: acute cystitis Hematuria presence: with hematuria Qualified Code(s): N30.01 - Acute cystitis with hematuria (11) Anemia Priority: Secondary Status: Chronic Qualifiers: Anemia type: due to chronic kidney disease Chronic kidney disease stage: stage 3 (moderate) Qualified Code(s): N18.3 - Chronic kidney disease, stage 3 (moderate); D63.1 - Anemia in chronic kidney disease; D63.1 - Anemia in chronic kidney disease (12) Renal artery stenosis Priority: Secondary Status: Chronic (13) Diabetic foot ulcer Priority: Secondary Status: Chronic Qualifiers: Diabetic foot ulcer location: heel Diabetes mellitus type: type 2 Non- pressure ulcer stage: with other severity Qualified Code(s): E11.621 - Type 2 diabetes mellitus with foot ulcer; L97.408 - Non-pressure chronic ulcer of unspecified heel and midfoot with other specified severity; L97.408 - Non- pressure chronic ulcer of unspecified heel and midfoot with other specified severity - Discharge Medications Home Medications: Atorvastatin [Lipitor] 40 mg PO DAILY 03/20/15 [History] Bupropion HCl [Wellbutrin Xl] 300 mg PO DAILY 03/20/15 [History] Metoprolol XL (24 HR) Succ [Toprol Xl] 150 mg PO DAILY 03/20/15 [History] Oxybutynin Chloride [Ditropan Xl] 10 mg PO DAILY 03/20/15 [History] Rivaroxaban [Xarelto] 20 mg PO DAILY 03/20/15 [History] Tamsulosin [Flomax] 0.4 mg PO DAILY 03/20/15 [History] Amlodipine Besylate 10 mg PO DAILY 12/12/16 [History] Amoxicillin [Amoxil] 500 mg PO TID capsule 12/23/16 [Rx] Ferrous Sulfate 325 mg PO BIDWM tablet 12/23/16 [Rx] Furosemide [Lasix] 40 mg PO BIDDIURETIC tablet 12/23/16 [Rx] Insulin DETEMIR [Levemir] 35 unit SQ BID t2cumhb 12/23/16 [Rx] Insulin LISPRO [HumaLOG] 8 units SQ TIDWM vial 12/23/16 [Rx] Nystatin Cream [Mycostatin Cream] 1 appl TP BID tube 12/23/16 [Rx] Spironolactone [Aldactone] 12.5 mg PO DAILY tablet 12/23/16 [Rx] hydrALAZINE [HydrALAZINE] 10 mg PO Q6HR tablet 12/23/16 [Rx] levoFLOXacin [Levaquin] 500 mg PO DAILY tablet 12/23/16 [Rx] Allergies/Adverse Reactions: 3 Allergy/AdvReac Type Severity Reaction Status Date / Time No Known Allergies Allergy Verified 12/12/16 17:56 Date of admission: 12/13/16 18:19 Primary care physician: PCP NONE Consults: 12/15/16 14:39 Consult to Invasive Line Access Team [CONS] Routine Reason for Consult: long term care administrator ATB Line Type: EPIV 12/15/16 16:12 Consult to Screen Handler [CONS] Routine Reason for SW Consult: SNF at discharge 12/20/16 13:43 Consult to Nutrition [CONS] Routine Comment: Consulting Provider: NUTRITION Reason for Dietary Consult: Other Other:: talk to patient about weight loss, management diet with CHF, DM Discharging clinician: Evgeny Wallace Anticipated date of discharge: 12/23/16 - Patient Status Disposition: Transfer SNF Condition: Fair Functional capacity at discharge: uses cane/walker Overall status at discharge: patient is progressing back to baseline - Discharge Instructions Follow Up With: [facility] [Provider Group] - 01/17/17 8:40 am ([phone] - Dr. ELDER) Alfa Mcmanus DO [Partnered Physician] - 02/08/17 3:10 pm () - Diet and Activity Activity: resume usual activities as tolerated Diet: diabetic diet, low fat, low cholesterol, low salt diet Interval History: See below Hospital course: Mr. Ramirez is a 66 year old male with PMH of CHFpEF, CKD III, Renal Artery stenosis, Afin, HTN, Uncontrolled DM with chronic leg ulcers, Hx of medication non-compliance, Morbid Obesity The patient was admitted to [facility] for management of Sepsis with lactic acidosis secondary to cellulitis of both feet, Infected DM ulcers, Suspected UTI. He was also found to have acute on chronic CHF with bilateral piting pedal edema. He was started empirically on IV antibiotics and diuresis for CHF. Nephrology was consulted for SHANE on CKD He is seen and evaluated this morning, and has no complains, most of his clinical symptoms have resolved and he is back to his baseline, PTOT have recommended SNF placement for rehab. Sepsis and lactic acidosis has resolved. Wound culture with strep agalacitae in both feet as well as providentia in Lt Foot wound, he received IV and oral antibiotics for about 8 days. He is discharged on Amoxicillin and Levaquin for 4 more days Regarding CHF, he was in fluid overload with pedal edema, no chest findings, he did require BIPAP for ventilation. ECHO showed EF 55%, indeterminate LVDD, no pulm HTN Anemia is multifactorial: iron deficiency and kidney disease, he is discharged on Iron supplements. Diabetes was uncontrolled, Hemoglobin A1c noted to be 11.2%. He is discharged on Insulin regimen he was receiving in the hospital. His kidney function is at his baseline, work up for secondary causes including C3, C4, MALLORY, Immunoelectrophoresis were unremarkable. He does have TRUDY and is recommended to follow up with Dr. Alonzo He has light chain disease and can follow up with Therapist'S Assistant as out-patient Continue wound dressing as recommended, three times weekly Encourage weight loss for Morbid Obesity Plan of care discussed, verbalized understanding - Time Spent with Patient Total time spent providing and/or coordinating discharge services: Greater than 30 minutes - Constitutional Vitals: Temp Pulse Resp BP Pulse Ox 98.5 F 75 17 149/78 96 12/23/16 07:25 12/23/16 07:25 12/23/16 07:25 12/23/16 07:25 12/23/16 07:25 General appearance: Present: A&O X 3, morbidly obese, pleasant, no acute distress, answers questions appropriately - Head Head exam: Present: atraumatic, normocephalic - Eye Eye exam: Present: PERRL, conjuntiva pink, sclera anicteric Pupils: Present: PERRL - Neck Neck exam general surgery: Present: supple, trachea midline. Absent: lymphadenopathy - Respiratory Respiratory exam: Present: CTAB. Absent: accessory muscle use, rales, rhonchi, wheezes - Cardiovascular Cardiovascular exam: Present: RRR, +S1, +S2. Absent: diastolic murmur, gallop, rubs, systolic murmur - GI/Abdominal GI/Abdominal exam: Present: normal bowel sounds, soft, no peritoneal signs. Absent: distended, tenderness - Extremities Exam Additional comments: pedal edema has remarkabley improved, wound dressings are clean and dry - Neurological Exam Neurological exam: Present: alert, CN II-XII intact, oriented X3, no focal deficits. Absent: pronater drift, facial droop, speech deficit - Skin Skin exam: Present: dry - VTE Documentation of Mechanical Device: Venous foot pump, device
[2016-12-23 11:22] VITALS: BP 113/60
[2016-12-23] MEDS ORDERED: Furosemide 40 MG TABLET PO SCH (17:00)
== END 2016-12-23 14:10 | DRG 871 ==
LOC: EMEROO 17:53 → 3NENU 17:53 → SUATTDRO 12-13 18:19 → 2ANU 12-18 16:14
PROVIDERS: ADMIT Student in an Organized Health Care Education/Training Program; ATTEND Internal Medicine

== ENCOUNTER 2017-02-11 15:59 | Inpatient (IN) ==
--- NOTE | 2017-02-11 16:05 | Emergency Department Note ---
START Narrative - START START: I examined this patient and my medical decision-making was reviewed with the Resident Physician. I agree with the documented findings, disposition and treatment plan as described except to the extent set forth below. 66 year old male who is currently being treated for cellulitis of his LLE and has a history of fluid overload without a history of CHF or liver cirrhoiss and states taht he has had increased swelling ot his bilateral legs and most recently was in the hospital. Doron states that he think he may have a history of atrial fibrillation. We will do a cardiopulmonary workup and re- assess the cellulitis and rule out DVT
--- NOTE | 2017-02-11 16:24 | Emergency Department Note ---
Disposition Clinical Impression: Cellulitis of left leg, Non compliance w medication regimen, Elevated troponin Disposition: Admitted As Inpatient Condition: Fair Time of Disposition: 20:43 General Adult HPI - General Chief complaint: ED Shortness of Breath/Dyspnea Stated complaint: RILEY/ cellulitis Time Seen by Provider: 02/11/17 16:02 Source: EMS Mode of arrival: EMS Limitations: no limitations Nursing Notes Reviewed: Yes Vital Signs Reviewed: Yes - History of Present Illness HPI Narrative: Patient is a 58-year-old male with a past medical history atrial fibrillation, diabetes, hyperlipidemia, poorly controlled insulin-dependent diabetes, cellulitis, and hypertension presenting to the the emergency department with complaint of shortness of breath and left lower extremity cellulitis. Patient states that he was [facility] days ago [facility] which she is undergoing rehabilitation for recent hospital admission for medication noncompliance and cellulitis. Patient states that he does not think he is ready to go home at this time. He states that he has a health home nurse comes by 2 times a week to check on him and change his dressing for his left lower extremity. Patient states at 9/10 times he forgets his medications and does not take them. He is on Lasix. Patient denies any fevers, chills, chest pain, back pain, abdominal pain, nausea, vomiting, diarrhea. dysuria or calf tenderness. Patient states that the wound on his left lower extremity appears the same as when he was discharges only concern is that it is not improving. He states has not had any worsening of drainage from the wound or any increase in pain. trial fibrillation. Pain Scale: 0 - Related Data Home Medications Medication Instructions Recorded Confirmed Atorvastatin [Lipitor] 40 mg PO HS 03/20/15 02/11/17 Bupropion HCl [Wellbutrin Xl] 300 mg PO DAILY 03/20/15 02/11/17 Metoprolol XL (24 HR) Succ [Toprol 150 mg PO DAILY 03/20/15 02/11/17 Xl] Oxybutynin Chloride [Ditropan Xl] 10 mg PO DAILY 03/20/15 02/11/17 Rivaroxaban [Xarelto] 20 mg PO DAILY 03/20/15 02/11/17 Tamsulosin [Flomax] 0.4 mg PO DAILY 03/20/15 02/11/17 Amlodipine Besylate 10 mg PO DAILY 12/12/16 02/11/17 Insulin DETEMIR [Levemir] 34 unit SQ BID 01/17/17 02/11/17 Insulin LISPRO [HumaLOG] 8 - 10 units SQ TIDWM 01/17/17 02/11/17 Previous Rx's Medication Instructions Recorded Ferrous Sulfate 325 mg PO BIDWM tablet 12/23/16 Furosemide [Lasix] 40 mg PO BIDDIURETIC tablet 12/23/16 Spironolactone [Aldactone] 12.5 mg PO DAILY tablet 12/23/16 hydrALAZINE [HydrALAZINE] 10 mg PO Q6HR tablet 12/23/16 Allergies Allergy/AdvReac Type Severity Reaction Status Date / Time No Known Allergies Allergy Verified 02/11/17 16:08 All systems ED: reviewed and negative except as stated. Review of Systems: As Per HPI Constitutional: Denies: fever, chills Cardiovascular: Denies: chest pain, orthopnea Respiratory: Reports: other (shortness of breath). Denies: cough Gastrointestinal: Denies: abdominal pain, nausea, vomiting, diarrhea Genitourinary: Denies: urgency, dysuria Musculoskeletal: Denies: back pain, neck pain Integumentary: Reports: lesions Neurological: Denies: headache Past Medical History - Past Medical History Attestation: Yes The following information was validated with the patient. Medical history: Reports: atrial fibrillation, diabetes, hyperlipidemia, hypertension Surgical history: Reports: appendectomy Psychiatric history: Reports: no psych history - Social History Smoking Status: Never smoker Smokeless Tobacco Status: No Alcohol use: Reports: none Drug use: Reports: none Physical Exam Patient appears to be an obese male who is not in any acute distress at this time. He is able speak in full sentences. There was an incident when he first came in that his pulse ox is upper 70s however once he was placed on oxygen and this improved. His vital signs he is tachypneic at 22 aspirins per minute, blood pressure is elevated at 170/90 and patient is satting at 95% on 2 L. - General Limitations: no limitations General appearance: alert, in no apparent distress - Head Head exam: atraumatic, normocephalic, normal inspection - Eye Eye exam: Present: normal appearance, PERRL, EOMI - ENT ENT exam: normal exam, normal oropharynx - Neck Neck exam: Present: normal inspection, full ROM - Chest Chest inspection: Present: normal inspection, symmetric chest wall rise. Absent : tenderness, rash - Respiratory Respiratory exam: Present: normal lung sounds bilaterally. Absent: respiratory distress, wheezes - Cardiovascular Cardiovascular exam: Present: regular rate, normal rhythm, normal heart sounds, +S1, +S2 - Abdominal Exam Abdominal exam: Present: soft, Non-Tender, normal bowel sounds. Absent: tenderness - Extremities Exam Extremities exam: Present: other (Patient has severe edema bilateral lower extremities that is pitting and 2+. Dorsalis pedis and posterior tibialis are 2 + bilaterally. Patient's left lower extremity he does have a ulcerated lesion that is 2 cm in diameter to the anterior lower wills that does not appear to have any drainage or surrounding warmth or crepitance. He does have surrounding redness that appears chronic. The ulcer is very superficial.). Absent: calf tenderness - Expanded Lower Extremity Exam Gait: not tested/not observed - Back Exam Back exam: Present: normal inspection, full ROM. Absent: tenderness - Neurological Exam Neurological exam: Present: alert, oriented X3 - Psychiatric Psychiatric exam: Present: normal affect, normal mood Course Course Narrative: Spoke with the patient's family member in the room and she states that the patient is on a 1500 mL fluid restriction and she states that she senses medications out from every morning and he chooses not to take them. She states that initially it began a week when he is discharged from the hospital his left lower extremity appeared to be healed however the ulcer started off initially as a blister and then it ruptured and now it appears as this ulceration. She believes that his symptoms have been worsening since being discharged home. She states she has concerns keeping him at home because she is noncompliant with his medications and diet instructions that he is a poorly controlled diabetic and does not take his insulin. She states she liked to discuss custodial placement or more avenues for systems with him. - Reevaluation(s) Reevaluation #1: upon review of the patient's medicalcords this appears he was brought appears to be comminution of noncompliance with his medications affecting his atrial fibrillation, CHF, sepsis for his cellulitis and multiple other clinical impressions. Cor the patient's she states that she would prefer the patient be admitted tonight because he is not taking his medications at home and she is concerned that he will get worse when ER years. Discussed with the patient that his lab work is come back and other than his chronic findings patient does have an elevated BNP in the 200s. His chest x-ray does show mild vascular congestion. There is no leukocytosis at this time. Discussed the plan with the patient is to have the police Q scan done to rule out any PE and admit the patient for his cellulitis and medicine noncompliance. Patient agrees with this plan. Time: 19:42 Reevaluation #2: Discussed patient case with Dr. Meeir. Discussed that we will order a PT 40/ INR of the patient and see if he is on any Coumadin at home or is in within therapeutic range. Patient himself is unsure if he is on blood thinners and has not and is medical history as far as his current medications today. Discussed that if the INR is within the therapeutic range then heparinization is not necessary at this time, however if the INR is not therapeutic then heparin should be initiated for low-dose due to the patient's elevated troponin. Time: 20:42 Reevaluation #3: Patient's INR came back subtherapeutic and medical to the hospitalist at that time in discussed starting ACS low-dose heparin protocol hospitalist agrees with this plan he will do so upstairs. Vital Signs Temperature 98.0 F 02/11/17 16:06 Pulse Rate 79 02/11/17 16:06 Respiratory Rate 22 02/11/17 16:06 Blood Pressure 169/93 02/11/17 16:06 O2 Sat by Pulse Oximetry 74 02/11/17 16:06 Temperature 97.9 F 02/12/17 00:17 Pulse Rate 71 02/12/17 00:17 Respiratory Rate 24 02/12/17 00:17 Blood Pressure 148/81 02/12/17 00:17 O2 Sat by Pulse Oximetry 94 02/12/17 00:17 Oxygen Delivery Oxygen Delivery Nasal Cannula Medical Decision Making - Medical Records Medical records reviewed: Yes I reviewed the patient's medical records. - Lab Data Lab results reviewed: Yes I reviewed the patient's lab results. Result diagrams: 02/11/17 16:29 02/11/17 16:29 Lab Results 02/11/17 02/11/17 02/11/17 Range/Units 16:29 16:29 16:29 WBC 5.6 (4.3-11.1) K/mcL RBC 3.64 L (4.19-5.50) M/mcL Hgb 9.1 L (12.9-16.9) g/dL Hct 31.0 L (37.5-50.1) % MCV 85.2 (83.0-100.0) fL MCH 25.0 L (28.0-33.3) pg MCHC 29.4 L (31.6-35.5) g/dL RDW 17.6 H (11.5-14.5) % Plt Count 168 (140-400) K/mcL MPV 10.4 (9.4-12.4) fL Immature Gran % 0.4 (0-4) % Seg Neutrophils % 70.9 % Lymphocytes % 17.6 % Monocytes % 6.7 % Eosinophils % 3.9 % Basophils % 0.5 % Neutrophils # 4.0 (1.6-8.9) K/mcL Lymphocytes # 1.0 (0.6-4.6) K/mcL Monocytes # 0.4 (0.0-1.3) K/mcL Eosinophils # 0.2 (0.0-0.6) K/mcL Basophils # 0.0 (0.0-0.2) K/mcL Sodium 141 (136-145) mEq/L Potassium 4.4 (3.5-5.1) mEq/L Chloride 109 H (98-107) mEq/L Carbon Dioxide 26 (23-29) mEq/L BUN 26 H (8-23) mg/dL Creatinine 1.63 H (0.70-1.30) mg/dL Est GFR ( Amer) 51 L (> 60) Est GFR (Non-Af Amer) 42 L (> 60) BUN/Creatinine Ratio 16 (6-26) Glucose 327 H (70-105) mg/dL Calculated Osmolality 309 H (280-300) Lactic Acid 2.6 H (0.5-2.2) mmol/L Calcium 7.5 L (8.6-10.3) mg/dL Troponin I (< 0.04) ng/mL B-Natriuretic Peptide (Less than 100) pg/mL 02/11/17 02/11/17 02/11/17 Range/Units 16:29 16:29 19:42 WBC (4.3-11.1) K/mcL RBC (4.19-5.50) M/mcL Hgb (12.9-16.9) g/dL Hct (37.5-50.1) % MCV (83.0-100.0) fL MCH (28.0-33.3) pg MCHC (31.6-35.5) g/dL RDW (11.5-14.5) % Plt Count (140-400) K/mcL MPV (9.4-12.4) fL Immature Gran % (0-4) % Seg Neutrophils % % Lymphocytes % % Monocytes % % Eosinophils % % Basophils % % Neutrophils # (1.6-8.9) K/mcL Lymphocytes # (0.6-4.6) K/mcL Monocytes # (0.0-1.3) K/mcL Eosinophils # (0.0-0.6) K/mcL Basophils # (0.0-0.2) K/mcL Sodium (136-145) mEq/L Potassium (3.5-5.1) mEq/L Chloride (98-107) mEq/L Carbon Dioxide (23-29) mEq/L BUN (8-23) mg/dL Creatinine (0.70-1.30) mg/dL Est GFR ( Amer) (> 60) Est GFR (Non-Af Amer) (> 60) BUN/Creatinine Ratio (6-26) Glucose (70-105) mg/dL Calculated Osmolality (280-300) Lactic Acid 1.4 (0.5-2.2) mmol/L Calcium (8.6-10.3) mg/dL Troponin I 0.08 H* (< 0.04) ng/mL B-Natriuretic Peptide 284 H (Less than 100) pg/mL - Radiology Data Radiology results reviewed: Yes I reviewed the patient's radiology results. Chest X-Ray 02/11/17 16:20 IMPRESSION: 1. Unchanged cardiomegaly with mild pulmonary vascular congestion. D/ / Jhonny Lala MD / Jhonny Lala MD Interpreting Provider: Jhonny Lala MD Pulmonary Perfusion Imaging 02/11/17 17:33 IMPRESSION: Low Probability for Pulmonary Embolus. Ke/ / Steve Lisa MD / Steve Lisa MD Interpreting Provider: Steve Lisa MD - EKG Data EKG #1 EKG attestation: Yes I reviewed and interpreted this EKG. EKG results narrative: EKG done at 16:13 shows atrial fibrillation at 75 bpm. QRS is 92, QT is 305 and QTc is 425 these are within normal limits. No signs of ST elevation or depression. No Q waves present. This is unchanged from his EKG done on December 182016.
[2017-02-11 16:44] LABS: Basophils % 0.5 %; Eosinophils # 0.2 K/mcL (0.0-0.6); Eosinophils % 3.9 %; Hemoglobin 9.1 g/dL (12.9-16.9); Immature Granulocytes % 0.4 % (0-4); Lymphocytes % 17.6 %; Mean Corpuscular HGB Conc 29.4 g/dL (31.6-35.5); Mean Corpuscular Volume 85.2 fL (83.0-100.0); Mean Platelet Volume 10.4 fL (9.4-12.4); Monocytes # 0.4 K/mcL (0.0-1.3); Monocytes % 6.7 %; Platelet Count 168 K/mcL (140-400); Red Blood Count 3.64 M/mcL (4.19-5.50); Red Cell Distribution Width 17.6 % (11.5-14.5); Segmented Neutrophils % 70.9 %
[2017-02-11 17:06] LABS: Calcium 7.5 mg/dL (8.6-10.3); Potassium 4.4 mEq/L (3.5-5.1)
[2017-02-11] MEDS ORDERED: Aspirin 81 MG TAB.CHEW PO ONE (17:31)
[2017-02-11] MEDS ORDERED: cefTRIAXone 1,000 MG in Water for inj. (sterile) 10 ML IVP ONE (19:00)
[2017-02-11] MEDS ORDERED: Furosemide 40 MG/4 ML VIAL IVP ONE (19:30)
[2017-02-11 21:15] LABS: INR 1.6; Prothrombin Time 17.2 Seconds (9.4-12.1)
[2017-02-11 21:17] LABS: Activated Partial Thrombo Time 37.1 Seconds (26.0-36.0)
[2017-02-11] MEDS ORDERED: Heparin 25,000 UNIT/500 ML D5W 25,000 UNIT/500 ML BAG IVC SCH (21:45)
[2017-02-12] MEDS ORDERED: Naloxone 0.4 MG/ML INJ IVP PRN (01:24)
[2017-02-12] MEDS ORDERED: Ondansetron ODT 4 MG TAB.RAPDIS SL PRN (01:24)
[2017-02-12] MEDS ORDERED: D5% in Water 1,000 ML IVC PRN (01:29)
[2017-02-12] MEDS ORDERED: Dextrose Gel 15 GM PO PRN ×2 (01:29)
[2017-02-12] MEDS ORDERED: *HR* Dextrose 50 % in Water (Syg) 50 ML SYRINGE IVP PRN (01:29)
--- NOTE | 2017-02-12 02:30 | Internal Med History&Physical ---
Date of Encounter: 02/12/17 Time of Encounter: 02:29 Assessment and Plan (1) Cellulitis of left leg Current visit: Yes Status: Acute Start Linezolid (DM2 longstanding/uncontrolled MRSA coverage) + Continue Rocephin, recent history S. agalactiae Wound consult. (2) Heart failure, diastolic, with acute decompensation Current visit: No Status: Acute CXR pulmonary vascular congestion 1-2+ pitting edema bilaterally Fluid restriction per diet order: <2000mL, <1500mg salt ED consulted cardiology (3) Elevated troponin Current visit: Yes Status: Acute .08 to .03. Pt denies chest pain/arm/jaw/back symptoms, ECG shows no ischemic changes, adynamic, downtrending, likely demand ischemia. (4) Atrial fibrillation Current visit: No Status: Chronic Rate controlled on Toprol XL; Xarelto at home, currently on heparin. No evidence of RVR on telemetry. Qualifiers: Atrial fibrillation type: chronic Qualified Code(s): I48.2 - Chronic atrial fibrillation (5) DVT prophylaxis Current visit: No Status: Acute Receiving heparin acs protocol per ER, likely to transition to SQ heparin during day shift as VQ scan negative. Internal Medicine - H&P: HPI Admitted From: Emergency Dept Plans for Post Hospital Care: Transfer Snf Facility History of present illness: Mr. Ramirez is a 66 year old male past medication history of a-fib on Toprol and Xarelto, DM2 insulin-dependent hx non-compliance, HLD, CKD III, CHFpEF, recent poorly healing LLE cellulitis, presents with shortness of breath and ulceration of LLE since discharge from [facility] 5 days ago. Recently was admitted in late November for management of sepsis with lactic acidosis secondary to cellulitis of both feet with acute on chronic CHF exacerbation. ED workup shows mild elevated troponin of .08; ECG shows no ischemic changes, patient was started on low-dose ACS protocol heparin due to concern for VTE, VQ scan resulted as low risk for PE. Patient titrated to 4L O2 nasal cannula, saturating in mid-90s able to carry conversation without desaturating. Currently on fluid restriction. Denies chest pain, n/v, fever, or lightheadedness. Past Med Surg Social Fam HX - Past Medical History Medical history: atrial fibrillation, diabetes, hyperlipidemia, hypertension Psychiatric history: no psych history - Past Surgical History Surgical History: appendectomy - Social History Smoking Status: Never smoker Smokeless Tobacco Status: No Alcohol use: none Drug use: none - Family History Mother Living Status: Father Living Status: Hx Family Cancer: Yes Internal Medicine - H&P: Meds Atorvastatin [Lipitor] 40 mg PO HS 03/20/15 [History] Bupropion HCl [Wellbutrin Xl] 300 mg PO DAILY 03/20/15 [History] Metoprolol XL (24 HR) Succ [Toprol Xl] 150 mg PO DAILY 03/20/15 [History] Oxybutynin Chloride [Ditropan Xl] 10 mg PO DAILY 03/20/15 [History] Rivaroxaban [Xarelto] 20 mg PO DAILY 03/20/15 [History] Tamsulosin [Flomax] 0.4 mg PO DAILY 03/20/15 [History] Amlodipine Besylate 10 mg PO DAILY 12/12/16 [History] Ferrous Sulfate 325 mg PO BIDWM tablet 12/23/16 [Rx] Furosemide [Lasix] 40 mg PO BIDDIURETIC tablet 12/23/16 [Rx] Spironolactone [Aldactone] 12.5 mg PO DAILY tablet 12/23/16 [Rx] hydrALAZINE [HydrALAZINE] 10 mg PO Q6HR tablet 12/23/16 [Rx] Insulin DETEMIR [Levemir] 34 unit SQ BID 01/17/17 [History] Insulin LISPRO [HumaLOG] 8 - 10 units SQ TIDWM 01/17/17 [History] 3 Allergy/AdvReac Type Severity Reaction Status Date / Time No Known Allergies Allergy Verified 02/11/17 16:08 All Systems PM: A 10-system review of systems was performed and is negative for pertinent findings except as documented above in the HPI. - Constitutional Vitals: Temp Pulse Resp BP Pulse Ox 97.9 F 71 24 148/81 94 02/12/17 00:17 02/12/17 00:17 02/12/17 00:17 02/12/17 00:17 02/12/17 00:17 General appearance: Present: A&O X 3, no acute distress - Head Head exam: Present: atraumatic - Neck Neck exam general surgery: Present: full ROM. Absent: lymphadenopathy - Respiratory Respiratory exam: Present: CTAB - Cardiovascular Cardiovascular exam: Present: irregular rhythm, +S1, +S2 - Extremities Exam Additional comments: bilateral intact dorsalis pedis pulses, extremities warm, stage 1 ulcer right, ulcer LLE dressed no calf tenderness Internal Med - H&P Results - Labs CBC & Chem 7: 02/12/17 02:56 02/12/17 02:56
[2017-02-12] MEDS: Insulin LISPRO 300 UNITS/3 ML VIAL SQ SCH ×5 (02:42→20:39)
[2017-02-12 03:22] LABS: Basophils % 0.5 %; Eosinophils # 0.2 K/mcL (0.0-0.6); Eosinophils % 3.6 %; Hematocrit 31.6 % (37.5-50.1); Hemoglobin 9.2 g/dL (12.9-16.9); Immature Granulocytes % 0.3 % (0-4); Lymphocytes # 1.1 K/mcL (0.6-4.6); Lymphocytes % 16.6 %; Mean Corpuscular HGB Conc 29.1 g/dL (31.6-35.5); Mean Corpuscular Hemoglobin 24.7 pg (28.0-33.3); Mean Corpuscular Volume 84.9 fL (83.0-100.0); Mean Platelet Volume 10.8 fL (9.4-12.4); Monocytes # 0.4 K/mcL (0.0-1.3); Monocytes % 6.9 %; Neutrophils # 4.6 K/mcL (1.6-8.9); Platelet Count 181 K/mcL (140-400); Red Blood Count 3.72 M/mcL (4.19-5.50); Red Cell Distribution Width 17.8 % (11.5-14.5); Segmented Neutrophils % 72.1 %
[2017-02-12 03:51] LABS: Calcium 7.7 mg/dL (8.6-10.3); Magnesium 1.6 mg/dL (1.6-2.6); Phosphorous 2.3 mg/dL (2.7-4.5); Potassium 4.2 mEq/L (3.5-5.1)
[2017-02-12] MEDS: hydrALAZINE 10 MG TABLET PO SCH ×4 (05:32→23:49)
[2017-02-12] MEDS: BuPROPion XL (24 HR) 150 MG TABLET PO SCH (08:06)
[2017-02-12] MEDS: Spironolactone 25 MG TABLET PO SCH (08:07)
[2017-02-12] MEDS: amLODIPine 5 MG TABLET PO SCH (08:08)
[2017-02-12] MEDS: Furosemide 40 MG/4 ML VIAL IVP SCH ×2 (08:08→20:40)
[2017-02-12] MEDS: Metoprolol XL (24 HR) Succ 50 MG TAB.ER.24H PO SCH (08:08)
[2017-02-12] MEDS: cefTRIAXone 1,000 MG in Water for inj. (sterile) 10 ML IVP SCH (08:08)
--- NOTE | 2017-02-12 11:09 | Cardiology Consult Note ---
Addendum entered and electronically signed by Devon Briscoe CNP 02/12/17 11:21: Given fluctuating renal function, often having creatinine clearance <60, recommend reduced Xarelto at 15mg daily. Original Note: <Devon Briscoe - Last Filed: 02/12/17 11:07> Date of Encounter: 02/12/17 Time of Encounter: 11:07 Assessment and Plan (1) Elevated troponin Current Visit: Yes Status: Acute Troponin 0.08, then negative, in setting of CKD, diastolic CHF, A-Fib, cellulitis. Suspect secondary to demand ischemic, nondiagnostic for ACS. Pt denies chest pain. Echo 12/13/16 EF 55%, no significant valvular dysfunction. EKG no ischemic changes. Suspect sign off once seen and evaluated by Dr. Meier. Currently on heparin gtt. Chronic anemia within baseline range. Transition back to PO Xarelto this evening. No further cardiac work-up warranted as intpt. Would benefit from outpt stress test given risk factors for CAD. Will coordinate outpt follow-up. (2) Atrial fibrillation Current Visit: Yes Status: Chronic Known A-Fib, rate controlled on BB. Anticoagulated on Xarelto. Qualifiers: Atrial fibrillation type: unspecified Qualified Code(s): I48.91 - Unspecified atrial fibrillation (3) CHF (congestive heart failure) Current Visit: Yes Status: Chronic BNP 284, CXR mild vascular congestion. Admits to excess Na intake. Discussed Na and fluid restriction. Agree with IV diuresis 40mg IV Lasix BID. Recommend strict I/Os, Na and fluid restriction, daily weights. Qualifiers: Congestive heart failure type: diastolic Congestive heart failure chronicity: acute on chronic Qualified Code(s): I50.33 - Acute on chronic diastolic (congestive) heart failure Discussion w patient/family: The assessment and plan as outlined above was discussed with the patient and/or family members who expressed understanding and agreement. All questions were answered. Thank you for involving us in the care of your patient. Please call with any questions. I will discuss all the above with Dr. Meier and make changes as necessary. History of Present Illness Consult date: 02/12/17 Requesting physician: Brian Lama Consult reason: elevated troponin, chf Chief complaint: dyspnea, lower extremity edema History of present illness: Mr. Ramirez is a 66 year old male with PMH of a-fib on Toprol and Xarelto, DM2 insulin-dependent hx non-compliance, HLD, CKD III, diastolic CHF, recent poorly healing LLE cellulitis, presents with shortness of breath and ulceration of LLE since discharge from SNF 5 days ago. Troponin initially 0.08, then negative. BNP 284. Pt reports dyspnea has been intermittent over the past 2 months. VQ scan resulted as low risk for PE. He denies chest pain. Admits to excess salt intake at home. Echo 12/13/16 EF 55%, no significant valvular dysfunction. Past Med Surg Social Fam HX - Past Medical History Medical history: atrial fibrillation, CHF, diabetes, hyperlipidemia, hypertension Psychiatric history: no psych history - Past Surgical History Surgical History: appendectomy - Social History Smoking Status: Never smoker Smokeless Tobacco Status: No Alcohol use: none Drug use: none - Family History Mother Living Status: Father Living Status: Hx Family Cancer: Yes Medications and Allergies Atorvastatin [Lipitor] 40 mg PO HS 03/20/15 [History] Bupropion HCl [Wellbutrin Xl] 300 mg PO DAILY 03/20/15 [History] Metoprolol XL (24 HR) Succ [Toprol Xl] 150 mg PO DAILY 03/20/15 [History] Oxybutynin Chloride [Ditropan Xl] 10 mg PO DAILY 03/20/15 [History] Rivaroxaban [Xarelto] 20 mg PO DAILY 03/20/15 [History] Tamsulosin [Flomax] 0.4 mg PO DAILY 03/20/15 [History] Amlodipine Besylate 10 mg PO DAILY 12/12/16 [History] Ferrous Sulfate 325 mg PO BIDWM tablet 12/23/16 [Rx] Furosemide [Lasix] 40 mg PO BIDDIURETIC tablet 12/23/16 [Rx] Spironolactone [Aldactone] 12.5 mg PO DAILY tablet 12/23/16 [Rx] hydrALAZINE [HydrALAZINE] 10 mg PO Q6HR tablet 12/23/16 [Rx] Insulin DETEMIR [Levemir] 34 unit SQ BID 01/17/17 [History] Insulin LISPRO [HumaLOG] 8 - 10 units SQ TIDWM 01/17/17 [History] 3 Allergy/AdvReac Type Severity Reaction Status Date / Time No Known Allergies Allergy Verified 02/11/17 16:08 All Systems Review: A 10-system review of systems was performed and is negative for pertinent findings except as documented above in the HPI. - Cardiovascular Cardiovascular: as per HPI, dyspnea at rest, dyspnea on exertion, leg edema - Respiratory Respiratory: dyspnea Physical Examination Vital Signs, Last 4 Hours Temp Pulse Resp BP Pulse Ox 02/12/17 10:36 97.6 F 63 14 131/79 94 Vital Signs Temp Pulse Resp BP Pulse Ox 02/12/17 10:36 97.6 F 63 14 131/79 94 02/12/17 06:41 97.9 F 74 14 134/93 98 02/12/17 04:58 97.4 F L 71 22 125/83 92 02/12/17 00:17 97.9 F 71 24 148/81 94 02/11/17 20:55 97.5 F L 78 22 155/96 93 02/11/17 20:31 16 155/97 02/11/17 19:49 90 24 146/90 93 02/11/17 16:09 94 02/11/17 16:06 98.0 F 79 22 169/93 74 Intake and Output 02/11/17 02/12/17 02/12/17 23:59 07:59 15:59 Intake Total 326 / 326 240 / 240 Output Total 745 / 745 300 / 300 Balance -419 / -419 -60 / -60 Intake: IV Fluids 276 / 276 Heparin 25,000 UNIT/500 ML D5W 276 / 276 25,000 unit In 500 ml @ 14 UNIT /KG/HR 39.928 mls/hr IVC . [id number] [facility] Rx#:[id number] Rocephin 1,000 MG In Water for inj. (sterile) 10 ML @ 300 mls/ hr IVP ONCE ONE Rx#:[id number] Oral 0 / 0 50 / 50 240 / 240 Output: Urine 745 / 745 300 / 300 Other: Meal Breakfast Percent of Meal Consumed 100% # Voids 0 0 Weight 142.6 kg 146.2 kg Blood Glucose* 262 273 194 Patient Weight 02/12/17 23:59 Weight 146.2 kg General: Conversant, No Apparent Distress HEENT: Atraumatic, Normocephaly, Mucus Membranes Moist Neck: Normal carotid pulses Cardiac: Other (irregularly irregular) Lungs: Other (diminished) Neuro: Alert and responsive, No focal deficits noted Abdomen: Soft, Non-Tender Skin: No rashes noted on visualized skin Musculoskeletal: No Chest Wall Tenderness Extremities: Other (2+ BLE edema, erythematous) Results 02/12/17 02:56 02/12/17 02:56 Lab Results 02/12/17 02/12/17 02/12/17 02:56 02:56 02:56 WBC 6.4 Hgb 9.2 L Hct 31.6 L Plt Count 181 APTT 47.5 H Sodium Potassium Chloride Carbon Dioxide BUN Creatinine Glucose Calcium Magnesium Troponin I < 0.03 02/12/17 02/12/17 02/12/17 02:56 05:49 08:54 WBC Hgb Hct Plt Count APTT 59.6 H Sodium 142 Potassium 4.2 Chloride 111 H Carbon Dioxide 25 BUN 25 H Creatinine 1.53 H Glucose 257 H Calcium 7.7 L Magnesium 1.6 Troponin I < 0.03 Vital Signs Temp Pulse Resp BP Pulse Ox 02/12/17 10:36 97.6 F 63 14 131/79 94 02/12/17 06:41 97.9 F 74 14 134/93 98 02/12/17 04:58 97.4 F L 71 22 125/83 92 02/12/17 00:17 97.9 F 71 24 148/81 94 02/11/17 20:55 97.5 F L 78 22 155/96 93 02/11/17 20:31 16 155/97 02/11/17 19:49 90 24 146/90 93 02/11/17 16:09 94 02/11/17 16:06 98.0 F 79 22 169/93 74 Intake and Output 02/11/17 02/12/17 02/12/17 23:59 07:59 15:59 Intake Total 326 / 326 240 / 240 Output Total 745 / 745 300 / 300 Balance -419 / -419 -60 / -60 Intake: IV Fluids 276 / 276 Heparin 25,000 UNIT/500 ML D5W 276 / 276 25,000 unit In 500 ml @ 14 UNIT /KG/HR 39.928 mls/hr IVC . [id number] [facility] Rx#:[id number] Rocephin 1,000 MG In Water for inj. (sterile) 10 ML @ 300 mls/ hr IVP ONCE ONE Rx#:[id number] Oral 0 / 0 50 / 50 240 / 240 Output: Urine 745 / 745 300 / 300 Other: Meal Breakfast Percent of Meal Consumed 100% # Voids 0 0 Weight 142.6 kg 146.2 kg Blood Glucose* 262 273 194 Patient Weight 02/12/17 23:59 Weight 146.2 kg Impressions Chest X-Ray 02/11/17 16:20 IMPRESSION: 1. Unchanged cardiomegaly with mild pulmonary vascular congestion. D/ / Jhonny Lala MD / Jhonny Lala MD Interpreting Provider: Jhonny Lala MD Pulmonary Perfusion Imaging 02/11/17 17:33 IMPRESSION: Low Probability for Pulmonary Embolus. D/ / Steve Lisa MD / Steve Lisa MD Interpreting Provider: Steve Lisa MD Active Medications Amlodipine Besylate (Norvasc) 10 mg PO DAILY [facility] Stop: 08/14/17 09:01 Last Admin: 02/12/17 08:08 Dose: 10 mg Atorvastatin Calcium (Lipitor) 40 mg PO HS [facility] Stop: 08/14/17 01:31 Last Admin: 02/12/17 02:42 Dose: 40 mg Bupropion HCl (Wellbutrin Xl) 300 mg PO DAILY [facility] Stop: 08/14/17 09:01 Last Admin: 02/12/17 08:06 Dose: 300 mg Dextrose/Water (Dextrose 50% (Syg)) 25 ml IVP AD PRN PRN Reason: Hypoglycemia Stop: 08/14/17 01:30 Ferrous Sulfate (Ferrous Sulfate) 325 mg PO BIDWM [facility] Stop: 08/14/17 08:01 Last Admin: 02/12/17 08:07 Dose: 325 mg Furosemide (Lasix) 40 mg IVP BID [facility] Stop: 08/14/17 09:01 Last Admin: 02/12/17 08:08 Dose: 40 mg Glucagon (Glucagen) 1 mg IM ONCE PRN PRN Reason: Hypoglycemia Stop: 08/14/17 01:30 Glucose (Gluctose) 15 gm PO ONCE PRN PRN Reason: Hypoglycemia Stop: 08/14/17 01:30 Glucose (Gluctose) 30 gm PO ONCE PRN PRN Reason: Hypoglycemia Stop: 08/14/17 01:30 Hydralazine HCl (Hydralazine) 10 mg PO Q6HR [facility] Stop: 08/14/17 06:01 Last Admin: 02/12/17 05:32 Dose: 10 mg Heparin Sodium/Dextrose (Heparin 25,000 Unit/500 Ml D5w) 25,000 unit in 500 mls @ 39.928 mls/hr IVC .[id number] CHRISTA; 14 UNIT/KG/HR PRN Reason: Protocol Stop: 08/13/17 21:46 Last Titration: 02/12/17 06:24 Dose: 14 unit/kg/hr, 39.928 mls/hr Dextrose (Dextrose 5%) 1,000 mls @ 100 mls/hr IVC .Q10H PRN PRN Reason: HYPOGLYCEMIA Stop: 08/14/17 01:30 Ceftriaxone Sodium 1,000 mg/ (Sterile Water) 10 mls @ 300 mls/hr IVP DAILY [facility] Stop: 08/14/17 09:01 Last Admin: 02/12/17 08:08 Dose: 300 mls/hr Linezolid/Dextrose (Zyvox Premix 600mg/300ml) 600 mg in 300 mls @ 150 mls/hr IVPB Q12HR [facility] Stop: 08/14/17 06:01 Last Admin: 02/12/17 05:31 Dose: 150 mls/hr Insulin Human Lispro (Humalog) 0 units SQ HS [facility] PRN Reason: Protocol Stop: 08/14/17 01:31 Last Admin: 02/12/17 02:42 Dose: 4 units Insulin Human Lispro (Humalog) 0 units SQ TIDAC [facility] PRN Reason: Protocol Stop: 08/14/17 07:31 Last Admin: 02/12/17 08:26 Dose: 8 units Metoprolol Succinate (Toprol Xl) 150 mg PO DAILY [facility] Stop: 08/14/17 09:01 Last Admin: 02/12/17 08:08 Dose: 150 mg Naloxone HCl (Narcan) 0.4 mg IVP Q2MIN PRN PRN Reason: Opioid Reversal Stop: 08/14/17 01:25 Ondansetron HCl (Zofran Odt) 4 mg SL Q8HR PRN PRN Reason: Nausea And Vomiting Stop: 08/14/17 01:25 Oxybutynin Chloride (Ditropan) 5 mg PO BID [facility] Stop: 08/14/17 01:32 Last Admin: 02/12/17 08:08 Dose: 5 mg Spironolactone (Aldactone) 12.5 mg PO DAILY [facility] Stop: 08/14/17 09:01 Last Admin: 02/12/17 08:07 Dose: 12.5 mg Tamsulosin HCl (Flomax) 0.4 mg PO DAILY [facility] PRN Reason: Protocol Stop: 08/14/17 09:01 Last Admin: 02/12/17 08:26 Dose: 0.4 mg - Imaging and Cardiology Chest Xray: report reviewed Echo: report reviewed - EKG Interpretation EKG results cardiology: personally reviewed (A-Fib rate 75), other (12 hr tele AVG HR 69, A-Fib) Consult Discharge Plan - Plan Referrals: NONE,PCP [Primary Care Provider] - <Pearl Meier - Last Filed: 02/12/17 11:38> Date of Encounter: 02/12/17 - Attending Attestation I examined this patient and my medical decision-making was reviewed with the SCHOOL COUNSELOR. I agree with the documented findings, disposition and treatment plan as described. Mr. Ramirez presents with dyspnea, worsening LE edema and cellulitis of his lower extremity. Troponin initially 0.08, then negative. V/Q scan low probability. CXR with mild vascular congestion. Denies chest pain. ECG demonstrates no concerns for ischemic changes. Recent echo demonstrated normal LV systolic function. Troponin is not diagnostic for ACS. Recommend stopping heparin gtt and transitioning back to xarelto this evening for atrial fibrillation. Would consider outpatient stress testing. Also agree with trial of IV diuresis, strict I/O's, Na/fluid restriction and daily weights. We will sign off. Thank you for allowing us to participate in this patient's care. Please call with questions. Assessment and Plan Discussion w patient/family: The assessment and plan as outlined above was discussed with the patient and/or family members who expressed understanding and agreement. All questions were answered. Thank you for involving us in the care of your patient. Please call with any questions. History of Present Illness History of present illness: Mr. Ramirez is a 66 year old male All Systems Review: A 10-system review of systems was performed and is negative for pertinent findings except as documented above in the HPI. Physical Examination Vital Signs, Last 4 Hours Temp Pulse Resp BP Pulse Ox 02/12/17 10:36 97.6 F 63 14 131/79 94 Results 02/12/17 02:56 02/12/17 02:56 Lab Results 02/12/17 02/12/17 02/12/17 02:56 02:56 02:56 WBC 6.4 Hgb 9.2 L Hct 31.6 L Plt Count 181 APTT 47.5 H Sodium Potassium Chloride Carbon Dioxide BUN Creatinine Glucose Calcium Magnesium Troponin I < 0.03 02/12/17 02/12/17 02/12/17 02:56 05:49 08:54 WBC Hgb Hct Plt Count APTT 59.6 H Sodium 142 Potassium 4.2 Chloride 111 H Carbon Dioxide 25 BUN 25 H Creatinine 1.53 H Glucose 257 H Calcium 7.7 L Magnesium 1.6 Troponin I < 0.03
--- NOTE | 2017-02-12 16:24 | Event Note ---
Date of Encounter: 02/12/17 Time of Encounter: 11:00 1.Left lower extremity cellulitis -Continue IV linezolid and ceftriaxone 2.Acute on chronic diastolic heart failure -Continue IV diuresis with Lasix 40 mg twice daily 3.Elevated troponin -Cardiology consulted and suspects secondary to demand ischemia recommends to discontinue heparin drip this evening and to convert to Xarelto
[2017-02-12] MEDS: *HR* Rivaroxaban 15 MG TABLET PO SCH (17:18)
[2017-02-13] MEDS: Spironolactone 25 MG TABLET PO SCH (10:39)
[2017-02-13] MEDS: BuPROPion XL (24 HR) 150 MG TABLET PO SCH (10:40)
[2017-02-13] MEDS: hydrALAZINE 10 MG TABLET PO SCH ×3 (10:40→18:26)
[2017-02-13] MEDS: Metoprolol XL (24 HR) Succ 50 MG TAB.ER.24H PO SCH (10:40)
[2017-02-13] MEDS: amLODIPine 5 MG TABLET PO SCH (10:41)
[2017-02-13] MEDS: Furosemide 40 MG/4 ML VIAL IVP SCH ×2 (10:42→22:43)
[2017-02-13] MEDS: cefTRIAXone 1,000 MG in Water for inj. (sterile) 10 ML IVP SCH (10:42)
[2017-02-13] MEDS: Insulin LISPRO 300 UNITS/3 ML VIAL SQ SCH ×4 (10:43→22:43)
--- NOTE | 2017-02-13 15:29 | Internal Med Progress Note ---
Date of Encounter: 02/13/17 Time of Encounter: 09:00 - Assessment and plan (1) Cellulitis of left leg Current Visit: Yes Status: Acute Assessment and plan: -Patient with 2 ulcerated plaque lesions on the left lower extremity. -Continue Linezolid (DM2 longstanding/uncontrolled MRSA coverage) and Rocephin due to recent history S. agalactiae -Wound care consulted and appreciate recommendations. (2) Heart failure, diastolic, with acute decompensation Current Visit: No Status: Acute Assessment and plan: -Patient clinically volume overloaded with elevated BNP and cardiomegaly with mild pulmonary vascular congestion on chest x-ray. (3) SHANE (acute kidney injury) Current Visit: No Status: Acute Assessment and plan: -Will continue to monitor creatinine which will most likely stay elevated secondary to IV diuresis for heart failure. (4) Poorly controlled diabetes mellitus Current Visit: No Status: Chronic Assessment and plan: -Relatively controlled; continue long-acting insulin. (5) Atrial fibrillation Current Visit: Yes Status: Chronic Assessment and plan: -Rate controlled on beta wade. -Continue anticoagulation with Xarelto. Qualifiers: Atrial fibrillation type: chronic Qualified Code(s): I48.2 - Chronic atrial fibrillation (6) HTN (hypertension) Current Visit: No Status: Chronic Assessment and plan: -Controlled; continue home medications. Qualifiers: Hypertension type: essential hypertension Qualified Code(s): I10 - Essential (primary) hypertension (7) Morbid obesity Current Visit: No Status: Chronic Assessment and plan: -Lifestyle modifications. (8) DVT prophylaxis Current Visit: No Status: Acute Assessment and plan: -On Xarelto - Subjective Interval history: Patient continues to be volume overloaded on exam secondary to decompensation of heart failure - Constitutional Vitals: Temp Pulse Resp BP Pulse Ox 97.7 F 69 18 140/86 98 02/12/17 15:13 02/13/17 07:00 02/13/17 07:00 02/13/17 07:00 02/13/17 07:00 General appearance: Present: A&O X 3, no acute distress - Respiratory Respiratory exam: Present: CTAB. Absent: accessory muscle use, rales, rhonchi, wheezes - Cardiovascular Cardiovascular exam: Present: RRR, +S1, +S2. Absent: diastolic murmur, gallop, rubs, systolic murmur - Expanded Lower Extremities Exam Lower Leg exam: Present: swelling Ankle exam: Present: swelling Foot/Toe exam: Present: swelling - Expanded Skin Exam Description of rash: Present: discharge (2 erosive-like lesions on left lower extremity) Internal Medicine: Result - Labs CBC & Chem 7: 02/12/17 02:56 02/12/17 02:56 - ABG Interpretation ABG results: PT/INR, D-dimer PT 17.2 Seconds (9.4-12.1) H 02/11/17 21:02 Consult Discharge Plan - Plan Referrals: NONE,PCP [Primary Care Provider] -
[2017-02-13] MEDS: *HR* Rivaroxaban 15 MG TABLET PO SCH (18:26)
[2017-02-14] MEDS: hydrALAZINE 10 MG TABLET PO SCH ×4 (01:11→16:50)
[2017-02-14 01:35] LABS: Basophils % 0.6 %; Eosinophils # 0.2 K/mcL (0.0-0.6); Eosinophils % 3.2 %; Hematocrit 31.6 % (37.5-50.1); Hemoglobin 9.4 g/dL (12.9-16.9); Immature Granulocytes % 0.2 % (0-4); Lymphocytes # 1.1 K/mcL (0.6-4.6); Lymphocytes % 20.3 %; Mean Corpuscular HGB Conc 29.7 g/dL (31.6-35.5); Mean Corpuscular Hemoglobin 24.9 pg (28.0-33.3); Mean Corpuscular Volume 83.6 fL (83.0-100.0); Mean Platelet Volume 10.2 fL (9.4-12.4); Monocytes # 0.4 K/mcL (0.0-1.3); Monocytes % 7.2 %; Neutrophils # 3.6 K/mcL (1.6-8.9); Platelet Count 181 K/mcL (140-400); Red Blood Count 3.78 M/mcL (4.19-5.50); Red Cell Distribution Width 17.6 % (11.5-14.5); Segmented Neutrophils % 68.5 %
[2017-02-14 01:52] LABS: Calcium 7.7 mg/dL (8.6-10.3); Potassium 4.3 mEq/L (3.5-5.1)
[2017-02-14] MEDS: Spironolactone 25 MG TABLET PO SCH (08:28)
[2017-02-14] MEDS: cefTRIAXone 1,000 MG in Water for inj. (sterile) 10 ML IVP SCH (08:28)
[2017-02-14] MEDS: Metoprolol XL (24 HR) Succ 50 MG TAB.ER.24H PO SCH (08:29)
[2017-02-14] MEDS: Furosemide 40 MG/4 ML VIAL IVP SCH ×2 (08:29→21:52)
[2017-02-14] MEDS: BuPROPion XL (24 HR) 150 MG TABLET PO SCH (08:29)
[2017-02-14] MEDS: amLODIPine 5 MG TABLET PO SCH (08:29)
[2017-02-14] MEDS: Insulin LISPRO 300 UNITS/3 ML VIAL SQ SCH ×4 (08:31→21:57)
[2017-02-14] MEDS: *HR* Rivaroxaban 15 MG TABLET PO SCH (16:50)
--- NOTE | 2017-02-14 16:50 | Internal Med Progress Note ---
Date of Encounter: 02/14/17 Time of Encounter: 11:00 - Assessment and plan (1) Cellulitis of left leg Current Visit: Yes Status: Acute Assessment and plan: -Patient with 2 ulcerated plaque lesions on the left lower extremity. -Continue Linezolid (DM2 longstanding/uncontrolled MRSA coverage) and Rocephin due to recent history S. agalactiae -Wound care consulted and appreciate recommendations. (2) Heart failure, diastolic, with acute decompensation Current Visit: No Status: Acute Assessment and plan: -Patient clinically volume overloaded with elevated BNP and cardiomegaly with mild pulmonary vascular congestion on chest x-ray. -Will continue IV diuresis (3) SHANE (acute kidney injury) Current Visit: No Status: Acute Assessment and plan: -Will continue to monitor creatinine which will most likely stay elevated secondary to IV diuresis for heart failure. (4) Poorly controlled diabetes mellitus Current Visit: No Status: Chronic Assessment and plan: -Relatively controlled; continue long-acting insulin. (5) Atrial fibrillation Current Visit: Yes Status: Chronic Assessment and plan: -Rate controlled on beta wade. -Continue anticoagulation with Xarelto. Qualifiers: Atrial fibrillation type: chronic Qualified Code(s): I48.2 - Chronic atrial fibrillation (6) HTN (hypertension) Current Visit: No Status: Chronic Assessment and plan: -Controlled; continue home medications. Qualifiers: Hypertension type: essential hypertension Qualified Code(s): I10 - Essential (primary) hypertension (7) Morbid obesity Current Visit: No Status: Chronic Assessment and plan: -Lifestyle modifications. (8) DVT prophylaxis Current Visit: No Status: Acute Assessment and plan: -On Xarelto - Subjective Interval history: Patient continues to be volume overloaded on exam secondary to decompensation of heart failure - Constitutional Vitals: Temp Pulse Resp BP Pulse Ox 97.7 F 65 14 132/73 98 02/14/17 14:54 02/14/17 14:54 02/14/17 14:54 02/14/17 14:54 02/14/17 14:54 General appearance: Present: A&O X 3, no acute distress - Respiratory Respiratory exam: Present: CTAB. Absent: accessory muscle use, rales, rhonchi, wheezes - Cardiovascular Cardiovascular exam: Present: RRR, +S1, +S2. Absent: diastolic murmur, gallop, rubs, systolic murmur Internal Medicine: Result - Labs CBC & Chem 7: 02/14/17 01:24 02/14/17 01:24 Labs: Short CBC 02/14/17 Range/Units 01:24 WBC 5.3 (4.3-11.1) K/mcL Hgb 9.4 L (12.9-16.9) g/dL Hct 31.6 L (37.5-50.1) % Plt Count 181 (140-400) K/mcL Neutrophils # 3.6 (1.6-8.9) K/mcL BMP 02/14/17 01:24 Sodium 138 Potassium 4.3 Chloride 106 Carbon Dioxide 26 BUN 36 H Creatinine 2.09 H Glucose 267 H Calcium 7.7 L - ABG Interpretation ABG results: PT/INR, D-dimer PT 17.2 Seconds (9.4-12.1) H 02/11/17 21:02 Consult Discharge Plan - Plan Referrals: NONE,PCP [Primary Care Provider] -
[2017-02-15] MEDS: hydrALAZINE 10 MG TABLET PO SCH ×4 (00:48→18:12)
[2017-02-15] MEDS: Spironolactone 25 MG TABLET PO SCH (08:55)
[2017-02-15] MEDS: Metoprolol XL (24 HR) Succ 50 MG TAB.ER.24H PO SCH (08:56)
[2017-02-15] MEDS: BuPROPion XL (24 HR) 150 MG TABLET PO SCH (08:56)
[2017-02-15] MEDS: amLODIPine 5 MG TABLET PO SCH (08:56)
[2017-02-15] MEDS: cefTRIAXone 1,000 MG in Water for inj. (sterile) 10 ML IVP SCH (08:56)
[2017-02-15] MEDS: Furosemide 40 MG/4 ML VIAL IVP SCH ×2 (08:57→23:17)
[2017-02-15] MEDS: Insulin LISPRO 300 UNITS/3 ML VIAL SQ SCH ×4 (08:57→23:17)
--- NOTE | 2017-02-15 14:57 | Electrocardiograph Report ---
[place] [id number] Test Date: 2017-02-11 Pat Name: Michael Ramirez Department: 103 Room: 2N2 Gender: M Copy Manager: TMLina : 1950 Requested By: Yovanny Booth Order Number: [id number] Reading MD: Ten Biswas MD Measurements Intervals [place] Rate: 75 P: MN: 0 QRS: 32 QRSD: 92 T: 28 QT: 395 QTc: 425 Interpretive Statements ATRIAL FIBRILLATION LOW QRS VOLTAGE Poor R wave progression Electronically Signed On 02-15-2017 14:55:53 EST by Ten Biswas MD
--- NOTE | 2017-02-15 16:56 | Internal Med Progress Note ---
Date of Encounter: 02/15/17 Time of Encounter: 16:54 - Assessment and plan (1) Atrial fibrillation Current Visit: Yes Status: Chronic Assessment and plan: -Rate controlled on beta wade. -Continue anticoagulation with Xarelto. Qualifiers: Atrial fibrillation type: chronic Qualified Code(s): I48.2 - Chronic atrial fibrillation (2) Poorly controlled diabetes mellitus Current Visit: No Status: Chronic Assessment and plan: fairly controlled cont ISS + also will add Levemir 30 U BID (3) Non compliance w medication regimen Current Visit: Yes Status: Chronic (4) Morbid obesity Current Visit: No Status: Chronic Assessment and plan: -Lifestyle modifications. (5) Heart failure, diastolic, with acute decompensation Current Visit: No Status: Acute Assessment and plan: -Patient clinically volume overloaded with elevated BNP and cardiomegaly with mild pulmonary vascular congestion on chest x-ray 2 D Echo from 12/07 showed preserved LVEF 55%, indeterminate LV diastolic dysfunction Will continue IV diuresis resumed other home meds (6) Cellulitis of left leg Current Visit: Yes Status: Acute Assessment and plan: -Patient with 2 ulcerated plaque lesions on the left lower extremity. - his wound cx growing MRSA.. and h/o Strep agalaectiae in the past.. so changed abx to Vancomycin -Wound care consulted and appreciate recommendations. (7) Elevated troponin Current Visit: Yes Status: Acute Assessment and plan: resolved mostly due to chf exacerbation - Subjective Interval history: Mr. Ramirez is a 66 year old male with PMH of a-fib on Toprol and Xarelto, DM2 insulin-dependent hx non-compliance, HLD, CKD III, diastolic CHF, recent poorly healing LLE cellulitis, presents with shortness of breath and ulceration of LLE since discharge from SNF 5 days ago. {Pt was admitted in the hospital and started him on empirical abx Zyvox and Rocephin, also started him on IV diuresis. Pt stated he is feeling little better today. Denied any CP / SOB. Still has swelling and erythema on both legs , with open wound over left leg. - Constitutional Vitals: Temp Pulse Resp BP Pulse Ox 97.4 F L 73 20 131/73 97 02/15/17 11:00 02/15/17 11:00 02/15/17 11:00 02/15/17 11:00 02/15/17 11:00 General appearance: Present: A&O X 3, no acute distress - Head Head exam: Present: atraumatic, normal inspection - Neck Neck exam general surgery: Present: supple - Respiratory Respiratory exam: Present: decreased breath sounds, rales (+), wheezes (mild). Absent: respiratory distress, rhonchi - Cardiovascular Cardiovascular exam: Present: irregular rhythm, +S1, +S2 - GI/Abdominal GI/Abdominal exam: Present: distended, normal bowel sounds, soft. Absent: rebound, rigid, tenderness - Extremities Exam Extremities exam: Present: pedal edema (2+). Absent: calf tenderness, tenderness - Back Exam Back exam: Absent: CVA tenderness (L), CVA tenderness (R) - Psychiatric Psychiatric exam: Present: normal affect, normal mood Internal Medicine: Result - Labs CBC & Chem 7: 02/14/17 01:24 02/14/17 01:24 - ABG Interpretation ABG results: PT/INR, D-dimer PT 17.2 Seconds (9.4-12.1) H 02/11/17 21:02 Consult Discharge Plan - Plan Referrals: NONE,PCP [Primary Care Provider] -
[2017-02-15] MEDS ORDERED: Vancomycin 2,000 MG in D5% in Water 250 ML IVPB SCH (17:00)
[2017-02-15] MEDS ORDERED: Aminoglycoside Consult 1 EACH MC ONE (17:41)
[2017-02-15] MEDS: *HR* Rivaroxaban 15 MG TABLET PO SCH (18:12)
[2017-02-15] MEDS: Silvasorb 44.4 ML TUBE TP SCH (18:19)
[2017-02-15] MEDS: Insulin DETEMIR 100 UNIT/ML X5UNITS SQ SCH (23:18)
[2017-02-16] MEDS ORDERED: Vancomycin 1,750 MG in D5% in Water 500 ML IVPB ONE (00:01)
[2017-02-16] MEDS: hydrALAZINE 10 MG TABLET PO SCH ×3 (01:05→12:07)
[2017-02-16 08:01] LABS: Albumin 3.4 g/dL (3.5-5.7); Albumin/Globulin Ratio 1.1 (1.1-2.2); Basophils % 0.5 %; Bilirubin,Total 0.4 mg/dL (0.3-1.0); Calcium 8.2 mg/dL (8.6-10.3); Eosinophils # 0.3 K/mcL (0.0-0.6); Eosinophils % 4.2 %; Globulin 3.1 g/dL (2.4-3.5); Hematocrit 32.3 % (37.5-50.1); Hemoglobin 9.4 g/dL (12.9-16.9); Immature Granulocytes % 0.3 % (0-4); Lymphocytes # 1.5 K/mcL (0.6-4.6); Lymphocytes % 25.6 %; Magnesium 1.9 mg/dL (1.6-2.6); Mean Corpuscular HGB Conc 29.1 g/dL (31.6-35.5); Mean Corpuscular Hemoglobin 24.4 pg (28.0-33.3); Mean Corpuscular Volume 83.7 fL (83.0-100.0); Mean Platelet Volume 10.4 fL (9.4-12.4); Monocytes # 0.5 K/mcL (0.0-1.3); Monocytes % 8.2 %; Neutrophils # 3.7 K/mcL (1.6-8.9); Platelet Count 192 K/mcL (140-400); Potassium 4.2 mEq/L (3.5-5.1); Red Blood Count 3.86 M/mcL (4.19-5.50); Red Cell Distribution Width 18.3 % (11.5-14.5); Segmented Neutrophils % 61.2 %; Total Protein 6.5 g/dL (6.4-8.9)
[2017-02-16] MEDS: Insulin LISPRO 300 UNITS/3 ML VIAL SQ SCH ×2 (10:10→12:04)
[2017-02-16] MEDS: BuPROPion XL (24 HR) 150 MG TABLET PO SCH (10:12)
[2017-02-16] MEDS: Metoprolol XL (24 HR) Succ 50 MG TAB.ER.24H PO SCH (10:12)
[2017-02-16] MEDS: amLODIPine 5 MG TABLET PO SCH (10:13)
[2017-02-16] MEDS: Furosemide 40 MG/4 ML VIAL IVP SCH (10:14)
[2017-02-16] MEDS: Insulin DETEMIR 100 UNIT/ML X5UNITS SQ SCH (10:18)
[2017-02-16] MEDS: Silvasorb 44.4 ML TUBE TP SCH (11:27)
--- NOTE | 2017-02-16 16:05 | Discharge Summary ---
Date of Encounter: 02/16/17 Time of Encounter: 16:03 - Discharge Diagnosis (1) Heart failure, diastolic, with acute decompensation Priority: Primary Status: Acute (2) Cellulitis of left leg Priority: Primary Status: Acute (3) Elevated troponin Priority: Primary Status: Acute (4) Atrial fibrillation Priority: Secondary Status: Chronic Qualifiers: Atrial fibrillation type: chronic Qualified Code(s): I48.2 - Chronic atrial fibrillation (5) Poorly controlled diabetes mellitus Priority: Secondary Status: Chronic (6) Non compliance w medication regimen Priority: Secondary Status: Chronic (7) Obesity, morbid, BMI 40.0-49.9 Priority: Secondary Status: Chronic - Discharge Medications Prescriptions: Doxycycline 100 mg PO BID 6 Days capsule Home Medications: Atorvastatin [Lipitor] 40 mg PO HS 03/20/15 [History] Bupropion HCl [Wellbutrin Xl] 300 mg PO DAILY 03/20/15 [History] Metoprolol XL (24 HR) Succ [Toprol Xl] 150 mg PO DAILY 03/20/15 [History] Oxybutynin Chloride [Ditropan Xl] 10 mg PO DAILY 03/20/15 [History] Tamsulosin [Flomax] 0.4 mg PO DAILY 03/20/15 [History] Amlodipine Besylate 10 mg PO DAILY 12/12/16 [History] Ferrous Sulfate 325 mg PO BIDWM tablet 12/23/16 [Rx] Furosemide [Lasix] 40 mg PO BIDDIURETIC tablet 12/23/16 [Rx] Insulin DETEMIR [Levemir] 34 unit SQ BID 01/17/17 [History] Insulin LISPRO [HumaLOG] 8 - 10 units SQ TIDWM 01/17/17 [History] Doxycycline 100 mg PO BID 6 Days capsule 02/16/17 [Rx] Rivaroxaban [Xarelto] 15 mg PO 1700 tablet 02/16/17 [Rx] Spironolactone [Aldactone] 25 mg PO DAILY #0 tablet 02/16/17 [Rx] Allergies/Adverse Reactions: 3 Allergy/AdvReac Type Severity Reaction Status Date / Time No Known Allergies Allergy Verified 02/11/17 16:08 Date of admission: 02/12/17 01:24 Primary care physician: PCP NONE Consults: 02/12/17 04:48 Consult to Wound Care [CONS] Routine Reason for Consult: LLE Cellulitis; RLE stage 1 ulcer Call Completed: No 02/13/17 15:14 Consult to Pipe Machine Operator [CONS] Routine Reason for SW Consult: family would like options. please do not call on jabari - Patient Status Disposition: Transfer SNF Condition: Good Overall status at discharge: patient is back to baseline - Discharge Instructions Follow Up With: Roman Shipley DPM [Partnered Physician] - 02/24/17 9:00 am Huan Stark MD [Non-Partnered Physician] - 03/08/17 9:15 am - Diet and Activity Activity: as per physical therapy, increase activity as tolerated Diet: low salt diet Hospital course: Mr. Ramirez is a 66 year old male with PMH of a-fib on Toprol and Xarelto, DM2 insulin-dependent hx non-compliance, HLD, CKD III, diastolic CHF, recent poorly healing LLE cellulites, presents with shortness of breath and ulceration of LLE since discharge from SNF 5 days ago. Pt was admitted in the hospital and started him on empirical abx Zyvox and Rocephin, also started him on IV diuresis for his acute diastolic CHF exacerbation. He does have CKD-3 now his Cr stable and at baseline @ 1.5. His wound cx came back as positive for MRSA susceptible to Doxycycline. So switched him to PO Doxy today and his leg cellulites looks lot better too. Pt stated he is feeling much better today. Denied any CP / SOB. Comfortably resting in the chair. Will d/c him to ECF for supervision care and wound care. - Time Spent with Patient Total time spent providing and/or coordinating discharge services: - Constitutional Vitals: Temp Pulse Resp BP Pulse Ox 97.9 F 89 14 129/61 94 02/16/17 11:06 02/16/17 11:06 02/16/17 11:06 02/16/17 11:06 02/16/17 11:06 General appearance: Present: A&O X 3, no acute distress - Head Head exam: Present: atraumatic, normal inspection - Neck Neck exam general surgery: Present: supple - Respiratory Respiratory exam: Present: decreased breath sounds, wheezes (mild). Absent: rales, respiratory distress, rhonchi - Cardiovascular Cardiovascular exam: Present: irregular rhythm, +S1, +S2. Absent: systolic murmur - GI/Abdominal GI/Abdominal exam: Present: normal bowel sounds, soft. Absent: rebound, rigid, tenderness - Extremities Exam Extremities exam: Present: pedal edema. Absent: calf tenderness, tenderness Additional comments: improving swelling and erythema in both legs - Neurological Exam Neurological exam: Present: alert, oriented X3 - Psychiatric Psychiatric exam: Present: normal affect, normal mood
[2017-02-16 16:19] VITALS: BP 129/73
--- NOTE | 2017-02-16 16:21 | Physician Discharge Referral ---
ExtendedCare Referral Info Transfer To: ECF Provider in Charge after Transfer: PCP Institutional Level of Care: Skilled - Diagnosis (1) Heart failure, diastolic, with acute decompensation Status: Acute (2) Cellulitis of left leg Status: Acute (3) Elevated troponin Status: Acute (4) Atrial fibrillation Status: Chronic (5) Poorly controlled diabetes mellitus Status: Chronic (6) Non compliance w medication regimen Status: Chronic (7) Obesity, morbid, BMI 40.0-49.9 Status: Chronic - Transfer Medications Prescriptions: Doxycycline 100 mg PO BID 6 Days capsule Home Medications: Atorvastatin [Lipitor] 40 mg PO HS 03/20/15 [History] Bupropion HCl [Wellbutrin Xl] 300 mg PO DAILY 03/20/15 [History] Metoprolol XL (24 HR) Succ [Toprol Xl] 150 mg PO DAILY 03/20/15 [History] Oxybutynin Chloride [Ditropan Xl] 10 mg PO DAILY 03/20/15 [History] Tamsulosin [Flomax] 0.4 mg PO DAILY 03/20/15 [History] Amlodipine Besylate 10 mg PO DAILY 12/12/16 [History] Ferrous Sulfate 325 mg PO BIDWM tablet 12/23/16 [Rx] Furosemide [Lasix] 40 mg PO BIDDIURETIC tablet 12/23/16 [Rx] Insulin DETEMIR [Levemir] 34 unit SQ BID 01/17/17 [History] Insulin LISPRO [HumaLOG] 8 - 10 units SQ TIDWM 01/17/17 [History] Doxycycline 100 mg PO BID 6 Days capsule 02/16/17 [Rx] Rivaroxaban [Xarelto] 15 mg PO 1700 tablet 02/16/17 [Rx] Spironolactone [Aldactone] 25 mg PO DAILY #0 tablet 02/16/17 [Rx] Allergies/Adverse Reactions: 3 Allergy/AdvReac Type Severity Reaction Status Date / Time No Known Allergies Allergy Verified 02/11/17 16:08 - Respiratory Orders Smoking Cessation: Smoking cessation has been advised. For more information, call the [place] Tobacco Quit Line at 5-206-TWJP-NOW. CERTIFICATION: I certify that the transfer of the above named patient to an Extended Care Facility is necessary for the continuing treatment of the diagnosis listed. The above information is true and accurate reflection of patient's current condition. Confidential - Redisclosure prohibited without a patient's written consent.
[2017-02-17] MEDS ORDERED: Vancomycin 1,500 MG in D5% in Water 250 ML IVPB SCH (00:01)
== END 2017-02-16 17:42 | DRG 291 ==
LOC: EMEROO 15:59 → 2NENU 15:59
PROVIDERS: ADMIT Student in an Organized Health Care Education/Training Program; ATTEND Hospitalist

== ENCOUNTER 2017-07-14 14:32 | Inpatient (IN) ==
--- NOTE | 2017-07-14 16:04 | Emergency Department Note ---
Disposition Clinical Impression: Acute exacerbation of CHF (congestive heart failure) Disposition: Admitted As Inpatient Condition: Fair Referrals: NONE,PCP [Primary Care Provider] - Forms: ED Satisfaction Letter Time of Disposition: 16:04 General Adult HPI - General Chief complaint: ED Shortness of Breath/Dyspnea Stated complaint: "CHF,cellulitis" Source: patient Mode of arrival: ambulatory Limitations: no limitations Nursing Notes Reviewed: Yes Vital Signs Reviewed: Yes - History of Present Illness HPI Narrative: 67-year-old male presents emergency Department with concerns of difficulty in breathing with exertion and with lying flat as well as increased swelling of the bilateral lower and upper extremities. Patient states that this feels similar to his previous CHF exacerbation. Patient was admitted to the hospital for his previous exacerbation. He was recently discharged for this same issue from a [facility] 1-1/2 months ago. Patient states he has been eating [employer] every day since that time although he has not missed any of his medication doses. Pain Scale: 5 - Related Data Home Medications Medication Instructions Recorded Confirmed Atorvastatin [Lipitor] 40 mg PO HS 03/20/15 02/11/17 Bupropion HCl [Wellbutrin Xl] 300 mg PO DAILY 03/20/15 02/11/17 Metoprolol XL (24 HR) Succ [Toprol 150 mg PO DAILY 03/20/15 02/11/17 Xl] Oxybutynin Chloride [Ditropan Xl] 10 mg PO DAILY 03/20/15 02/11/17 Tamsulosin [Flomax] 0.4 mg PO DAILY 03/20/15 02/18/17 Amlodipine Besylate 10 mg PO DAILY 12/12/16 02/11/17 Insulin DETEMIR [Levemir] 34 unit SQ BID 01/17/17 02/11/17 Insulin LISPRO [HumaLOG] 8 - 10 units SQ TIDWM 01/17/17 02/11/17 Previous Rx's Medication Instructions Recorded Ferrous Sulfate 325 mg PO BIDWM tablet 12/23/16 Furosemide [Lasix] 40 mg PO BIDDIURETIC tablet 12/23/16 Doxycycline 100 mg PO BID 6 Days capsule 02/16/17 Rivaroxaban [Xarelto] 15 mg PO 1700 tablet 02/16/17 Spironolactone [Aldactone] 25 mg PO DAILY #0 tablet 02/16/17 Amoxicillin/Clavulanate [Augmentin] 875 mg PO BIDWM #14 tablet 03/29/17 Allergies Allergy/AdvReac Type Severity Reaction Status Date / Time No Known Allergies Allergy Verified 02/18/17 13:53 All systems ED: reviewed and negative except as stated. Review of Systems: As Per HPI Past Medical History - Past Medical History Attestation: Yes The following information was validated with the patient. Source: patient Medical history: Reports: atrial fibrillation, CHF, DVT, diabetes, hyperlipidemia, hypertension, other Surgical history: Reports: appendectomy, orthopedic, other Psychiatric history: Reports: no psych history - Social History Smoking Status: Former smoker Smokeless Tobacco Status: No Alcohol use: Reports: none Drug use: Reports: none Physical Exam General: Alert and in no acute distress Skin: Warm, dry, intact Head: Normocephalic and atraumatic Neck: Supple, trachea midline and no tenderness Cardiovascular: RRR, no murmur, normal perfusion Respiratory: Rales present bilaterally. no wheezing, cough, or respiratory distress. Patient satting 91% during conversation. Musculoskeletal: Normal strength, no tenderness, +3 swelling in the bilateral lower extremity. +1 swelling in the upper extremities bilaterally. GI: Soft, nontender, nondistended. Bowel sounds present Neuro: A&O to person, place, time and situation. No focal deficits noted on exam Psychiatric: cooperative and appropriate mood and affect. - General General appearance: alert Course Vital Signs Temperature 98.1 F 07/14/17 15:03 Pulse Rate 98 07/14/17 15:03 Respiratory Rate 22 07/14/17 15:03 Blood Pressure 164/77 07/14/17 15:03 O2 Sat by Pulse Oximetry 93 07/14/17 15:03 Temperature 98.1 F 07/14/17 15:03 Pulse Rate 98 07/14/17 15:03 Respiratory Rate 22 07/14/17 15:03 Blood Pressure 164/77 07/14/17 15:03 O2 Sat by Pulse Oximetry 93 07/14/17 15:03 Oxygen Delivery Oxygen Delivery Room Air Medical Decision Making - MDM Narrative Medical decision making narrative: 67-year-old male with likely acute CHF exacerbation. Laboratory evaluation shows elevated BNP and chest x-ray shows vascular congestion. He will be admitted to the hospital for further care and evaluation. He was given a dose of Lasix in the emergency department. No critical care time on this patient. - Medical Records Medical records reviewed: Yes I reviewed the patient's medical records. - Lab Data Lab results reviewed: Yes I reviewed the patient's lab results. - EKG Data EKG #1 EKG attestation: Yes I reviewed and interpreted this EKG. EKG results narrative: Atrial fibrillation with a rate of 97 with PVCs without evidence of STEMI.
[2017-07-14 16:23] LABS: Basophils % 0.6 %; Eosinophils # 0.2 K/mcL (0.0-0.6); Eosinophils % 3.6 %; Hematocrit 30.1 % (37.5-50.1); Hemoglobin 9.2 g/dL (12.9-16.9); Immature Granulocytes % 0.5 % (0-4); Lymphocytes # 0.8 K/mcL (0.6-4.6); Lymphocytes % 11.3 %; Mean Corpuscular HGB Conc 30.6 g/dL (31.6-35.5); Mean Corpuscular Hemoglobin 27.1 pg (28.0-33.3); Mean Corpuscular Volume 88.5 fL (83.0-100.0); Mean Platelet Volume 9.3 fL (9.4-12.4); Monocytes # 0.6 K/mcL (0.0-1.3); Monocytes % 8.3 %; Platelet Count 203 K/mcL (140-400); Red Cell Distribution Width 17.4 % (11.5-14.5); Segmented Neutrophils % 75.7 %
[2017-07-14 16:29] LABS: INR 1.7
[2017-07-14 16:31] LABS: Activated Partial Thrombo Time 46.2 Seconds (26.0-36.0)
[2017-07-14 16:45] LABS: Troponin I < 0.03 ng/mL (< 0.04)
[2017-07-14 16:46] LABS: Alanine Aminotransferase 9 Units/L (7-52); Albumin 3.4 g/dL (3.5-5.7); Albumin/Globulin Ratio 1.1 (1.1-2.2); Alkaline Phosphatase 107 Units/L (34-104); Aspartate Amino Transferase 9 Units/L (13-39); BUN/Creatinine Ratio 17 (6-26); Bilirubin,Direct 0.1 mg/dL (0.0-0.2); Bilirubin,Indirect 0.2 mg/dL (0.0-1.2); Bilirubin,Total 0.3 mg/dL (0.3-1.0); Blood Urea Nitrogen 27 mg/dL (8-23); Calcium 8.6 mg/dL (8.6-10.3); Carbon Dioxide 28 mEq/L (23-29); Chloride 107 mEq/L (98-107); Globulin 3.1 g/dL (2.4-3.5); Glucose 203 mg/dL (70-105); Osmolality,Calculated 303 (280-300); Potassium 4.4 mEq/L (3.5-5.1); Sodium 141 mEq/L (136-145); Total Protein 6.5 g/dL (6.4-8.9); eGFR For African Americans 54 (> 60); eGFR For Non-African Americans 45 (> 60)
[2017-07-14] MEDS ORDERED: Furosemide 40 MG/4 ML VIAL IVP ONE (17:05)
[2017-07-14] MEDS ORDERED: cephALEXin 250 MG CAPSULE PO ONE (17:06)
[2017-07-14] MEDS ORDERED: Naloxone 0.4 MG/ML INJ IVP PRN (18:56)
[2017-07-14] MEDS ORDERED: *HR* Dextrose 50 % in Water (Syg) 50 ML SYRINGE IVP PRN (19:05)
[2017-07-14] MEDS ORDERED: D5% in Water 1,000 ML IVC PRN (19:05)
[2017-07-14] MEDS ORDERED: Dextrose Gel 15 GM/37.5 ML TUBE PO PRN ×2 (19:05)
--- NOTE | 2017-07-14 19:23 | Internal Med History&Physical ---
<CoralClive - Last Filed: 07/14/17 20:51> Date of Encounter: 07/14/17 Time of Encounter: 18:30 Internal Medicine - H&P: HPI Chief complaint: SOB/Dyspnea Admitted From: Emergency Dept Plans for Post Hospital Care: Home History of present illness: Mr. Ramirez is a 67 year old male w/PMH of atrial fibrillation, CHF, DVT in November 2016, diabetes controlled with insulin, HLD, HTN, chronic anemia, and CK D presents from the ED with chief complaint of shortness of breath and dyspnea over the past 2-3 weeks which has become progressively worse. Patient also reports orthopnea and bilateral pedal edema. Symptoms worsen with exertion. Pt. reports increasing weeping of legs, increased abdominal girth, weakness, and left-sided chest discomfort occasionally. Pt. states that he eats [employer] daily and does not follow a strict diet. Pt. denies recent illness, fever, chills, nausea, vomiting, headache, changes in vision, unusual bleeding, abdominal pain, diarrhea, constipation, dizziness, lightheadedness, presyncope, or syncope. Past Med Surg Social Fam HX - Past Medical History Source: patient, old records reviewed Medical history: atrial fibrillation, CHF, DVT, diabetes, hyperlipidemia, hypertension, other Psychiatric history: no psych history - Past Surgical History Surgical History: appendectomy, orthopedic, other - Social History Smoking Status: Former smoker Packs per day: 1 PPD - Reports quitting 30 years ago Smokeless Tobacco Status: No Alcohol use: none Drug use: none Current living situation: Home, With Family Activity Level: Uses cane/walker Recent Out of Country Travel Within the Last 8 Weeks: No Exposure or Possible Exposure to Illness During Travel: No - Family History Mother Race: Family Member Ethnicity: Non- Living Status: Age at : 75 Cause of : DM complications Hx Family Endocrine Disorder: Yes (DM) Father Race: Family Member Ethnicity: Non- Living Status: Age at : 67 Cause of : Pancreatic cancer Hx Family Cancer: Yes (Pancreatic) Brother Race: Family Member Ethnicity: Non- Living Status: Still Living Hx Family Cancer: Yes Sister Race: Family Member Ethnicity: Non- Living Status: Still Living Hx Family Endocrine Disorder: Yes (DM) Internal Medicine - H&P: Meds Atorvastatin [Lipitor] 40 mg PO HS 03/20/15 [History] Bupropion HCl [Wellbutrin Xl] 300 mg PO DAILY 03/20/15 [History] Metoprolol XL (24 HR) Succ [Toprol Xl] 150 mg PO DAILY 03/20/15 [History] Oxybutynin Chloride [Ditropan Xl] 10 mg PO DAILY 03/20/15 [History] Tamsulosin [Flomax] 0.4 mg PO DAILY 03/20/15 [History] Amlodipine Besylate 10 mg PO DAILY 12/12/16 [History] Insulin DETEMIR [Levemir] 34 unit SQ BID 01/17/17 [History] Insulin LISPRO [HumaLOG] 8 - 10 units SQ TIDWM 01/17/17 [History] Metformin HCl 1,000 mg PO BID 07/14/17 [History] Rivaroxaban [Xarelto] 20 mg PO DAILY 07/14/17 [History] Spironolactone [Aldactone] 25 mg PO Q48H 07/14/17 [History] hydrALAZINE [HydrALAZINE] 10 mg PO BID 07/14/17 [History] Clindamycin HCl [Cleocin HCl] 300 mg PO Q6H #30 cap 07/20/17 [Rx] Furosemide [Lasix] 40 mg PO DAILY 14 Days #14 tablet 07/20/17 [Rx] 3 Allergy/AdvReac Type Severity Reaction Status Date / Time No Known Allergies Allergy Verified 07/14/17 16:19 All Systems PM: A 10-system review of systems was performed and is negative for pertinent findings except as documented above in the HPI. - Constitutional Constitutional: as per HPI, weakness, weight gain, no chills, no fever(s), no night sweats - EENT Eyes: no change in vision, no discharge, no pain, no photophobia Ears: no ear discharge, no ear pain, no tinnitus Nose, mouth and throat: no dysphagia, no nasal discharge, no neck pain, no sore throat - Breasts Breasts: as per HPI - Cardiovascular Cardiovascular ROS IM: as per HPI, chest pain (Occasional chest discomfort in left chest w/exertion), dyspnea, dyspnea on exertion, edema (Bilateral pedal edema in LEs), irregular heart rhythm (Hx of atrial fibrillation), orthopnea, no diaphoresis, no lightheadedness, no palpitations, no syncope - Respiratory Respiratory: as per HPI, dyspnea, dyspnea on exertion, wheezing, no cough, no excessive phlegm production - Gastrointestinal Gastrointestinal: no abdominal pain, no diarrhea, no hematemesis, no hematochezia, no melena, no nausea, no vomiting - Genitourinary Genitourinary ROS male: as per HPI - Musculoskeletal Musculoskeletal ROS IM: no numbness, no tingling - Integumentary Integumentary IM: as per HPI, erythema (Erythema and edema of bilateral LEs d/t cellulitis), no rash, no unusual bruising - Neurological Neurological ROS: no confusion, no convulsions, no focal weakness, no numbness, no tingling, no tremor(s) - Psychiatric Psychiatric: as per HPI - Endocrine Endocrine IM: as per HPI - Hematologic/Lymphatic Hematologic/Lymphatic: no easy bruising - Allergic/Immunologic Allergic/Immunologic: as per HPI - Constitutional Vitals: Temp Pulse Resp BP Pulse Ox 98.5 F 100 18 144/80 94 07/14/17 18:13 07/14/17 18:13 07/14/17 18:13 07/14/17 18:13 07/14/17 18:13 General appearance: Present: cooperative, mild distress (SOB), A&O X 3, morbidly obese, pleasant, answers questions appropriately - Head Head exam: Present: atraumatic, normocephalic - Eye Eye exam: Present: PERRL, conjuntiva pink, sclera anicteric Pupils: Present: PERRL - ENT ENT exam: Present: normal exam - Neck Neck exam general surgery: Present: normal inspection, supple, trachea midline. Absent: lymphadenopathy - Respiratory Respiratory exam: Present: CTAB. Absent: accessory muscle use, rales, rhonchi, wheezes - Cardiovascular Cardiovascular exam: Present: irregular rhythm - GI/Abdominal GI/Abdominal exam: Present: normal bowel sounds, soft, no peritoneal signs. Absent: distended, tenderness - Rectal Rectal exam: Present: deferred - Additional comments: exam deferred. - Extremities Exam Extremities exam: Present: warm, radial pulses palpable and symmetrical. Absent : calf tenderness, cyanotic, pedal edema - Back Exam Back exam: Present: normal inspection - Neurological Exam Neurological exam: Present: CN II-XII intact, oriented X3, no focal deficits. Absent: pronater drift, facial droop, speech deficit - Psychiatric Psychiatric exam: Present: normal affect, normal mood - Skin Skin exam: Present: dry, erythema (D/t cellulitis of the bilateral LEs), intact , vesicles (Bilateral cellulitis of the LEs) Internal Med - H&P Results - Labs CBC & Chem 7: 07/14/17 16:12 07/14/17 16:12 - EKG Data Prior EKG available for review: yes Interpretation IM: suggestive of ischemia EKG comments: 07/14/17 19:37 EKG dated 02/11/17 shows atrial fibrillation, low QRS voltage, poor R-wave progression. EKG dated 07/14/17 shows atrial fibrillation with possible anterior myocardial infarction of indeterminate age. - Diagnostic Studies Chest x-ray Additional comments: Impressions Chest X-Ray 07/14/17 15:49 IMPRESSION: Pulmonary vascular congestion. D/ / 07/14/2017 16:33:47 Valentino Christianson MD / Ofelia Calderón Interpreting Provider: Valentino Christianson MD - Assessment and plan (1) Acute exacerbation of CHF (congestive heart failure) Status: Acute Assessment and plan: Acute exacerbation of CHF. BNP 143 on admission. Pt. reports increase in weight , abdominal girth, and in bilateral pedal edema over past few weeks. Increased SOB/dyspnea w/exertion. Pt. reports he sleeps in a chair d/t orthopnea. Also reports he eats [employer] daily. Takes PO lasix 40 mg BID daily. Will hold oral and administer IVP lasix 40 mg BID. Monitor I&O and daily weight. 1.5L daily fluid restriction. Last echocardiogram was in 12/08 and showed LVEF of 55%, normal LV size and wall thickness, indeterminate diastolic function, RV not well visualized, no significant valvular dysfunction, and no pulmonary hypertension by TR gradient. Echocardiogram ordered. Continuous cardiac telemetry. Xopenex 1.25 IH Q6HR. Supplemental O2 w/titration and SpO2 monitoring. Falls/safety precautions d/t SOB and weakness. Pt. discussed w/Dr. Fatima who agrees w/plan of care. Pt. is high risk for further morbidity, cardiac/respiratory distress, and infection d/t current CHF exacerbation, uncontrolled diabetes, cellulitis of bilateral LEs, morbid obesity, hx, and risk factors. Inpatient. Qualifiers: Heart failure type: unspecified Qualified Code(s): I50.9 - Heart failure, unspecified (2) Cellulitis of both lower extremities Status: Acute Assessment and plan: Acute on chronic cellulitis of the bilateral LEs, currently worse d/t pedal edema from CHF exacerbation. DC Keflex given in ED and administer IVPB Clindamycin 900 mg Q8HR for infection coverage. Wound Care consult ordered for recommendations for daily wound care. IVP lasix 40 mg BID for fluid retention. (3) SOB (shortness of breath) Status: Acute Assessment and plan: Acute SOB/dyspnea r/t current acute exacerbation of CHF. Pt. denies home O2 use or breathing tx. Supplemental O2 w/titration and SpO2 monitoring. Xopenex 1.25 Q6HR IH d/t pts. current Afib. Falls/safety precautions, up with assist, bed rest w/bathroom privileges w/assist only. (4) HTN (hypertension) Status: Chronic Assessment and plan: Hx of chronic HTN. Monitor pt. and VS. Continue pts. Amlodipine, hydralazine, spironolactone, and metoprolol. Qualifiers: Hypertension type: essential hypertension Qualified Code(s): I10 - Essential (primary) hypertension (5) HLD (hyperlipidemia) Status: Chronic Assessment and plan: Hx of chronic HLD. Lipid panel in a.m. labs. Continue patient's Lipitor. Qualifiers: Hyperlipidemia type: pure hypercholesterolemia Qualified Code(s): E78.00 - Pure hypercholesterolemia, unspecified; E78.0 - Pure hypercholesterolemia (6) 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 underlying condition Status: Chronic Assessment and plan: Hx of chronic diabetic ulcer of heel. Wound Care consult ordered to address daily wound care of foot ulcer and cellulitis of bilateral LEs. Diabetes Education consult ordered for pt. education. Qualifiers: Laterality: right Non-pressure ulcer stage: limited to breakdown of skin Qualified Code(s): E08.621 - Diabetes mellitus due to underlying condition with foot ulcer; L97.411 - Non-pressure chronic ulcer of right heel and midfoot limited to breakdown of skin (7) Uncontrolled diabetes mellitus Status: Chronic Assessment and plan: Hx of chronic diabetes controlled by insulin. Pt. reports that he does not follow strict diet and eats [employer] daily. Also states he drinks large quantities of punch daily. Will continue pts. BID insulin and add low- dose correction insulin sliding scale w/hypoglycemic protocol. BG checks ACHS. A1c in a.m. labs. Diabetes Education consult ordered to provide education to pt. regarding better glucose control w/diet and exercise. Qualifiers: Diabetes mellitus type: type 2 Diabetes mellitus retirement insulin use: unspecified manager long term care insulin use status Diabetes mellitus complication status : with unspecified complications Qualified Code(s): E11.8 - Type 2 diabetes mellitus with unspecified complications; E11.65 - Type 2 diabetes mellitus with hyperglycemia (8) Unstable gait Status: Chronic Assessment and plan: Hx of chronically unstable gait. Falls/safety precautions, up with assist, bed rest w/bathroom privileges w/assist only. PT/OT consults ordered. (9) Atrial fibrillation Status: Chronic Assessment and plan: Hx of chronic atrial fibrillation. Continue pts. Xarelto. Continuous cardiac telemetry. Echocardiogram. EKG dated today shows atrial fibrillation with possible anterior myocardial infarction of indeterminate age. Qualifiers: Atrial fibrillation type: chronic Qualified Code(s): I48.2 - Chronic atrial fibrillation (10) Anemia Status: Chronic Assessment and plan: Hx of chronic anemia. Hgb 9.2 and Hct 30.1 on admission which is at or near pts. usual baseline since November 2016. Pt. denies unusual bleeding. Monitor H/ H in f/u labs. Qualifiers: Anemia type: unspecified type Qualified Code(s): D64.9 - Anemia, unspecified (11) CKD (chronic kidney disease) stage 3, GFR 30-59 ml/min Status: Chronic Assessment and plan: Hx of CKD, currently stage 3 w/GFR of 45 and creatinine of 1.55. Will use IV fluids judiciously d/t current CKD and acute exacerbation of CHF. Will avoid nephrotoxins. Monitor I&O and daily weight. (12) Hx of deep venous thrombosis Status: Resolved Assessment and plan: Hx of DVT in November 2016 during previous hospitalization. Continue pts. Xarelto. (13) DVT prophylaxis Status: Acute Assessment and plan: Continue pts. Xarelto for DVT prophylaxis. Monitor pt. for signs of bleeding. - Time Spent With Patient Total time spent is greater than 50% in coordination of care (as documented) at patient's floor/unit and/or counseling patient: Greater than 35 minutes <Sharyn Fatima - Last Filed: 07/22/17 01:47> Date of Encounter: 07/14/17 Internal Medicine - H&P: HPI History of present illness: Mr. Ramirez is a 67 year old male All Systems PM: A 10-system review of systems was performed and is negative for pertinent findings except as documented above in the HPI. - Constitutional Vitals: Temp Pulse Resp BP Pulse Ox 97.9 F 92 17 112/71 95 07/20/17 11:48 07/20/17 11:48 07/20/17 11:48 07/20/17 11:48 07/20/17 11:48 Internal Med - H&P Results - Labs CBC & Chem 7: 07/20/17 01:50 07/20/17 01:50 - Impressions ITS Impressions Echocardiogram 07/15/17 19:06 Impressions: LVEF 50-55%. Normal LV chamber size, wall thickness and function. Indeterminate diastolic function. Mildly dilated right ventricle with normal appearing function. Severely dilated left atrium. Severely dilated right atrium. Mild-moderate pulmonary hypertension. Estimated RVSP is 47 mmHg. No significant valvular dysfunction. Left Ventricular Wall Motion: Rest Echo Findings All wall segments showed normal motion. Findings: Study Quality * Technically adequate exam. ECG Findings * Atrial fibrillation. Left Ventricle * LVEF 50-55%. * Normal LV chamber size, wall thickness and function. * Indeterminate diastolic function. Right Ventricle * Mildly dilated right ventricle with normal appearing function. Left Atrium * Severely dilated left atrium. Right Atrium * Severely dilated right atrium. Aortic Valve * Aortic valve not well visualized. * No aortic regurgitation. * No aortic stenosis. Mitral Valve * Normal mitral valve structure and function. * No mitral stenosis. * No mitral regurgitation. Tricuspid Valve * Normal tricuspid valve structure and function. * Trace tricuspid regurgitation. * Mild-moderate pulmonary hypertension. * Estimated RVSP is 47 mmHg. * Estimated RA pressure is 5 mmHg. Pulmonic Valve * Pulmonic valve not well visualized. Aorta * Normally sized aortic root. Pericardium * The pericardium appears normal. IVC * The IVC is dilated. * > 50% respiratory change Pulmonary Artery * Normal visualized portions of the main pulmonary artery. Chest X-Ray 07/18/17 10:27 IMPRESSION: Vascular congestion. D/ / 07/18/2017 12:53:29 Jozef Ribeiro MD / [email or web address] Interpreting Provider: Jozef Ribeiro MD - Attending Attestation I personally and independently interviewed and examined the patient with CLINIC SCHEDULER, and I reviewed the patient's medical records. I am in agreement with the assessment and proposed treatment plan. I discussed my findings and recommendation with the patient and answer all questions. The patient's medical records were edited to accurately reflect this encounter. - Assessment and plan (1) Atrial fibrillation Status: Chronic Qualifiers: Atrial fibrillation type: chronic Qualified Code(s): I48.2 - Chronic atrial fibrillation (2) DVT prophylaxis Status: Acute (3) Unstable gait Status: Chronic (4) 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 underlying condition Status: Chronic Qualifiers: Laterality: right Non-pressure ulcer stage: limited to breakdown of skin Qualified Code(s): E08.621 - Diabetes mellitus due to underlying condition with foot ulcer; L97.411 - Non-pressure chronic ulcer of right heel and midfoot limited to breakdown of skin (5) SHANE (acute kidney injury) Status: Acute (6) Uncontrolled diabetes mellitus Status: Chronic Qualifiers: Diabetes mellitus type: type 2 Diabetes mellitus manager long term care insulin use: unspecified manager long term care insulin use status Diabetes mellitus complication status : with unspecified complications Qualified Code(s): E11.8 - Type 2 diabetes mellitus with unspecified complications; E11.65 - Type 2 diabetes mellitus with hyperglycemia (7) Acute exacerbation of CHF (congestive heart failure) Status: Acute Qualifiers: Heart failure type: diastolic Qualified Code(s): I50.33 - Acute on chronic diastolic (congestive) heart failure (8) Cellulitis of both lower extremities Status: Acute (9) Hx of deep venous thrombosis Status: Chronic (10) HTN (hypertension) Status: Chronic Qualifiers: Hypertension type: essential hypertension Qualified Code(s): I10 - Essential (primary) hypertension (11) HLD (hyperlipidemia) Status: Chronic Qualifiers: Hyperlipidemia type: pure hypercholesterolemia Qualified Code(s): E78.00 - Pure hypercholesterolemia, unspecified; E78.0 - Pure hypercholesterolemia (12) CKD (chronic kidney disease) stage 3, GFR 30-59 ml/min Status: Chronic - Time Spent With Patient Total time spent is greater than 50% in coordination of care (as documented) at patient's floor/unit and/or counseling patient:
[2017-07-14] MEDS: Spironolactone 25 MG TABLET PO SCH (20:52)
[2017-07-14] MEDS: hydrALAZINE 10 MG TABLET PO SCH (20:52)
[2017-07-14] MEDS: Insulin LISPRO 300 UNITS/3 ML VIAL SQ SCH (20:58)
[2017-07-14] MEDS: Insulin DETEMIR 100 UNIT/ML X5UNITS SQ SCH (21:00)
[2017-07-14] MEDS: Levalbuterol Neb 1.25 MG/3 ML IH SCH (22:45)
[2017-07-15] MEDS: Clindamycin 900 MG/50 ML 900 MG/50 ML IV.SOLN IVPB SCH ×3 (00:21→17:02)
[2017-07-15 02:28] LABS: Basophils # 0.1 K/mcL (0.0-0.2); Basophils % 0.9 %; Eosinophils # 0.3 K/mcL (0.0-0.6); Eosinophils % 4.8 %; Hematocrit 31.5 % (37.5-50.1); Hemoglobin 9.8 g/dL (12.9-16.9); Immature Granulocytes % 0.4 % (0-4); Lymphocytes # 1.1 K/mcL (0.6-4.6); Lymphocytes % 18.8 %; Mean Corpuscular HGB Conc 31.1 g/dL (31.6-35.5); Mean Corpuscular Hemoglobin 27.2 pg (28.0-33.3); Mean Corpuscular Volume 87.5 fL (83.0-100.0); Mean Platelet Volume 9.6 fL (9.4-12.4); Monocytes # 0.6 K/mcL (0.0-1.3); Monocytes % 10.5 %; Neutrophils # 3.6 K/mcL (1.6-8.9); Platelet Count 239 K/mcL (140-400); Red Cell Distribution Width 17.4 % (11.5-14.5); Segmented Neutrophils % 64.6 %
[2017-07-15 02:48] LABS: Troponin I < 0.03 ng/mL (< 0.04)
[2017-07-15 02:52] LABS: Alanine Aminotransferase 10 Units/L (7-52); Albumin 3.4 g/dL (3.5-5.7); Albumin/Globulin Ratio 0.9 (1.1-2.2); Alkaline Phosphatase 110 Units/L (34-104); Aspartate Amino Transferase 11 Units/L (13-39); BUN/Creatinine Ratio 18 (6-26); Bilirubin,Total 0.5 mg/dL (0.3-1.0); Blood Urea Nitrogen 27 mg/dL (8-23); Calcium 8.7 mg/dL (8.6-10.3); Carbon Dioxide 26 mEq/L (23-29); Chloride 106 mEq/L (98-107); Chol/HDL Ratio 2.4 (0-4.9); Cholesterol 85 mg/dL (< 200); Globulin 3.6 g/dL (2.4-3.5); Glucose 144 mg/dL (70-105); HDL Cholesterol 36 mg/dL (40-59); LDL Cholesterol,Calculated 38 mg/dL (0-99); Osmolality,Calculated 300 (280-300); Potassium 3.9 mEq/L (3.5-5.1); Sodium 141 mEq/L (136-145); Triglycerides 56 mg/dL (< 150); eGFR For African Americans 55 (> 60); eGFR For Non-African Americans 45 (> 60)
[2017-07-15] MEDS: Levalbuterol Neb 1.25 MG/3 ML IH SCH ×4 (04:31→22:53)
[2017-07-15] MEDS: Insulin LISPRO 300 UNITS/3 ML VIAL SQ SCH ×4 (07:22→21:09)
[2017-07-15 08:35] LABS: Estimated Average Glucose 223 mg/dl; Hemoglobin A1C 9.4 %
[2017-07-15] MEDS: Furosemide 40 MG/4 ML VIAL IVP SCH ×2 (09:15→17:02)
[2017-07-15] MEDS: BuPROPion XL (24 HR) 150 MG TABLET PO SCH (10:02)
[2017-07-15] MEDS: hydrALAZINE 10 MG TABLET PO SCH ×2 (10:03→22:30)
[2017-07-15] MEDS: amLODIPine 5 MG TABLET PO SCH (10:03)
[2017-07-15] MEDS: Metoprolol XL (24 HR) Succ 50 MG TAB.ER.24H PO SCH (10:03)
[2017-07-15] MEDS: Insulin DETEMIR 100 UNIT/ML X5UNITS SQ SCH ×2 (10:06→22:31)
--- NOTE | 2017-07-15 13:43 | Internal Med Progress Note ---
Date of Encounter: 07/15/17 Time of Encounter: 13:40 - Assessment and plan (1) Acute exacerbation of CHF (congestive heart failure) Current Visit: Yes Status: Acute Assessment and plan: Acute exacerbation of CHF. BNP 143 on admission. Pt. reports increase in weight , abdominal girth, and in bilateral pedal edema over past few weeks. Increased SOB/dyspnea w/exertion. Continue IV lasix BID. F/U 2D echo Qualifiers: Heart failure type: unspecified Qualified Code(s): I50.9 - Heart failure, unspecified (2) Atrial fibrillation Current Visit: Yes Status: Chronic Assessment and plan: Hx of chronic atrial fibrillation. Continue pts. Xarelto and rate control Qualifiers: Atrial fibrillation type: chronic Qualified Code(s): I48.2 - Chronic atrial fibrillation (3) DVT prophylaxis Current Visit: Yes Status: Acute Assessment and plan: Continue pts. Xarelto for DVT prophylaxis. Monitor pt. for signs of bleeding. (4) Unstable gait Current Visit: Yes Status: Chronic Assessment and plan: Hx of chronically unstable gait. Falls/safety precautions, up with assist, bed rest w/bathroom privileges w/assist only. PT/OT consults ordered. (5) 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 underlying condition Current Visit: Yes Status: Chronic Assessment and plan: Hx of chronic diabetic ulcer of heel. Wound Care consult ordered to address daily wound care of foot ulcer and cellulitis of bilateral LEs. Diabetes Education consult ordered for pt. education. Qualifiers: Laterality: right Non-pressure ulcer stage: limited to breakdown of skin Qualified Code(s): E08.621 - Diabetes mellitus due to underlying condition with foot ulcer; L97.411 - Non-pressure chronic ulcer of right heel and midfoot limited to breakdown of skin (6) Uncontrolled diabetes mellitus Current Visit: Yes Status: Chronic Assessment and plan: Hx of chronic diabetes controlled by insulin. Pt. reports that he does not follow strict diet and eats [employer] daily. Also states he drinks large quantities of punch daily. Will continue pts. BID insulin and add low- dose correction insulin sliding scale w/hypoglycemic protocol. BG checks ACHS. A1c in a.m. labs. Diabetes Education consult ordered to provide education to pt. regarding better glucose control w/diet and exercise. Qualifiers: Diabetes mellitus type: type 2 Diabetes mellitus halfway insulin use: unspecified halfway insulin use status Diabetes mellitus complication status : with unspecified complications Qualified Code(s): E11.8 - Type 2 diabetes mellitus with unspecified complications; E11.65 - Type 2 diabetes mellitus with hyperglycemia (7) Cellulitis of both lower extremities Current Visit: Yes Status: Acute Assessment and plan: Acute on chronic cellulitis of the bilateral LEs, currently worse d/t pedal edema from CHF exacerbation. DC Keflex given in ED and administer IVPB Clindamycin 900 mg Q8HR for infection coverage. Wound Care consult ordered for recommendations for daily wound care. IVP lasix 40 mg BID for fluid retention. (8) Hx of deep venous thrombosis Current Visit: Yes Status: Resolved Assessment and plan: Hx of DVT in November 2016 during previous hospitalization. Continue pts. Xarelto. (9) HTN (hypertension) Current Visit: Yes Status: Chronic Qualifiers: Hypertension type: essential hypertension Qualified Code(s): I10 - Essential (primary) hypertension (10) HLD (hyperlipidemia) Current Visit: Yes Status: Chronic Assessment and plan: Hx of chronic HLD. Lipid panel in a.m. labs. Continue patient's Lipitor. Qualifiers: Hyperlipidemia type: pure hypercholesterolemia Qualified Code(s): E78.00 - Pure hypercholesterolemia, unspecified; E78.0 - Pure hypercholesterolemia (11) Anemia Current Visit: Yes Status: Chronic Assessment and plan: Hx of chronic anemia. Hgb 9.2 and Hct 30.1 on admission which is at or near pts. usual baseline since November 2016. Pt. denies unusual bleeding. Monitor H/ H in f/u labs. Qualifiers: Anemia type: unspecified type Qualified Code(s): D64.9 - Anemia, unspecified (12) CKD (chronic kidney disease) stage 3, GFR 30-59 ml/min Current Visit: Yes Status: Chronic Assessment and plan: Hx of CKD, currently stage 3 w/GFR of 45 and creatinine of 1.55. Will use IV fluids judiciously d/t current CKD and acute exacerbation of CHF. Will avoid nephrotoxins. Monitor I&O and daily weight. - Time Spent With Patient Total time spent is greater than 50% in coordination of care (as documented) at patient's floor/unit and/or counseling patient: - Subjective Interval history: No acute events overnight - Constitutional Vitals: Temp Pulse Resp BP Pulse Ox 97.8 F 72 18 135/87 93 07/15/17 11:22 07/15/17 11:22 07/15/17 11:22 07/15/17 11:22 07/15/17 11:22 General appearance: Present: cooperative, mild distress (SOB), A&O X 3, morbidly obese, pleasant, answers questions appropriately - Head Head exam: Present: atraumatic, normocephalic - Eye Eye exam: Present: PERRL, conjuntiva pink, sclera anicteric Pupils: Present: PERRL - Neck Neck exam general surgery: Present: supple, trachea midline. Absent: lymphadenopathy - Respiratory Respiratory exam: Present: CTAB. Absent: accessory muscle use, rales, rhonchi, wheezes - Cardiovascular Cardiovascular exam: Present: RRR, +S1, +S2. Absent: diastolic murmur, gallop, rubs, systolic murmur - GI/Abdominal GI/Abdominal exam: Present: normal bowel sounds, soft, no peritoneal signs. Absent: distended, tenderness - Extremities Exam Extremities exam: Present: warm, radial pulses palpable and symmetrical. Absent : calf tenderness, cyanotic, pedal edema - Neurological Exam Neurological exam: Present: CN II-XII intact, oriented X3, no focal deficits. Absent: pronater drift, facial droop, speech deficit - Skin Skin exam: Present: dry, intact Internal Medicine: Result - Labs CBC & Chem 7: 07/15/17 01:37 07/15/17 01:37 Labs: Short CBC 07/15/17 Range/Units 01:37 WBC 5.6 (4.3-11.1) K/mcL Hgb 9.8 L (12.9-16.9) g/dL Hct 31.5 L (37.5-50.1) % Plt Count 239 (140-400) K/mcL Neutrophils # 3.6 (1.6-8.9) K/mcL BMP 07/15/17 01:37 Sodium 141 Potassium 3.9 Chloride 106 Carbon Dioxide 26 BUN 27 H Creatinine 1.54 H Glucose 144 H Calcium 8.7 Cardiac Enzymes 07/14/17 07/15/17 Range/Units 21:53 01:37 Troponin I < 0.03 < 0.03 (< 0.04) ng/mL Liver Function 07/15/17 Range/Units 01:37 Total Bilirubin 0.5 (0.3-1.0) mg/dL AST 11 L (13-39) Units/L ALT 10 (7-52) Units/L Alkaline Phosphatase 110 H (34-104) Units/L Albumin 3.4 L (3.5-5.7) g/dL - ABG Interpretation ABG results: PT/INR, D-dimer PT 18.0 Seconds (9.4-12.1) H 07/14/17 16:12 Consult Discharge Plan - Plan Instructions: How to Check Your Blood Sugar (GEN), Diabetes Mellitus Type 2 in Adults (GEN), Meal Planning with Diabetes Exchanges (GEN), Managing Diabetes During Sick Days (GEN), Diabetic Hyperglycemia (GEN) Referrals: Girish Jara MD [Primary Care Provider] -
[2017-07-15] MEDS: *HR* Rivaroxaban 10 MG TABLET PO SCH (17:02)
[2017-07-16] MEDS: Clindamycin 900 MG/50 ML 900 MG/50 ML IV.SOLN IVPB SCH ×3 (00:39→17:32)
[2017-07-16 03:00] LABS: Basophils % 0.7 %; Eosinophils # 0.2 K/mcL (0.0-0.6); Eosinophils % 4.1 %; Hematocrit 28.6 % (37.5-50.1); Immature Granulocytes % 0.2 % (0-4); Lymphocytes % 17.1 %; Mean Corpuscular HGB Conc 31.5 g/dL (31.6-35.5); Mean Corpuscular Hemoglobin 27.3 pg (28.0-33.3); Mean Corpuscular Volume 86.7 fL (83.0-100.0); Mean Platelet Volume 9.5 fL (9.4-12.4); Monocytes # 0.7 K/mcL (0.0-1.3); Monocytes % 12.2 %; Neutrophils # 3.8 K/mcL (1.6-8.9); Platelet Count 222 K/mcL (140-400); Red Cell Distribution Width 17.4 % (11.5-14.5); Segmented Neutrophils % 65.7 %
--- NOTE | 2017-07-16 03:00 | Event Note ---
Date of Encounter: 07/16/17 Time of Encounter: 02:50 Reported by RN that the patient was found sitting on floor. Examined patient in the room, patient is AAO 3, said he tried to go to bathroom but fell on floor. Clearly denies any head or neck injury. Denies any pain in body. Pt can move 4 limbs freely without pain. Patient can stand up and walk with assistance. Noticed that patient is on xarelto. Will hold further test at this point. Instruct RN to closely monitor patient's mental status or any new symptoms.
[2017-07-16 03:20] LABS: Albumin 3.1 g/dL (3.5-5.7); Bilirubin,Total 0.3 mg/dL (0.3-1.0); Calcium 8.7 mg/dL (8.6-10.3); Globulin 3.1 g/dL (2.4-3.5); Potassium 4.3 mEq/L (3.5-5.1); Total Protein 6.2 g/dL (6.4-8.9)
[2017-07-16] MEDS: Levalbuterol Neb 1.25 MG/3 ML IH SCH ×4 (04:17→23:14)
[2017-07-16] MEDS: Insulin LISPRO 300 UNITS/3 ML VIAL SQ SCH ×4 (08:01→21:15)
[2017-07-16] MEDS: hydrALAZINE 10 MG TABLET PO SCH ×2 (08:02→21:14)
[2017-07-16] MEDS: BuPROPion XL (24 HR) 150 MG TABLET PO SCH (08:02)
[2017-07-16] MEDS: amLODIPine 5 MG TABLET PO SCH (08:02)
[2017-07-16] MEDS: Furosemide 40 MG/4 ML VIAL IVP SCH ×2 (08:02→17:33)
[2017-07-16] MEDS: Metoprolol XL (24 HR) Succ 50 MG TAB.ER.24H PO SCH (08:02)
--- NOTE | 2017-07-16 08:09 | Electrocardiograph Report ---
[place] [id number] Test Date: 2017-07-14 Pat Name: Michael Ramirez Department: 103 Room: [facility] Gender: M Director Of Primary: ERICK : 1950 Requested By: Bacilio Sherwood Order Number: [id number] Reading MD: Kemar Wu Measurements Intervals [place] Rate: 97 P: [place]: 0 QRS: 35 QRSD: 101 T: 36 QT: 336 QTc: 391 Interpretive Statements ATRIAL FIBRILLATION PVCs OR ABERRANT CONDUCTION POSSIBLE ANTERIOR MYOCARDIAL INFARCTION, OF INDETERMINATE AGE Electronically Signed On 07-16-2017 8:07:27 EDT by Kemar Wu
[2017-07-16] MEDS: Insulin DETEMIR 100 UNIT/ML X5UNITS SQ SCH ×2 (08:19→21:15)
--- NOTE | 2017-07-16 12:59 | Internal Med Progress Note ---
Date of Encounter: 07/16/17 Time of Encounter: 12:50 - Assessment and plan (1) Acute exacerbation of CHF (congestive heart failure) Current Visit: Yes Status: Acute Assessment and plan: Acute exacerbation of CHF. BNP 143 on admission. Pt. reports increase in weight , abdominal girth, and in bilateral pedal edema over past few weeks. Increased SOB/dyspnea w/exertion. Continue IV lasix BID. Echo showed severely dilated left atrium with EF 50% Qualifiers: Heart failure type: diastolic Qualified Code(s): I50.33 - Acute on chronic diastolic (congestive) heart failure (2) Atrial fibrillation Current Visit: Yes Status: Chronic Assessment and plan: Hx of chronic atrial fibrillation. Continue pts. Xarelto and rate control Qualifiers: Atrial fibrillation type: chronic Qualified Code(s): I48.2 - Chronic atrial fibrillation (3) DVT prophylaxis Current Visit: Yes Status: Acute Assessment and plan: Continue pts. Xarelto for DVT prophylaxis. Monitor pt. for signs of bleeding. (4) Unstable gait Current Visit: Yes Status: Chronic Assessment and plan: Hx of chronically unstable gait. Falls/safety precautions, up with assist, bed rest w/bathroom privileges w/assist only. PT/OT consults ordered. (5) 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 underlying condition Current Visit: Yes Status: Chronic Assessment and plan: Hx of chronic diabetic ulcer of heel. Wound Care consult ordered to address daily wound care of foot ulcer and cellulitis of bilateral LEs. Diabetes Education consult ordered for pt. education. Qualifiers: Laterality: right Non-pressure ulcer stage: limited to breakdown of skin Qualified Code(s): E08.621 - Diabetes mellitus due to underlying condition with foot ulcer; L97.411 - Non-pressure chronic ulcer of right heel and midfoot limited to breakdown of skin (6) Uncontrolled diabetes mellitus Current Visit: Yes Status: Chronic Assessment and plan: Hx of chronic diabetes controlled by insulin. Pt. reports that he does not follow strict diet and eats [employer] daily. Also states he drinks large quantities of punch daily. Will continue pts. BID insulin and add low- dose correction insulin sliding scale w/hypoglycemic protocol. BG checks ACHS. A1c in a.m. labs. Diabetes Education consult ordered to provide education to pt. regarding better glucose control w/diet and exercise. Qualifiers: Diabetes mellitus type: type 2 Diabetes mellitus long-term insulin use: unspecified ferry terminal agent insulin use status Diabetes mellitus complication status : with unspecified complications Qualified Code(s): E11.8 - Type 2 diabetes mellitus with unspecified complications; E11.65 - Type 2 diabetes mellitus with hyperglycemia (7) Cellulitis of both lower extremities Current Visit: Yes Status: Acute Assessment and plan: Acute on chronic cellulitis of the bilateral LEs, currently worse d/t pedal edema from CHF exacerbation. DC Keflex given in ED and administer IVPB Clindamycin 900 mg Q8HR for infection coverage. Wound Care consult ordered for recommendations for daily wound care. IVP lasix 40 mg BID for fluid retention. (8) Hx of deep venous thrombosis Current Visit: Yes Status: Resolved Assessment and plan: Hx of DVT in November 2016 during previous hospitalization. Continue pts. Xarelto. (9) HTN (hypertension) Current Visit: Yes Status: Chronic Assessment and plan: Hx of chronic HTN. Monitor pt. and VS. Continue pts. Amlodipine, hydralazine, spironolactone, and metoprolol. Qualifiers: Hypertension type: essential hypertension Qualified Code(s): I10 - Essential (primary) hypertension (10) HLD (hyperlipidemia) Current Visit: Yes Status: Chronic Assessment and plan: Hx of chronic HLD. Lipid panel in a.m. labs. Continue patient's Lipitor. Qualifiers: Hyperlipidemia type: pure hypercholesterolemia Qualified Code(s): E78.00 - Pure hypercholesterolemia, unspecified; E78.0 - Pure hypercholesterolemia (11) Anemia Current Visit: Yes Status: Chronic Assessment and plan: Hx of chronic anemia. Hgb 9.2 and Hct 30.1 on admission which is at or near pts. usual baseline since November 2016. Pt. denies unusual bleeding. Monitor H/ H in f/u labs. Qualifiers: Anemia type: unspecified type Qualified Code(s): D64.9 - Anemia, unspecified (12) CKD (chronic kidney disease) stage 3, GFR 30-59 ml/min Current Visit: Yes Status: Chronic Assessment and plan: Hx of CKD, currently stage 3 w/GFR of 45 and creatinine of 1.55. Will use IV fluids judiciously d/t current CKD and acute exacerbation of CHF. Will avoid nephrotoxins. Monitor I&O and daily weight. - Time Spent With Patient Total time spent is greater than 50% in coordination of care (as documented) at patient's floor/unit and/or counseling patient: - Subjective Interval history: Had questionable fall overnight. Found sitting on the floor. No further work up indicated - Constitutional Vitals: Temp Pulse Resp BP Pulse Ox 97.8 F 70 18 117/68 98 07/16/17 04:01 07/16/17 11:15 07/16/17 11:15 07/16/17 11:15 07/16/17 11:15 General appearance: Present: cooperative, mild distress (SOB), A&O X 3, morbidly obese, pleasant, answers questions appropriately - Head Head exam: Present: atraumatic, normocephalic - Eye Eye exam: Present: PERRL, conjuntiva pink, sclera anicteric Pupils: Present: PERRL - Neck Neck exam general surgery: Present: supple, trachea midline. Absent: lymphadenopathy - Respiratory Respiratory exam: Present: CTAB. Absent: accessory muscle use, rales, rhonchi, wheezes - Cardiovascular Cardiovascular exam: Present: RRR, +S1, +S2. Absent: diastolic murmur, gallop, rubs, systolic murmur - GI/Abdominal GI/Abdominal exam: Present: normal bowel sounds, soft, no peritoneal signs. Absent: distended, tenderness - Extremities Exam Extremities exam: Present: warm, radial pulses palpable and symmetrical. Absent : calf tenderness, cyanotic, pedal edema Additional comments: 2+ pitting edema - Neurological Exam Neurological exam: Present: CN II-XII intact, oriented X3, no focal deficits. Absent: pronater drift, facial droop, speech deficit - Skin Skin exam: Present: dry, intact Internal Medicine: Result - Labs CBC & Chem 7: 07/16/17 02:20 07/16/17 02:20 Labs: Short CBC 07/16/17 Range/Units 02:20 WBC 5.8 (4.3-11.1) K/mcL Hgb 9.0 L (12.9-16.9) g/dL Hct 28.6 L (37.5-50.1) % Plt Count 222 (140-400) K/mcL Neutrophils # 3.8 (1.6-8.9) K/mcL BMP 07/16/17 02:20 Sodium 140 Potassium 4.3 Chloride 106 Carbon Dioxide 27 BUN 33 H Creatinine 1.77 H Glucose 69 L Calcium 8.7 Liver Function 07/16/17 Range/Units 02:20 Total Bilirubin 0.3 (0.3-1.0) mg/dL AST 10 L (13-39) Units/L ALT 9 (7-52) Units/L Alkaline Phosphatase 95 (34-104) Units/L Albumin 3.1 L (3.5-5.7) g/dL - ABG Interpretation ABG results: PT/INR, D-dimer PT 18.0 Seconds (9.4-12.1) H 07/14/17 16:12 - Impressions Impressions Echocardiogram 07/15/17 19:06 Impressions: LVEF 50-55%. Normal LV chamber size, wall thickness and function. Indeterminate diastolic function. Mildly dilated right ventricle with normal appearing function. Severely dilated left atrium. Severely dilated right atrium. Mild-moderate pulmonary hypertension. Estimated RVSP is 47 mmHg. No significant valvular dysfunction. Left Ventricular Wall Motion: Rest Echo Findings All wall segments showed normal motion. Findings: Study Quality * Technically adequate exam. ECG Findings * Atrial fibrillation. Left Ventricle * LVEF 50-55%. * Normal LV chamber size, wall thickness and function. * Indeterminate diastolic function. Right Ventricle * Mildly dilated right ventricle with normal appearing function. Left Atrium * Severely dilated left atrium. Right Atrium * Severely dilated right atrium. Aortic Valve * Aortic valve not well visualized. * No aortic regurgitation. * No aortic stenosis. Mitral Valve * Normal mitral valve structure and function. * No mitral stenosis. * No mitral regurgitation. Tricuspid Valve * Normal tricuspid valve structure and function. * Trace tricuspid regurgitation. * Mild-moderate pulmonary hypertension. * Estimated RVSP is 47 mmHg. * Estimated RA pressure is 5 mmHg. Pulmonic Valve * Pulmonic valve not well visualized. Aorta * Normally sized aortic root. Pericardium * The pericardium appears normal. IVC * The IVC is dilated. * > 50% respiratory change Pulmonary Artery * Normal visualized portions of the main pulmonary artery. Consult Discharge Plan - Plan Instructions: How to Check Your Blood Sugar (GEN), Diabetes Mellitus Type 2 in Adults (GEN), Meal Planning with Diabetes Exchanges (GEN), Managing Diabetes During Sick Days (GEN), Diabetic Hyperglycemia (GEN) Referrals: Girish Jara MD [Primary Care Provider] -
[2017-07-16] MEDS: *HR* Rivaroxaban 10 MG TABLET PO SCH (17:33)
[2017-07-16] MEDS: Spironolactone 25 MG TABLET PO SCH (17:33)
[2017-07-17] MEDS: Clindamycin 900 MG/50 ML 900 MG/50 ML IV.SOLN IVPB SCH ×3 (00:42→17:26)
[2017-07-17 02:24] LABS: Basophils % 0.5 %; Eosinophils # 0.2 K/mcL (0.0-0.6); Hematocrit 30.1 % (37.5-50.1); Hemoglobin 9.1 g/dL (12.9-16.9); Immature Granulocytes % 0.3 % (0-4); Lymphocytes % 16.9 %; Mean Corpuscular HGB Conc 30.2 g/dL (31.6-35.5); Mean Corpuscular Hemoglobin 26.1 pg (28.0-33.3); Mean Corpuscular Volume 86.5 fL (83.0-100.0); Mean Platelet Volume 9.6 fL (9.4-12.4); Monocytes # 0.6 K/mcL (0.0-1.3); Platelet Count 227 K/mcL (140-400); Red Blood Count 3.48 M/mcL (4.19-5.50); Red Cell Distribution Width 17.5 % (11.5-14.5); Segmented Neutrophils % 68.3 %
[2017-07-17 02:42] LABS: Albumin 3.4 g/dL (3.5-5.7); Albumin/Globulin Ratio 1.1 (1.1-2.2); Bilirubin,Total 0.3 mg/dL (0.3-1.0); Calcium 8.6 mg/dL (8.6-10.3); Globulin 3.1 g/dL (2.4-3.5); Potassium 4.4 mEq/L (3.5-5.1); Total Protein 6.5 g/dL (6.4-8.9)
[2017-07-17] MEDS: Levalbuterol Neb 1.25 MG/3 ML IH SCH ×4 (04:02→23:12)
[2017-07-17] MEDS: Metoprolol XL (24 HR) Succ 50 MG TAB.ER.24H PO SCH (08:00)
[2017-07-17] MEDS: amLODIPine 5 MG TABLET PO SCH (08:00)
[2017-07-17] MEDS: hydrALAZINE 10 MG TABLET PO SCH ×2 (08:00→21:08)
[2017-07-17] MEDS: BuPROPion XL (24 HR) 150 MG TABLET PO SCH (08:00)
[2017-07-17] MEDS: Insulin DETEMIR 100 UNIT/ML X5UNITS SQ SCH ×2 (08:01→22:30)
[2017-07-17] MEDS: Furosemide 40 MG/4 ML VIAL IVP SCH (08:01)
[2017-07-17] MEDS: Insulin LISPRO 300 UNITS/3 ML VIAL SQ SCH ×4 (08:01→22:30)
--- NOTE | 2017-07-17 11:11 | Internal Med Progress Note ---
Date of Encounter: 07/17/17 Time of Encounter: 11:00 - Assessment and plan (1) Acute exacerbation of CHF (congestive heart failure) Current Visit: Yes Status: Acute Assessment and plan: Pt. reports increase in weight, abdominal girth, and in bilateral pedal edema over past few weeks. Increased SOB/dyspnea w/exertion. Continue IV lasix BID. Echo showed severely dilated left atrium with EF 50%. Patient has improved with IV lasix Qualifiers: Heart failure type: diastolic Qualified Code(s): I50.33 - Acute on chronic diastolic (congestive) heart failure (2) SHANE (acute kidney injury) Current Visit: No Status: Acute Assessment and plan: Likely 2/2 to overdiuresis. Will hold lasix today. repeat BMP in am (3) Atrial fibrillation Current Visit: Yes Status: Chronic Assessment and plan: Hx of chronic atrial fibrillation. Continue pts. Xarelto and rate control Qualifiers: Atrial fibrillation type: chronic Qualified Code(s): I48.2 - Chronic atrial fibrillation (4) Cellulitis of both lower extremities Current Visit: Yes Status: Acute Assessment and plan: Continue Iv clindamycin and wound care (5) DVT prophylaxis Current Visit: Yes Status: Acute Assessment and plan: Continue pts. Xarelto for DVT prophylaxis. Monitor pt. for signs of bleeding. (6) Unstable gait Current Visit: Yes Status: Chronic Assessment and plan: Hx of chronically unstable gait. Falls/safety precautions, up with assist, bed rest w/bathroom privileges w/assist only. PT/OT consults ordered. (7) 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 underlying condition Current Visit: Yes Status: Chronic Assessment and plan: Hx of chronic diabetic ulcer of heel. Wound Care consult ordered to address daily wound care of foot ulcer and cellulitis of bilateral LEs. Diabetes Education consult ordered for pt. education. Qualifiers: Laterality: right Non-pressure ulcer stage: limited to breakdown of skin Qualified Code(s): E08.621 - Diabetes mellitus due to underlying condition with foot ulcer; L97.411 - Non-pressure chronic ulcer of right heel and midfoot limited to breakdown of skin (8) Uncontrolled diabetes mellitus Current Visit: Yes Status: Chronic Assessment and plan: Hx of chronic diabetes controlled by insulin. Pt. reports that he does not follow strict diet and eats [employer] daily. Also states he drinks large quantities of punch daily. Will continue pts. BID insulin and add low- dose correction insulin sliding scale w/hypoglycemic protocol. BG checks ACHS. A1c in a.m. labs. Diabetes Education consult ordered to provide education to pt. regarding better glucose control w/diet and exercise. Qualifiers: Diabetes mellitus type: type 2 Diabetes mellitus buttermaker helper insulin use: unspecified buttermaker helper insulin use status Diabetes mellitus complication status : with unspecified complications Qualified Code(s): E11.8 - Type 2 diabetes mellitus with unspecified complications; E11.65 - Type 2 diabetes mellitus with hyperglycemia (9) Hx of deep venous thrombosis Current Visit: Yes Status: Resolved Assessment and plan: Hx of DVT in November 2016 during previous hospitalization. Continue pts. Xarelto. (10) HTN (hypertension) Current Visit: Yes Status: Chronic Assessment and plan: Hx of chronic HTN. Monitor pt. and VS. Continue pts. Amlodipine, hydralazine, spironolactone, and metoprolol. Qualifiers: Hypertension type: essential hypertension Qualified Code(s): I10 - Essential (primary) hypertension (11) HLD (hyperlipidemia) Current Visit: Yes Status: Chronic Assessment and plan: Hx of chronic HLD. Lipid panel in a.m. labs. Continue patient's Lipitor. Qualifiers: Hyperlipidemia type: pure hypercholesterolemia Qualified Code(s): E78.00 - Pure hypercholesterolemia, unspecified; E78.0 - Pure hypercholesterolemia (12) Anemia Current Visit: Yes Status: Chronic Assessment and plan: Hx of chronic anemia. Hgb 9.2 and Hct 30.1 on admission which is at or near pts. usual baseline since November 2016. Pt. denies unusual bleeding. Monitor H/ H in f/u labs. Qualifiers: Anemia type: unspecified type Qualified Code(s): D64.9 - Anemia, unspecified (13) CKD (chronic kidney disease) stage 3, GFR 30-59 ml/min Current Visit: Yes Status: Chronic Assessment and plan: Hx of CKD, currently stage 3 w/GFR of 45 and creatinine of 1.55. Will use IV fluids judiciously d/t current CKD and acute exacerbation of CHF. Will avoid nephrotoxins. Monitor I&O and daily weight. - Time Spent With Patient Total time spent is greater than 50% in coordination of care (as documented) at patient's floor/unit and/or counseling patient: - Subjective Interval history: Had questionable fall overnight. Found sitting on the floor. No further work up indicated - Constitutional Vitals: Temp Pulse Resp BP Pulse Ox 98.7 F 111 16 112/65 92 07/17/17 07:36 07/17/17 07:36 07/17/17 10:22 07/17/17 07:36 07/17/17 10:22 General appearance: Present: cooperative, mild distress (SOB), A&O X 3, morbidly obese, pleasant, answers questions appropriately - Head Head exam: Present: atraumatic, normocephalic - Eye Eye exam: Present: PERRL, conjuntiva pink, sclera anicteric Pupils: Present: PERRL - Neck Neck exam general surgery: Present: supple, trachea midline. Absent: lymphadenopathy - Respiratory Respiratory exam: Present: CTAB. Absent: accessory muscle use, rales, rhonchi, wheezes - Cardiovascular Cardiovascular exam: Present: RRR, +S1, +S2. Absent: diastolic murmur, gallop, rubs, systolic murmur - GI/Abdominal GI/Abdominal exam: Present: normal bowel sounds, soft, no peritoneal signs. Absent: distended, tenderness - Extremities Exam Extremities exam: Present: pedal edema, warm, radial pulses palpable and symmetrical. Absent: calf tenderness, cyanotic Additional comments: Bilateral pedal edema, dressing in place - Neurological Exam Neurological exam: Present: CN II-XII intact, oriented X3, no focal deficits. Absent: pronater drift, facial droop, speech deficit - Skin Skin exam: Present: dry, intact Internal Medicine: Result - Labs CBC & Chem 7: 07/17/17 01:30 07/17/17 01:30 Labs: Short CBC 07/17/17 Range/Units 01:30 WBC 5.8 (4.3-11.1) K/mcL Hgb 9.1 L (12.9-16.9) g/dL Hct 30.1 L (37.5-50.1) % Plt Count 227 (140-400) K/mcL Neutrophils # 4.0 (1.6-8.9) K/mcL BMP 07/17/17 01:30 Sodium 138 Potassium 4.4 Chloride 103 Carbon Dioxide 28 BUN 40 H Creatinine 2.10 H Glucose 212 H Calcium 8.6 Liver Function 07/17/17 Range/Units 01:30 Total Bilirubin 0.3 (0.3-1.0) mg/dL AST 10 L (13-39) Units/L ALT 10 (7-52) Units/L Alkaline Phosphatase 99 (34-104) Units/L Albumin 3.4 L (3.5-5.7) g/dL - ABG Interpretation ABG results: PT/INR, D-dimer PT 18.0 Seconds (9.4-12.1) H 07/14/17 16:12 Consult Discharge Plan - Plan Instructions: How to Check Your Blood Sugar (GEN), Diabetes Mellitus Type 2 in Adults (GEN), Meal Planning with Diabetes Exchanges (GEN), Managing Diabetes During Sick Days (GEN), Diabetic Hyperglycemia (GEN) Referrals: Girish Jara MD [Primary Care Provider] -
[2017-07-17] MEDS: *HR* Rivaroxaban 10 MG TABLET PO SCH (17:25)
[2017-07-18] MEDS: Clindamycin 900 MG/50 ML 900 MG/50 ML IV.SOLN IVPB SCH ×3 (01:22→16:30)
[2017-07-18 02:08] LABS: Albumin 3.6 g/dL (3.5-5.7); Albumin/Globulin Ratio 1.1 (1.1-2.2); Bilirubin,Total 0.3 mg/dL (0.3-1.0); Globulin 3.3 g/dL (2.4-3.5); Potassium 4.6 mEq/L (3.5-5.1); Total Protein 6.9 g/dL (6.4-8.9)
[2017-07-18 02:27] LABS: Basophils % 0.7 %; Eosinophils # 0.3 K/mcL (0.0-0.6); Eosinophils % 5.5 %; Hematocrit 30.7 % (37.5-50.1); Hemoglobin 9.5 g/dL (12.9-16.9); Immature Granulocytes % 0.2 % (0-4); Lymphocytes # 1.1 K/mcL (0.6-4.6); Lymphocytes % 20.1 %; Mean Corpuscular HGB Conc 30.9 g/dL (31.6-35.5); Mean Corpuscular Hemoglobin 26.9 pg (28.0-33.3); Mean Platelet Volume 9.7 fL (9.4-12.4); Monocytes # 0.6 K/mcL (0.0-1.3); Monocytes % 10.6 %; Neutrophils # 3.4 K/mcL (1.6-8.9); Platelet Count 233 K/mcL (140-400); Red Blood Count 3.53 M/mcL (4.19-5.50); Red Cell Distribution Width 17.2 % (11.5-14.5); Segmented Neutrophils % 62.9 %
[2017-07-18] MEDS: Levalbuterol Neb 1.25 MG/3 ML IH SCH ×4 (04:19→22:45)
[2017-07-18] MEDS: Insulin LISPRO 300 UNITS/3 ML VIAL SQ SCH ×4 (07:41→21:35)
[2017-07-18] MEDS: Metoprolol XL (24 HR) Succ 50 MG TAB.ER.24H PO SCH (07:42)
[2017-07-18] MEDS: hydrALAZINE 10 MG TABLET PO SCH ×2 (07:42→19:44)
[2017-07-18] MEDS: BuPROPion XL (24 HR) 150 MG TABLET PO SCH (07:42)
[2017-07-18] MEDS: amLODIPine 5 MG TABLET PO SCH (07:42)
[2017-07-18] MEDS: Insulin DETEMIR 100 UNIT/ML X5UNITS SQ SCH ×2 (07:42→21:36)
--- NOTE | 2017-07-18 10:33 | Internal Med Progress Note ---
Date of Encounter: 07/18/17 Time of Encounter: 10:30 - Assessment and plan (1) SHANE (acute kidney injury) Current Visit: No Status: Acute Assessment and plan: Likely 2/2 to overdiuresis. Creatinine has trended up slowly for the last 2 days. Patient is clinically euvolemic. Lasix has been on hold since tuesday. continue to hold lasix. If creatinine trends down, possible discharge in am, otherwise would consider renal consult (2) Acute exacerbation of CHF (congestive heart failure) Current Visit: Yes Status: Acute Assessment and plan: Pt. reports increase in weight, abdominal girth, and in bilateral pedal edema over past few weeks. Increased SOB/dyspnea w/exertion. CXR shows pulmonary vascular congestion. Echo showed severely dilated left atrium with EF 50%. Patient has improved with IV lasix. Lasix is currently on hold 2/2 to worsening kidney function Qualifiers: Heart failure type: diastolic Qualified Code(s): I50.33 - Acute on chronic diastolic (congestive) heart failure (3) Atrial fibrillation Current Visit: Yes Status: Chronic Assessment and plan: Hx of chronic atrial fibrillation. Continue pts. Xarelto and rate control with metoprolol Qualifiers: Atrial fibrillation type: chronic Qualified Code(s): I48.2 - Chronic atrial fibrillation (4) Cellulitis of both lower extremities Current Visit: Yes Status: Acute Assessment and plan: Continue Iv clindamycin and wound care. Can plan for discharge on po clindamycin (5) DVT prophylaxis Current Visit: Yes Status: Acute Assessment and plan: Continue pts. Xarelto for DVT prophylaxis. Monitor pt. for signs of bleeding. (6) Unstable gait Current Visit: Yes Status: Chronic Assessment and plan: Hx of chronically unstable gait. Falls/safety precautions, up with assist, bed rest w/bathroom privileges w/assist only. PT/OT consults ordered. (7) 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 underlying condition Current Visit: Yes Status: Chronic Assessment and plan: Hx of chronic diabetic ulcer of heel. Wound Care consult ordered to address daily wound care of foot ulcer and cellulitis of bilateral LEs. Diabetes Education consult ordered for pt. education. Qualifiers: Laterality: right Non-pressure ulcer stage: limited to breakdown of skin Qualified Code(s): E08.621 - Diabetes mellitus due to underlying condition with foot ulcer; L97.411 - Non-pressure chronic ulcer of right heel and midfoot limited to breakdown of skin (8) Uncontrolled diabetes mellitus Current Visit: Yes Status: Chronic Assessment and plan: Hx of chronic diabetes controlled by insulin. Pt. reports that he does not follow strict diet and eats [employer] daily. Also states he drinks large quantities of punch daily. Will continue pts. BID insulin and add low- dose correction insulin sliding scale w/hypoglycemic protocol. BG checks ACHS. A1c in a.m. labs. Diabetes Education consult ordered to provide education to pt. regarding better glucose control w/diet and exercise. Qualifiers: Diabetes mellitus type: type 2 Diabetes mellitus intermediate insulin use: unspecified intermediate insulin use status Diabetes mellitus complication status : with unspecified complications Qualified Code(s): E11.8 - Type 2 diabetes mellitus with unspecified complications; E11.65 - Type 2 diabetes mellitus with hyperglycemia (9) Hx of deep venous thrombosis Current Visit: Yes Status: Resolved Assessment and plan: Hx of DVT in November 2016 during previous hospitalization. Continue pts. Xarelto. (10) HTN (hypertension) Current Visit: Yes Status: Chronic Assessment and plan: Hx of chronic HTN. Monitor pt. and VS. Continue pts. Amlodipine, hydralazine, spironolactone, and metoprolol. Qualifiers: Hypertension type: essential hypertension Qualified Code(s): I10 - Essential (primary) hypertension (11) HLD (hyperlipidemia) Current Visit: Yes Status: Chronic Assessment and plan: Hx of chronic HLD. Lipid panel in a.m. labs. Continue patient's Lipitor. Qualifiers: Hyperlipidemia type: pure hypercholesterolemia Qualified Code(s): E78.00 - Pure hypercholesterolemia, unspecified; E78.0 - Pure hypercholesterolemia (12) CKD (chronic kidney disease) stage 3, GFR 30-59 ml/min Current Visit: Yes Status: Chronic Assessment and plan: Hx of CKD, currently stage 3 w/GFR of 45 and creatinine of 1.55. Will use IV fluids judiciously d/t current CKD and acute exacerbation of CHF. Will avoid nephrotoxins. Monitor I&O and daily weight. - Time Spent With Patient Total time spent is greater than 50% in coordination of care (as documented) at patient's floor/unit and/or counseling patient: - Subjective Interval history: No acute events overnight - Constitutional Vitals: Temp Pulse Resp BP Pulse Ox 98.8 F 79 16 145/75 94 07/18/17 07:24 07/18/17 07:24 07/18/17 10:03 07/18/17 07:24 07/18/17 10:03 General appearance: Present: cooperative, mild distress (SOB), A&O X 3, morbidly obese, pleasant, answers questions appropriately Exam: obese gentleman - Head Head exam: Present: atraumatic, normocephalic - Eye Eye exam: Present: PERRL, conjuntiva pink, sclera anicteric Pupils: Present: PERRL - Neck Neck exam general surgery: Present: supple, trachea midline. Absent: lymphadenopathy - Respiratory Respiratory exam: Present: CTAB. Absent: accessory muscle use, rales, rhonchi, wheezes - Cardiovascular Cardiovascular exam: Present: RRR, +S1, +S2. Absent: diastolic murmur, gallop, rubs, systolic murmur - GI/Abdominal GI/Abdominal exam: Present: normal bowel sounds, soft, no peritoneal signs. Absent: distended, tenderness - Extremities Exam Extremities exam: Present: warm, radial pulses palpable and symmetrical. Absent : calf tenderness, cyanotic, pedal edema Additional comments: dressings i place in lower extremities - Neurological Exam Neurological exam: Present: CN II-XII intact, oriented X3, no focal deficits. Absent: pronater drift, facial droop, speech deficit - Skin Skin exam: Present: dry, intact Internal Medicine: Result - Labs CBC & Chem 7: 07/18/17 01:32 07/18/17 01:32 Labs: Short CBC 07/18/17 Range/Units 01:32 WBC 5.5 (4.3-11.1) K/mcL Hgb 9.5 L (12.9-16.9) g/dL Hct 30.7 L (37.5-50.1) % Plt Count 233 (140-400) K/mcL Neutrophils # 3.4 (1.6-8.9) K/mcL BMP 07/18/17 01:32 Sodium 138 Potassium 4.6 Chloride 104 Carbon Dioxide 25 BUN 53 H Creatinine 2.44 H Glucose 207 H Calcium 9.0 Liver Function 07/18/17 Range/Units 01:32 Total Bilirubin 0.3 (0.3-1.0) mg/dL AST 9 L (13-39) Units/L ALT 10 (7-52) Units/L Alkaline Phosphatase 99 (34-104) Units/L Albumin 3.6 (3.5-5.7) g/dL - ABG Interpretation ABG results: PT/INR, D-dimer PT 18.0 Seconds (9.4-12.1) H 07/14/17 16:12 Consult Discharge Plan - Plan Instructions: How to Check Your Blood Sugar (GEN), Diabetes Mellitus Type 2 in Adults (GEN), Meal Planning with Diabetes Exchanges (GEN), Managing Diabetes During Sick Days (GEN), Diabetic Hyperglycemia (GEN) Referrals: Girish Jara MD [Primary Care Provider] -
[2017-07-18] MEDS: *HR* Rivaroxaban 15 MG TABLET PO SCH (16:31)
[2017-07-18] MEDS: Spironolactone 25 MG TABLET PO SCH (19:44)
[2017-07-19 01:33] LABS: Basophils % 0.6 %; Eosinophils # 0.2 K/mcL (0.0-0.6); Eosinophils % 4.1 %; Hematocrit 30.7 % (37.5-50.1); Hemoglobin 9.3 g/dL (12.9-16.9); Immature Granulocytes % 0.2 % (0-4); Lymphocytes # 0.7 K/mcL (0.6-4.6); Lymphocytes % 14.1 %; Mean Corpuscular HGB Conc 30.3 g/dL (31.6-35.5); Mean Corpuscular Hemoglobin 26.3 pg (28.0-33.3); Mean Corpuscular Volume 86.7 fL (83.0-100.0); Mean Platelet Volume 9.9 fL (9.4-12.4); Monocytes # 0.5 K/mcL (0.0-1.3); Monocytes % 10.2 %; Neutrophils # 3.6 K/mcL (1.6-8.9); Platelet Count 234 K/mcL (140-400); Red Blood Count 3.54 M/mcL (4.19-5.50); Red Cell Distribution Width 17.1 % (11.5-14.5); Segmented Neutrophils % 70.8 %
[2017-07-19 01:56] LABS: Albumin 3.6 g/dL (3.5-5.7); Albumin/Globulin Ratio 1.1 (1.1-2.2); Bilirubin,Total 0.4 mg/dL (0.3-1.0); Calcium 9.1 mg/dL (8.6-10.3); Globulin 3.2 g/dL (2.4-3.5); Potassium 4.8 mEq/L (3.5-5.1); Total Protein 6.8 g/dL (6.4-8.9)
[2017-07-19] MEDS: Clindamycin 900 MG/50 ML 900 MG/50 ML IV.SOLN IVPB SCH ×4 (03:15→23:29)
[2017-07-19] MEDS: Levalbuterol Neb 1.25 MG/3 ML IH SCH ×4 (04:06→22:17)
[2017-07-19 05:31] LABS: Magnesium 2.7 mg/dL (1.6-2.6)
[2017-07-19] MEDS: Insulin LISPRO 300 UNITS/3 ML VIAL SQ SCH ×4 (08:54→19:51)
[2017-07-19] MEDS: amLODIPine 5 MG TABLET PO SCH (09:00)
[2017-07-19] MEDS: hydrALAZINE 10 MG TABLET PO SCH ×2 (09:00→19:51)
[2017-07-19] MEDS: BuPROPion XL (24 HR) 150 MG TABLET PO SCH (09:00)
[2017-07-19] MEDS: Metoprolol XL (24 HR) Succ 50 MG TAB.ER.24H PO SCH (09:00)
[2017-07-19] MEDS: Insulin DETEMIR 100 UNIT/ML X5UNITS SQ SCH ×2 (09:12→19:51)
--- NOTE | 2017-07-19 10:26 | Internal Med Progress Note ---
Date of Encounter: 07/19/17 Time of Encounter: 10:24 - Assessment and plan (1) SHANE (acute kidney injury) Current Visit: Yes Status: Acute Assessment and plan: Creatinine improved, but not quite back to baseline. Will add back PO lasix at 1/2 home dose at 40 mg PO QD as per below. Recheck BMP in AM. Plan for discharge home with home health tomorrow if respiratory status stable and renal function continues to improve. (2) Acute exacerbation of CHF (congestive heart failure) Current Visit: Yes Status: Acute Assessment and plan: Stable. Looks to be euvolemic at this time. Will add back home PO lasix at 1/ 2 dose of 40 mg PO QD. Continue strict I&Os and daily weights. Qualifiers: Heart failure type: diastolic Qualified Code(s): I50.33 - Acute on chronic diastolic (congestive) heart failure (3) Cellulitis of both lower extremities Current Visit: Yes Status: Acute Assessment and plan: Continue IV clindamycin and wound care. Transition to PO clindamycin at discharge. (4) Atrial fibrillation Current Visit: Yes Status: Chronic Assessment and plan: Continue home Xarelto and rate control with home metoprolol. Qualifiers: Atrial fibrillation type: chronic Qualified Code(s): I48.2 - Chronic atrial fibrillation (5) Unstable gait Current Visit: Yes Status: Chronic Assessment and plan: Continue fall/safety precautions, up with assist, bed rest w/bathroom privileges w/assist only. PT/OT consulted. (6) 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 underlying condition Current Visit: Yes Status: Chronic Assessment and plan: History of chronic diabetic ulcer of heel. Wound Care consult ordered to address daily wound care of foot ulcer and cellulitis of bilateral LEs. Diabetes Education consult ordered for patient education. Qualifiers: Laterality: right Non-pressure ulcer stage: limited to breakdown of skin Qualified Code(s): E08.621 - Diabetes mellitus due to underlying condition with foot ulcer; L97.411 - Non-pressure chronic ulcer of right heel and midfoot limited to breakdown of skin (7) Uncontrolled diabetes mellitus Current Visit: Yes Status: Chronic Assessment and plan: History of chronic diabetes controlled by insulin. Continue home BID insulin. Continue accuchecks and SSI QID AC/HS. 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 (9) HTN (hypertension) Current Visit: Yes Status: Chronic Assessment and plan: Continue home medications. Qualifiers: Hypertension type: essential hypertension Qualified Code(s): I10 - Essential (primary) hypertension (10) HLD (hyperlipidemia) Current Visit: Yes Status: Chronic Assessment and plan: Continue home medications. Qualifiers: Hyperlipidemia type: pure hypercholesterolemia Qualified Code(s): E78.00 - Pure hypercholesterolemia, unspecified; E78.0 - Pure hypercholesterolemia (11) CKD (chronic kidney disease) stage 3, GFR 30-59 ml/min Current Visit: Yes Status: Chronic Assessment and plan: Management of SHANE as per above. Will avoid nephrotoxins. Monitor I&O and daily weights. (12) DVT prophylaxis Current Visit: Yes Status: Acute Assessment and plan: Continue home xarelto. - Time Spent With Patient Total time spent is greater than 50% in coordination of care (as documented) at patient's floor/unit and/or counseling patient: less than 15 minutes - Subjective Interval history: Patient had no acute events overnight. He states that breathing remains good, about 75% back to his normal. He denies any SOB. Renal function is improving, but not quite near baseline creatinine of 1.7. He has no complaints at this time. - Constitutional Vitals: Temp Pulse Resp BP Pulse Ox 98.5 F 79 17 117/71 95 07/19/17 06:58 07/19/17 06:58 07/19/17 10:15 07/19/17 06:58 07/19/17 10:15 General appearance: Present: cooperative, A&O X 3, morbidly obese, pleasant, no acute distress, answers questions appropriately - Respiratory Respiratory exam: Present: CTAB. Absent: accessory muscle use, rales, rhonchi, wheezes Additional comments: Normal WOB - Cardiovascular Cardiovascular exam: Present: RRR, +S1, +S2. Absent: diastolic murmur, gallop, rubs, systolic murmur Additional comments: Trace BLE edema - GI/Abdominal GI/Abdominal exam: Present: normal bowel sounds, soft. Absent: distended, hepatomegaly, mass, splenomegaly, tenderness - Psychiatric Psychiatric exam: Present: normal affect, normal mood. Absent: agitated, anxious, depressed - Skin Skin exam: Present: dry, warm. Absent: cyanosis Additional comments: Dressings in place on BLE, no TTP, no surrounding erythema or induration Internal Medicine: Result - Labs CBC & Chem 7: 07/19/17 01:14 07/19/17 01:14 Labs: Short CBC 07/19/17 Range/Units 01:14 WBC 5.1 (4.3-11.1) K/mcL Hgb 9.3 L (12.9-16.9) g/dL Hct 30.7 L (37.5-50.1) % Plt Count 234 (140-400) K/mcL Neutrophils # 3.6 (1.6-8.9) K/mcL BMP 07/19/17 01:14 Sodium 138 Potassium 4.8 Chloride 105 Carbon Dioxide 26 BUN 55 H Creatinine 2.16 H Glucose 171 H Calcium 9.1 Liver Function 07/19/17 Range/Units 01:14 Total Bilirubin 0.4 (0.3-1.0) mg/dL AST 9 L (13-39) Units/L ALT 11 (7-52) Units/L Alkaline Phosphatase 98 (34-104) Units/L Albumin 3.6 (3.5-5.7) g/dL - ABG Interpretation ABG results: PT/INR, D-dimer PT 18.0 Seconds (9.4-12.1) H 07/14/17 16:12 - Impressions Impressions Chest X-Ray 07/18/17 10:27 IMPRESSION: Vascular congestion. D/ / 07/18/2017 12:53:29 Jozef Ribeiro MD / [facility] Interpreting Provider: Jozef Ribeiro MD - [facility] Contraindication No Overlap Therapy: Admin of oral Factor Xa Inhibitor Consult Discharge Plan - Plan Instructions: How to Check Your Blood Sugar (GEN), Diabetes Mellitus Type 2 in Adults (GEN), Meal Planning with Diabetes Exchanges (GEN), Managing Diabetes During Sick Days (GEN), Diabetic Hyperglycemia (GEN) Referrals: Girish Jara MD [Primary Care Provider] -
[2017-07-19] MEDS: Furosemide 40 MG TABLET PO SCH (11:37)
--- NOTE | 2017-07-19 15:40 | Palliative - Consult Note ---
Date of Encounter: 07/19/17 Time of Encounter: 11:00 - Assessment and Plan (1) Goals of care, counseling/discussion Current Visit: Yes Status: Acute Assessment and plan: Patient is awake alert and oriented wishes to be DNR CCA, DNI. As of care are to return home ultimately he is okay with short-term rehabilitation. But wants to continue to get aggressive care. (2) Acute exacerbation of CHF (congestive heart failure) Current Visit: Yes Status: Acute Assessment and plan: Management per the hospitalist team Qualifiers: Heart failure type: diastolic Qualified Code(s): I50.33 - Acute on chronic diastolic (congestive) heart failure (3) Bilateral leg edema Current Visit: No Status: Chronic Assessment and plan: Management per hospitalist team, patient is on Lasix and Aldactone. (4) Cellulitis of both feet Current Visit: No Status: Acute Assessment and plan: On antibiotics, plan per hospitalist team (5) Hyperglycemia due to type 2 diabetes mellitus Current Visit: No Status: Acute Assessment and plan: Sugars running in the 100s to 200s, and has been noncompliant in the past but apparently is doing much better in the hospital plan per hospitalist team Qualifiers: Diabetes mellitus load tester insulin use: without load tester use Qualified Code(s): E11.65 - Type 2 diabetes mellitus with hyperglycemia Palliative-CN HPI - Data of Consult Patient: new to practice Requesting Physician: Sharyn Fatima Primary Care Provider: Girish Jara - Consult Narrative Palliative Care/Comfort Measures: Palliative care History of present illness: Mr. Ramirez is a 67 year old male With a history of congestive heart failure and kidney disease and diabetes that is poorly controlled with insulin. She reported on arrival to the emergency department increasing shortness of breath dyspnea and dyspnea on exertion over the last 2-3 weeks increasing orthopnea bilateral pedal edema. His got worse with exertion or with rest being of legs increased abdominal girth intermittent very fleeting pleuritic left-sided chest pain that lasts for just a second or 2 , is not provoked by anything and does not radiate. She is noted in the physical in the [facility] record to be a poorly compliant patient with his diet and does not with his diabetes. Recent illness fever chills nausea vomiting headache changes in vision unusual bleeding abdominal pain diarrhea constipation dizziness lightheadedness presyncope or syncope. CC: Sharyn Fatima Evidence of breath Past Med Surg Social Fam HX - Past Medical History Medical history: atrial fibrillation, CHF, DVT, diabetes, hyperlipidemia, hypertension, other Psychiatric history: no psych history - Past Surgical History Surgical History: appendectomy, orthopedic, other - Social History Smoking Status: Former smoker Packs per day: 1 PPD - Reports quitting 30 years ago Smokeless Tobacco Status: No Alcohol use: none Drug use: none - Family History Mother Race: Family Member Ethnicity: Non- Living Status: Age at : 75 Cause of : DM complications Hx Family Endocrine Disorder: Yes (DM) Father Race: Family Member Ethnicity: Non- Living Status: Age at : 67 Cause of : Pancreatic cancer Hx Family Cancer: Yes (Pancreatic) Brother Race: Family Member Ethnicity: Non- Living Status: Still Living Hx Family Cancer: Yes Sister Race: Family Member Ethnicity: Non- Living Status: Still Living Hx Family Endocrine Disorder: Yes (DM) Medications and Allergies Atorvastatin [Lipitor] 40 mg PO HS 03/20/15 [History] Bupropion HCl [Wellbutrin Xl] 300 mg PO DAILY 03/20/15 [History] Metoprolol XL (24 HR) Succ [Toprol Xl] 150 mg PO DAILY 03/20/15 [History] Oxybutynin Chloride [Ditropan Xl] 10 mg PO DAILY 03/20/15 [History] Tamsulosin [Flomax] 0.4 mg PO DAILY 03/20/15 [History] Amlodipine Besylate 10 mg PO DAILY 12/12/16 [History] Furosemide [Lasix] 40 mg PO BIDDIURETIC tablet 12/23/16 [Rx] Insulin DETEMIR [Levemir] 34 unit SQ BID 01/17/17 [History] Insulin LISPRO [HumaLOG] 8 - 10 units SQ TIDWM 01/17/17 [History] Metformin HCl [Metformin HCl] 1,000 mg PO BID 07/14/17 [History] Rivaroxaban [Xarelto] 20 mg PO DAILY 07/14/17 [History] Spironolactone [Aldactone] 25 mg PO Q48H 07/14/17 [History] hydrALAZINE [HydrALAZINE] 10 mg PO BID 07/14/17 [History] 3 Allergy/AdvReac Type Severity Reaction Status Date / Time No Known Allergies Allergy Verified 07/14/17 16:19 - Constitutional Constitutional ROS PAL: no decreased appetite, no frequent falls, no lethargy - EENT Eyes: no discharge, no pain Ears: no ear discharge, no ear pain Ears, nose, mouth, throat: no dysphagia, no epistaxis, no facial pain, no hoarseness - Cardiovascular Cardiovascular ROS: chest pain, chest pain at rest, chest pain with activity, dyspnea on exertion, edema - Respiratory Respiratory: cough, dyspnea, dyspnea on exertion - Gastrointestinal Gastrointestinal: constipation, no diarrhea, no nausea, no vomiting - Genitourinary Genitourinary ROS male: no urinary frequency, no urinary hesitancy, no urinary incontinence - Musculoskeletal Musculoskeletal ROS IM: no muscle weakness, no myalgias, no neck pain - Integumentary ROS Integumentary: no skin ulcer, no sores, no unusual bruising - Neurological Neurological ROS: dizziness, lack of coordination (Rarely), no confusion - Psychiatric Psychiatric general PM: no change in appetite, no homicidal ideation, no hopelessness, no suicidal ideation - Endocrine Endocrine IM: other (IBD's) Palliative Care-Exam - Constitutional Vitals: Temp Pulse Resp BP Pulse Ox 97.8 F 64 16 127/76 94 07/19/17 11:29 07/19/17 11:29 07/19/17 11:29 07/19/17 11:29 07/19/17 11:29 General appearance: Present: no acute distress, obese - Head Head Exam: Present: atraumatic, normal inspection - Eye Eye exam: Present: normal appearance - ENT ENT exam: Present: mucous membranes moist - Respiratory Respiratory exam: Present: decreased breath sounds, rales - Cardiovascular Cardiovascular exam: Present: irregular rhythm - GI/Abdominal Exam GI/Abdominal exam: Present: normal bowel sounds, soft. Absent: tenderness - Extremities Exam Extremities exam: Present: pedal edema. Absent: normal inspection, tenderness - Neurological Exam Neurological exam: Present: alert, oriented X3 - Psychiatric Psychiatric exam: Present: normal affect, normal mood. Absent: agitated, anxious - Skin Skin exam: Present: dry, warm Internal Medicine - CN: Reslt - Labs CBC & Chem 7: 07/19/17 01:14 07/19/17 01:14 Labs: Short CBC 07/19/17 Range/Units 01:14 WBC 5.1 (4.3-11.1) K/mcL Hgb 9.3 L (12.9-16.9) g/dL Hct 30.7 L (37.5-50.1) % Plt Count 234 (140-400) K/mcL Neutrophils # 3.6 (1.6-8.9) K/mcL BMP 07/19/17 01:14 Sodium 138 Potassium 4.8 Chloride 105 Carbon Dioxide 26 BUN 55 H Creatinine 2.16 H Glucose 171 H Calcium 9.1 Liver Function 07/19/17 Range/Units 01:14 Total Bilirubin 0.4 (0.3-1.0) mg/dL AST 9 L (13-39) Units/L ALT 11 (7-52) Units/L Alkaline Phosphatase 98 (34-104) Units/L Albumin 3.6 (3.5-5.7) g/dL - ABG Interpretation ABG results: PT/INR, D-dimer PT 18.0 Seconds (9.4-12.1) H 07/14/17 16:12 Consult Discharge Plan - Plan Instructions: How to Check Your Blood Sugar (GEN), Diabetes Mellitus Type 2 in Adults (GEN), Meal Planning with Diabetes Exchanges (GEN), Managing Diabetes During Sick Days (GEN), Diabetic Hyperglycemia (GEN) Referrals: Girish Jara MD [Primary Care Provider] - Palliative Quality Palliative Quality: Screen for Code Status: Yes, Screen for Goals of Care: Yes, Screen for Pain: Yes, If Pain Regimen Started, Initiate Bowel Regimen: Yes, Screen for Nausea/Vomitting: Yes
[2017-07-19] MEDS: *HR* Rivaroxaban 15 MG TABLET PO SCH (16:43)
[2017-07-19] MEDS: Sennosides/Docusate Sodium TABLET PO SCH (19:51)
[2017-07-20 02:20] LABS: Basophils % 0.8 %; Eosinophils # 0.2 K/mcL (0.0-0.6); Eosinophils % 3.9 %; Hemoglobin 9.1 g/dL (12.9-16.9); Immature Granulocytes % 0.4 % (0-4); Lymphocytes # 0.9 K/mcL (0.6-4.6); Lymphocytes % 18.4 %; Mean Corpuscular HGB Conc 31.4 g/dL (31.6-35.5); Mean Corpuscular Hemoglobin 27.3 pg (28.0-33.3); Mean Corpuscular Volume 87.1 fL (83.0-100.0); Mean Platelet Volume 9.9 fL (9.4-12.4); Monocytes # 0.6 K/mcL (0.0-1.3); Neutrophils # 3.4 K/mcL (1.6-8.9); Platelet Count 226 K/mcL (140-400); Red Blood Count 3.33 M/mcL (4.19-5.50); Red Cell Distribution Width 17.1 % (11.5-14.5); Segmented Neutrophils % 65.5 %
[2017-07-20 02:38] LABS: Potassium 4.9 mEq/L (3.5-5.1)
[2017-07-20] MEDS: Levalbuterol Neb 1.25 MG/3 ML IH SCH ×2 (03:37→11:02)
[2017-07-20] MEDS: Insulin LISPRO 300 UNITS/3 ML VIAL SQ SCH ×2 (07:51→12:44)
[2017-07-20] MEDS: Clindamycin 900 MG/50 ML 900 MG/50 ML IV.SOLN IVPB SCH (09:31)
[2017-07-20] MEDS: BuPROPion XL (24 HR) 150 MG TABLET PO SCH (09:32)
[2017-07-20] MEDS: Sennosides/Docusate Sodium TABLET PO SCH (09:32)
[2017-07-20] MEDS: Furosemide 40 MG TABLET PO SCH (09:32)
[2017-07-20] MEDS: Metoprolol XL (24 HR) Succ 50 MG TAB.ER.24H PO SCH (09:32)
[2017-07-20] MEDS: amLODIPine 5 MG TABLET PO SCH (09:32)
[2017-07-20] MEDS: hydrALAZINE 10 MG TABLET PO SCH (09:32)
[2017-07-20] MEDS: Insulin DETEMIR 100 UNIT/ML X5UNITS SQ SCH (09:55)
--- NOTE | 2017-07-20 10:01 | Palliative Progress Note ---
Date of Encounter: 07/20/17 Time of Encounter: 09:15 - Assessment and plan (1) Goals of care, counseling/discussion Current Visit: Yes Status: Acute Assessment and plan: CODE STATUS well-established DNR CCA DNI. Patient will have medical power of ip technology transactions attorney paperwork done today with social work. Patient is open to the idea of cardiac rehabilitation at the end of hospitalization as he is feeling weaker, ultimate goal is to go home. (2) Acute exacerbation of CHF (congestive heart failure) Current Visit: Yes Status: Acute Assessment and plan: Plan per hospitalist team, of note the patient does describe what sounds like orthostatic hypotension whenever he tries to get up may be quite severe I have reminded him to get up very very slowly which she is already noted does make him better in doing so. The patient might very well respond well to cardiac rehabilitation. Qualifiers: Heart failure type: diastolic Qualified Code(s): I50.33 - Acute on chronic diastolic (congestive) heart failure (3) Bilateral leg edema Current Visit: No Status: Chronic Assessment and plan: Patient is on diuretics plan per hospitalist team (4) Cellulitis of both feet Current Visit: No Status: Acute Assessment and plan: White count is currently normal no fever. Plan per hospitalist team patient is on antibiotics (5) Hyperglycemia due to type 2 diabetes mellitus Current Visit: No Status: Acute Assessment and plan: Sugars running in 100s to 200s as low as 77 as high as 263. Plan per hospitalist team Qualifiers: Diabetes mellitus keno terminal operator insulin use: without keno terminal operator use Qualified Code(s): E11.65 - Type 2 diabetes mellitus with hyperglycemia - Time Spent With Patient Total time spent is greater than 50% in coordination of care (as documented) at patient's floor/unit and/or counseling patient: - Subjective Interval history: Patient is complaining more this morning about the fleeting pleuritic type chest pain that he had when he first came in. States that his heart is not doing as well in that it feels like it is more irregular than usual. The patient continues to be on room air, with good sats Patient does report his bowels are starting to move. - Constitutional Vitals: Abnormal lab results RBC 3.33 M/mcL (4.19-5.50) L 07/20/17 01:50 Hgb 9.1 g/dL (12.9-16.9) L 07/20/17 01:50 Hct 29.0 % (37.5-50.1) L 07/20/17 01:50 MCH 27.3 pg (28.0-33.3) L 07/20/17 01:50 MCHC 31.4 g/dL (31.6-35.5) L 07/20/17 01:50 RDW 17.1 % (11.5-14.5) H 07/20/17 01:50 PT 18.0 Seconds (9.4-12.1) H 07/14/17 16:12 APTT 46.2 Seconds (26.0-36.0) H 07/14/17 16:12 BUN 53 mg/dL (8-23) H 07/20/17 01:50 Creatinine 2.15 mg/dL (0.70-1.30) H 07/20/17 01:50 Est GFR ( Amer) 37 (> 60) L 07/20/17 01:50 Est GFR (Non-Af Amer) 31 (> 60) L 07/20/17 01:50 Hemoglobin A1c 9.4 % (-5.6) H 07/15/17 01:37 Magnesium 2.7 mg/dL (1.6-2.6) H 07/19/17 01:14 AST 9 Units/L (13-39) L 07/19/17 01:14 B-Natriuretic Peptide 143 pg/mL (Less than 100) H 07/14/17 16:12 HDL Cholesterol 36 mg/dL (40-59) L 07/15/17 01:37 General appearance: Present: no acute distress - Respiratory Respiratory exam: Present: decreased breath sounds - Cardiovascular Cardiovascular exam: Present: irregular rhythm (Very irregular) - GI/Abdominal GI/Abdominal exam: Present: normal bowel sounds, soft. Absent: tenderness - Extremities Exam Extremities exam: Present: pedal edema - Neurological Exam Neurological exam: Present: alert, oriented X3 - Psychiatric Psychiatric exam: Absent: agitated, anxious - Skin Skin exam: Present: dry, warm Palliative Quality Palliative Quality: Screen for Code Status: Yes, Screen for Goals of Care: Yes, Screen for Pain: Yes, If Pain Regimen Started, Initiate Bowel Regimen: Yes, Screen for Nausea/Vomitting: Yes - Labs CBC & Chem 7: 07/20/17 01:50 07/20/17 01:50 Labs: Laboratory Results - last 24 hr 07/19/17 07/19/17 07/19/17 11:24 16:16 19:31 WBC RBC Hgb Hct MCV MCH MCHC RDW Plt Count MPV Immature Gran % Seg Neutrophils % Lymphocytes % Monocytes % Eosinophils % Basophils % Neutrophils # Lymphocytes # Monocytes # Eosinophils # Basophils # Sodium Potassium Chloride Carbon Dioxide BUN Creatinine Est GFR ( Amer) Est GFR (Non-Af Amer) BUN/Creatinine Ratio Glucose POC Glucose 263 H 273 H 209 H Calculated Osmolality Calcium 07/20/17 07/20/17 07/20/17 01:50 01:50 07:38 WBC 5.1 RBC 3.33 L Hgb 9.1 L Hct 29.0 L MCV 87.1 MCH 27.3 L MCHC 31.4 L RDW 17.1 H Plt Count 226 MPV 9.9 Immature Gran % 0.4 Seg Neutrophils % 65.5 Lymphocytes % 18.4 Monocytes % 11.0 Eosinophils % 3.9 Basophils % 0.8 Neutrophils # 3.4 Lymphocytes # 0.9 Monocytes # 0.6 Eosinophils # 0.2 Basophils # 0.0 Sodium 138 Potassium 4.9 Chloride 106 Carbon Dioxide 26 BUN 53 H Creatinine 2.15 H Est GFR ( Amer) 37 L Est GFR (Non-Af Amer) 31 L BUN/Creatinine Ratio 25 Glucose 86 POC Glucose 77 Calculated Osmolality 300 Calcium 9.0 - ABG Interpretation ABG results: PT/INR, D-dimer PT 18.0 Seconds (9.4-12.1) H 07/14/17 16:12 Consult Discharge Plan - Plan Instructions: How to Check Your Blood Sugar (GEN), Diabetes Mellitus Type 2 in Adults (GEN), Meal Planning with Diabetes Exchanges (GEN), Managing Diabetes During Sick Days (GEN), Diabetic Hyperglycemia (GEN) Referrals: Girish Jara MD [Primary Care Provider] -
--- NOTE | 2017-07-20 11:00 | Discharge Summary ---
- NOTES TO OUTPATIENT PROVIDER Notes to Outpatient Provider: Follow up with PCP in 2-3 days after discharge. Recheck BMP (SHANE on CKD) at that time. Adjust lasix as necessary. Referred to cardiac rehabilitation and home PT/OT. Date of Encounter: 07/20/17 Time of Encounter: 10:58 - Discharge Diagnosis (1) Acute exacerbation of CHF (congestive heart failure) Priority: Primary Status: Acute Qualifiers: Heart failure type: diastolic Qualified Code(s): I50.33 - Acute on chronic diastolic (congestive) heart failure (2) SHANE (acute kidney injury) Priority: Secondary Status: Acute (3) Cellulitis of both lower extremities Priority: Secondary Status: Acute (4) Atrial fibrillation Priority: Secondary Status: Chronic Qualifiers: Atrial fibrillation type: chronic Qualified Code(s): I48.2 - Chronic atrial fibrillation (5) Unstable gait Priority: Secondary Status: Chronic (6) 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 underlying condition Priority: Secondary Status: Chronic Qualifiers: Laterality: right Non-pressure ulcer stage: limited to breakdown of skin Qualified Code(s): E08.621 - Diabetes mellitus due to underlying condition with foot ulcer; L97.411 - Non-pressure chronic ulcer of right heel and midfoot limited to breakdown of skin (7) Uncontrolled diabetes mellitus Priority: Secondary Status: Chronic Qualifiers: Diabetes mellitus type: type 2 Diabetes mellitus usp insulin use: unspecified supervisor long goods insulin use status Diabetes mellitus complication status : with unspecified complications Qualified Code(s): E11.8 - Type 2 diabetes mellitus with unspecified complications; E11.65 - Type 2 diabetes mellitus with hyperglycemia (8) Hx of deep venous thrombosis Priority: Secondary Status: Chronic (9) HTN (hypertension) Priority: Secondary Status: Chronic Qualifiers: Hypertension type: essential hypertension Qualified Code(s): I10 - Essential (primary) hypertension (10) HLD (hyperlipidemia) Priority: Secondary Status: Chronic Qualifiers: Hyperlipidemia type: pure hypercholesterolemia Qualified Code(s): E78.00 - Pure hypercholesterolemia, unspecified; E78.0 - Pure hypercholesterolemia (11) CKD (chronic kidney disease) stage 3, GFR 30-59 ml/min Priority: Secondary Status: Chronic (12) DVT prophylaxis Priority: Secondary Status: Acute Hospital course: Mr. Ramirez is a 67 year old male admitted for acute exacerbation of CHF and BLE cellulitis. He was admitted to general medical floor. He was started on IV lasix for CHF exacerbation. He was started on IV clindamycin for BLE cellulitis. Wound care was consulted for BLE wounds. He diuresed well and respiratory status improved. He developed SHANE on CKD, so diuretics were stopped. Respiratory status remained stable off of diuretics while renal function improved. With improvement of renal function, home lasix was restarted at reduced dose of 40 mg PO QD. He will follow up with PCP in 2-3 days after discharge. BMP can be checked at that time to monitor SHANE on CKD. Lasix can be adjusted at that time. He will be referred to home health with home PT/OT, and cardiac rehabilitation. He will complete 7 more days of PO clindamycin. Patient has met maximum benefit of this hospitalization and will be discharged home with home health in stable condition. Discharge discussed with: patient, nurse, social work - Time Spent with Patient Total time spent providing and/or coordinating discharge services: Greater than 30 minutes - Discharge Medications Prescriptions: Clindamycin HCl [Cleocin HCl] 300 mg PO Q6H #30 cap Furosemide [Lasix] 40 mg PO DAILY 14 Days #14 tablet Home Medications: Atorvastatin [Lipitor] 40 mg PO HS 03/20/15 [History] Bupropion HCl [Wellbutrin Xl] 300 mg PO DAILY 03/20/15 [History] Metoprolol XL (24 HR) Succ [Toprol Xl] 150 mg PO DAILY 03/20/15 [History] Oxybutynin Chloride [Ditropan Xl] 10 mg PO DAILY 03/20/15 [History] Tamsulosin [Flomax] 0.4 mg PO DAILY 03/20/15 [History] Amlodipine Besylate 10 mg PO DAILY 12/12/16 [History] Insulin DETEMIR [Levemir] 34 unit SQ BID 01/17/17 [History] Insulin LISPRO [HumaLOG] 8 - 10 units SQ TIDWM 01/17/17 [History] Metformin HCl 1,000 mg PO BID 07/14/17 [History] Rivaroxaban [Xarelto] 20 mg PO DAILY 07/14/17 [History] Spironolactone [Aldactone] 25 mg PO Q48H 07/14/17 [History] hydrALAZINE [HydrALAZINE] 10 mg PO BID 07/14/17 [History] Clindamycin HCl [Cleocin HCl] 300 mg PO Q6H #30 cap 07/20/17 [Rx] Furosemide [Lasix] 40 mg PO DAILY 14 Days #14 tablet 07/20/17 [Rx] Allergies/Adverse Reactions: 3 Allergy/AdvReac Type Severity Reaction Status Date / Time No Known Allergies Allergy Verified 07/14/17 16:19 Date of admission: 07/14/17 18:56 Primary care physician: Girish Jara Consults: 07/14/17 19:08 Consult to Diabetes Education [CONS] Routine Comment: Reason for Consult: Patient has poorly-controlled diabetes and does not follow diabetic diet. As a result, pt. has pedal edema, cellulitis, and CHF exacerbation. Pt. needs diet education. Consult to Wound Care [CONS] Routine Reason for Consult: Patient has bilateral cellulitis of the LEs. Please make recommendations for daily wound care. Call Completed: No 07/17/17 11:02 Consult to Palliative Care [CONS] Routine Comment: Consulting Provider: Palliative Care Zara Reason for Consult: goals of care Call Completed: Yes Discharging clinician: Fernando Yoder Anticipated date of discharge: 07/20/17 - Constitutional Vitals: Temp Pulse Resp BP Pulse Ox 97.7 F 64 17 129/81 94 07/20/17 07:34 07/20/17 07:34 07/20/17 07:34 07/20/17 07:34 07/20/17 07:34 General appearance: Present: cooperative, A&O X 3, morbidly obese, pleasant, no acute distress, answers questions appropriately - Respiratory Respiratory exam: Present: CTAB. Absent: accessory muscle use, rales, rhonchi, wheezes Additional comments: Normal WOB - Cardiovascular Cardiovascular exam: Present: +S1, +S2. Absent: diastolic murmur, gallop, rubs , systolic murmur Additional comments: Irregularly irregular rhythm, regular rate, trace BLE edema - GI/Abdominal GI/Abdominal exam: Present: normal bowel sounds, soft. Absent: distended, hepatomegaly, mass, splenomegaly, tenderness - Psychiatric Psychiatric exam: Present: normal affect, normal mood. Absent: agitated, anxious, depressed - Skin Skin exam: Present: dry, warm. Absent: cyanosis Additional comments: Dressings in place on BLE, no TTP, no surrounding erythema or induration - Patient Status Disposition: Home Health Service Condition: Good Overall status at discharge: patient is progressing back to baseline - Discharge Instructions Instructions: How to Check Your Blood Sugar (GEN), Diabetes Mellitus Type 2 in Adults (GEN), Meal Planning with Diabetes Exchanges (GEN), Managing Diabetes During Sick Days (GEN), Diabetic Hyperglycemia (GEN) Follow Up With: Girish Jara MD [Primary Care Provider] - Additional Instructions: Follow up with PCP in 2-3 days after discharge. Recheck BMP (SHANE on CKD) at that time. Adjust lasix as necessary. Referred to cardiac rehabilitation and home PT/OT. - Diet and Activity Activity: as per physical therapy Diet: diabetic diet, low fat, low cholesterol, low salt diet, other (Cardiac Diet, Renal Diet) - VTE Contraindication No Overlap Therapy: Admin of oral Factor Xa Inhibitor
--- NOTE | 2017-07-20 11:14 | Physician Discharge Referral ---
Home Health/Hosp Referral Info Transfer to: Home Health Provider in Charge Post Discharge: PCP - Diagnosis (1) Acute exacerbation of CHF (congestive heart failure) Priority: Primary Status: Acute (2) SHANE (acute kidney injury) Priority: Secondary Status: Acute (3) Cellulitis of both lower extremities Priority: Secondary Status: Acute (4) Atrial fibrillation Priority: Secondary Status: Chronic (5) Unstable gait Priority: Secondary Status: Chronic (6) 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 underlying condition Priority: Secondary Status: Chronic (7) Uncontrolled diabetes mellitus Priority: Secondary Status: Chronic (8) Hx of deep venous thrombosis Priority: Secondary Status: Chronic (9) HTN (hypertension) Priority: Secondary Status: Chronic (10) HLD (hyperlipidemia) Priority: Secondary Status: Chronic (11) CKD (chronic kidney disease) stage 3, GFR 30-59 ml/min Priority: Secondary Status: Chronic (12) DVT prophylaxis Priority: Secondary Status: Acute - Respiratory Orders None Smoking Cessation: Smoking cessation has been advised. For more information, call the [facility] Tobacco Quit Line at 1-670-ICUQ-NOW. - Dressing/Wound Care Site: BLE wound dressing changes per wound care recommendations. - Diet/Nutrition Diet/Nutrition Orders: No Added Salt (CORTNEY), Renal, Cardiac, No Concentrated Sweets Diet/Nutrition: List: Diabetic Diet - Activity Activity: List: Per physical therapy - Services Needed Following services are medically necessary services: Nursing, Physical Therapy, Occupational Therapy Home Care Orders: Cardiac Rehabilitation - Transfer Medications Prescriptions: Clindamycin HCl [Cleocin HCl] 300 mg PO Q6H #30 cap Furosemide [Lasix] 40 mg PO DAILY 14 Days #14 tablet Home Medications: Atorvastatin [Lipitor] 40 mg PO HS 03/20/15 [History] Bupropion HCl [Wellbutrin Xl] 300 mg PO DAILY 03/20/15 [History] Metoprolol XL (24 HR) Succ [Toprol Xl] 150 mg PO DAILY 03/20/15 [History] Oxybutynin Chloride [Ditropan Xl] 10 mg PO DAILY 03/20/15 [History] Tamsulosin [Flomax] 0.4 mg PO DAILY 03/20/15 [History] Amlodipine Besylate 10 mg PO DAILY 12/12/16 [History] Insulin DETEMIR [Levemir] 34 unit SQ BID 01/17/17 [History] Insulin LISPRO [HumaLOG] 8 - 10 units SQ TIDWM 01/17/17 [History] Metformin HCl 1,000 mg PO BID 07/14/17 [History] Rivaroxaban [Xarelto] 20 mg PO DAILY 07/14/17 [History] Spironolactone [Aldactone] 25 mg PO Q48H 07/14/17 [History] hydrALAZINE [HydrALAZINE] 10 mg PO BID 07/14/17 [History] Clindamycin HCl [Cleocin HCl] 300 mg PO Q6H #30 cap 07/20/17 [Rx] Furosemide [Lasix] 40 mg PO DAILY 14 Days #14 tablet 07/20/17 [Rx] Allergies/Adverse Reactions: 3 Allergy/AdvReac Type Severity Reaction Status Date / Time No Known Allergies Allergy Verified 07/14/17 16:19 Certification: Further, I certify that my clinical findings support that this patient is homebound (i.e. absences from home require considerable and taxing effort and are for medical reasons or cheondoism services or infrequently or short duration when for other reasons) because: acute on chronic CHF, BLE cellulitis, AFib, SHANE on CKD, DM Type II with Diabetic Foot Ulcer, History DVTs, and unstable gait. Homebound Reason: Patient requires assistance of a person or device to safely leave home, Leaving home requires considerable and taxing effort due to condition, Severity of cardiac or pulmonary status limits activity tolerance Attestation: My signature below is to certify that this patient is under my care and that I, or nurse practitioner, or a physician's education administrative assistant working with me, has a face-to -face encounter with this patient.
[2017-07-20 11:51] VITALS: BP 112/71
--- NOTE | 2017-07-20 12:16 | Electrocardiograph Report ---
[address] [address] Test Date: 2017-07-19 Pat Name: Michael Ramirez Department: 114 Room: [facility] Gender: M Survey Project Manager: [id number] : 1950 Requested By: Clary Hicks Order Number: [id number] Reading MD: Ten Biswas Measurements Intervals [place] Rate: 58 P: [place]: 0 QRS: 30 QRSD: 106 T: 30 QT: 398 QTc: 395 Interpretive Statements ATRIAL FIBRILLATION WITH SLOW VENTRICULAR RESPONSE Poor R wave progression BASELINE ARTIFACT Electronically Signed On 07-20-2017 12:15:05 EDT by Ten Biswas
--- NOTE | 2017-07-24 10:38 | Electrocardiograph Report ---
[place] [address] Test Date: 2017-07-20 Pat Name: Michael Ramirez Department: 114 Room: [facility] Gender: M Greenskeeper Supervisor: HARISH : 1950 Requested By: Sharyn Fatima Order Number: [id number] Reading MD: Kemar Wu Measurements Intervals [place] Rate: 74 P: [place]: 0 QRS: 48 QRSD: 100 T: 29 QT: 389 QTc: 417 Interpretive Statements ATRIAL FIBRILLATION PVC OR ABERRANT CONDUCTION Electronically Signed On 07-24-2017 10:37:19 EDT by Kemar Wu
== END 2017-07-20 13:28 | disposition home health service (06) | DRG 291 ==
LOC: EMEROO 14:32 → 3NENU 14:32
PROVIDERS: ADMIT Internal Medicine Nephrology; ATTEND Internal Medicine Nephrology

== ENCOUNTER 2018-09-15 17:31 | Inpatient (IN) ==
[2018-09-15 20:13] LABS: Basophils % 0.5 %; Mean Platelet Volume 10.7 fL (9.4-12.4); Red Cell Distribution Width 16.7 % (11.5-14.5)
[2018-09-15 20:14] LABS: Eosinophils # 0.2 K/mcL (0.0-0.6); Eosinophils % 2.4 %; Hematocrit 38.2 % (37.5-50.1); Immature Granulocytes % 0.5 % (0-4); Lymphocytes # 0.8 K/mcL (0.6-4.6); Lymphocytes % 9.8 %; Mean Corpuscular HGB Conc 28.8 g/dL (31.6-35.5); Mean Corpuscular Hemoglobin 25.9 pg (28.0-33.3); Mean Corpuscular Volume 90.1 fL (83.0-100.0); Monocytes # 0.6 K/mcL (0.0-1.3); Monocytes % 7.5 %; Neutrophils # 6.2 K/mcL (1.6-8.9); Platelet Count 233 K/mcL (140-400); Red Blood Count 4.24 M/mcL (4.19-5.50); Segmented Neutrophils % 79.3 %; White Blood Count 7.8 K/mcL (4.3-11.1)
[2018-09-15 20:31] LABS: Calcium 7.7 mg/dL (8.6-10.3); Potassium 4.5 mEq/L (3.5-5.1)
[2018-09-15 20:51] LABS: Anisocytosis 1+ (Not Present); Hypochromasia Present (Not Present); Macrocytosis Present (Not Present); Polychromasia 1+ (Not Present)
[2018-09-15 20:52] LABS: Platelet Estimate Normal (Normal)
[2018-09-15 21:02] LABS: Bacteria,Urine Many per hpf (None-Few); Bilirubin,Urine Negative (Negative); Blood,Urine Moderate (Negative); Clarity,Urine Cloudy (Clear); Color,Urine Yellow (Yellow); Glucose,Urine (UA) >=1000 mg/dL (Normal); Ketones,Urine Negative (Negative); Leukocyte Esterase,Urine Moderate (Negative); Nitrite,Urine Positive (Negative); Protein,Urine >=1000 mg/dL (Neg-Trace); Specific Gravity,Urine 1.024 (1.010-1.025); Squamous Epithelial Cell,Urine Many per lpf (None-Few); Urobilinogen,Urine Normal (Normal); WBC,Urine TNTC per hpf (0-3)
[2018-09-15] MEDS ORDERED: cefTRIAXone 1,000 MG in Water for inj. (sterile) 10 ML IVP ONE (21:17)
[2018-09-16] MEDS ORDERED: Naloxone 0.4 MG/ML INJ IVP PRN (00:06)
[2018-09-16] MEDS ORDERED: Nystatin Cream 15 GM TUBE TP PRN (00:10)
[2018-09-16] MEDS ORDERED: D5% in Water 1,000 ML IVC PRN (00:13)
[2018-09-16] MEDS ORDERED: Dextrose Gel 15 GM/37.5 ML TUBE PO PRN ×2 (00:13)
[2018-09-16] MEDS ORDERED: *HR* Dextrose 50 % in Water (Syg) 50 ML SYRINGE IVP PRN (00:13)
[2018-09-16] MEDS ORDERED: Acetaminophen 325 MG TABLET PO PRN (02:48)
[2018-09-16 07:23] LABS: Hematocrit 38.7 % (37.5-50.1); Hemoglobin 10.8 g/dL (12.9-16.9); Mean Corpuscular HGB Conc 27.9 g/dL (31.6-35.5); Mean Corpuscular Hemoglobin 25.3 pg (28.0-33.3); Mean Corpuscular Volume 90.6 fL (83.0-100.0); Mean Platelet Volume 10.9 fL (9.4-12.4); Platelet Count 202 K/mcL (140-400); Red Blood Count 4.27 M/mcL (4.19-5.50); Red Cell Distribution Width 16.6 % (11.5-14.5); White Blood Count 6.6 K/mcL (4.3-11.1)
[2018-09-16 07:45] LABS: Calcium 7.8 mg/dL (8.6-10.3); Potassium 4.4 mEq/L (3.5-5.1)
[2018-09-16] MEDS: cefTRIAXone 1,000 MG in Water for inj. (sterile) 10 ML IVP SCH (08:06)
[2018-09-16] MEDS: Insulin LISPRO 300 UNITS/3 ML VIAL SQ SCH ×4 (08:06→21:05)
[2018-09-16 08:23] LABS: Lymphocytes # 0.7 K/mcL (0.6-4.6); Monocytes # 0.3 K/mcL (0.0-1.3); Neutrophils # 5.7 K/mcL (1.6-8.9)
[2018-09-16 08:24] LABS: Platelet Estimate Normal (Normal)
[2018-09-16] MEDS ORDERED: Insulin DETEMIR 100 UNIT/ML X5UNITS SQ SCH (21:00)
[2018-09-17 07:28] LABS: Immature Granulocytes % 0.4 % (0-4); Red Cell Distribution Width 16.6 % (11.5-14.5)
[2018-09-17 07:29] LABS: Basophils % 0.6 %; Eosinophils # 0.2 K/mcL (0.0-0.6); Eosinophils % 2.6 %; Hematocrit 37.4 % (37.5-50.1); Hemoglobin 10.6 g/dL (12.9-16.9); Lymphocytes # 0.9 K/mcL (0.6-4.6); Mean Corpuscular HGB Conc 28.3 g/dL (31.6-35.5); Mean Corpuscular Hemoglobin 25.3 pg (28.0-33.3); Mean Corpuscular Volume 89.3 fL (83.0-100.0); Mean Platelet Volume 10.7 fL (9.4-12.4); Monocytes # 0.6 K/mcL (0.0-1.3); Monocytes % 8.1 %; Neutrophils # 5.3 K/mcL (1.6-8.9); Platelet Count 234 K/mcL (140-400); Red Blood Count 4.19 M/mcL (4.19-5.50); Segmented Neutrophils % 75.3 %
[2018-09-17 07:48] LABS: Potassium 4.3 mEq/L (3.5-5.1)
[2018-09-17 08:06] LABS: Hypochromasia Present (Not Present)
[2018-09-17] MEDS: amLODIPine 5 MG TABLET PO SCH (09:09)
[2018-09-17] MEDS: cefTRIAXone 1,000 MG in Water for inj. (sterile) 10 ML IVP SCH (09:09)
[2018-09-17] MEDS: BuPROPion XL (24 HR) 150 MG TABLET PO SCH (09:09)
[2018-09-17] MEDS: Insulin LISPRO 300 UNITS/3 ML VIAL SQ SCH ×4 (09:10→20:19)
[2018-09-17] MEDS: Furosemide 40 MG in 0.9 % Sodium Chloride 50 ML IV SCH ×2 (13:42→20:18)
[2018-09-17] MEDS: Insulin DETEMIR 100 UNIT/ML X5UNITS SQ SCH (20:19)
[2018-09-18 06:25] LABS: Magnesium 2.1 mg/dL (1.6-2.6); Potassium 4.6 mEq/L (3.5-5.1)
[2018-09-18] MEDS ORDERED: NON-FORMULARY MEDICATION 1 EACH EACH (Bupropion Hcl [Wellbutrin Xl] 300 MG) PO SCH (09:00)
[2018-09-18] MEDS: amLODIPine 5 MG TABLET PO SCH (09:13)
[2018-09-18] MEDS: Metoprolol XL (24 HR) Succ 50 MG TAB.ER.24H PO SCH (09:13)
[2018-09-18] MEDS: BuPROPion XL (24 HR) 150 MG TABLET PO SCH (09:13)
[2018-09-18] MEDS: cefTRIAXone 1,000 MG in Water for inj. (sterile) 10 ML IVP SCH (09:14)
[2018-09-18] MEDS: Insulin LISPRO 300 UNITS/3 ML VIAL SQ SCH ×4 (09:14→21:17)
[2018-09-18] MEDS: Furosemide 40 MG in 0.9 % Sodium Chloride 50 ML IV SCH (09:14)
[2018-09-18] MEDS: Insulin DETEMIR 100 UNIT/ML X5UNITS SQ SCH ×2 (09:15→21:17)
[2018-09-18] MEDS ORDERED: Furosemide 40 MG/4 ML VIAL IVP SCH (09:18)
[2018-09-18] MEDS ORDERED: Furosemide 40 MG/4 ML VIAL IVP ONE (09:58)
[2018-09-18] MEDS: Ertapenem 1,000 MG in 0.9 % Sodium Chloride Mini Bag 100 ML IVPB SCH (11:50)
[2018-09-18] MEDS ORDERED: NON-FORMULARY MEDICATION 1 EACH EACH (Amlodipine Besylate 10 MG) PO SCH (12:30)
[2018-09-18] MEDS: Furosemide 40 MG/4 ML VIAL IVP SCH (16:47)
[2018-09-18] MEDS: *HR* Heparin 5,000 UNIT/ML VIAL SQ SCH (16:47)
[2018-09-19] MEDS ORDERED: Melatonin 3 MG TABLET PO ONE (00:30)
[2018-09-19] MEDS: *HR* Heparin 5,000 UNIT/ML VIAL SQ SCH ×2 (05:53→16:48)
[2018-09-19 07:44] LABS: Basophils % 0.5 %; Hemoglobin 10.9 g/dL (12.9-16.9); Red Cell Distribution Width 16.6 % (11.5-14.5)
[2018-09-19 07:46] LABS: Eosinophils # 0.4 K/mcL (0.0-0.6); Eosinophils % 4.5 %; Hematocrit 38.3 % (37.5-50.1); Immature Granulocytes % 0.4 % (0-4); Lymphocytes # 1.1 K/mcL (0.6-4.6); Lymphocytes % 13.1 %; Mean Corpuscular HGB Conc 28.5 g/dL (31.6-35.5); Mean Corpuscular Volume 87.8 fL (83.0-100.0); Mean Platelet Volume 10.3 fL (9.4-12.4); Monocytes # 0.8 K/mcL (0.0-1.3); Monocytes % 10.1 %; Neutrophils # 5.7 K/mcL (1.6-8.9); Platelet Count 254 K/mcL (140-400); Red Blood Count 4.36 M/mcL (4.19-5.50); Segmented Neutrophils % 71.4 %
[2018-09-19 08:04] LABS: Calcium 8.2 mg/dL (8.6-10.3); Potassium 4.8 mEq/L (3.5-5.1)
[2018-09-19] MEDS: Insulin LISPRO 300 UNITS/3 ML VIAL SQ SCH ×4 (08:30→21:59)
[2018-09-19 08:46] LABS: Anisocytosis 1+ (Not Present); Hypochromasia Present (Not Present)
[2018-09-19 08:47] LABS: Microcytosis Present (Not Present); Platelet Estimate Normal (Normal)
[2018-09-19] MEDS: amLODIPine 5 MG TABLET PO SCH (09:48)
[2018-09-19] MEDS: Furosemide 40 MG/4 ML VIAL IVP SCH ×2 (09:48→16:47)
[2018-09-19] MEDS: Insulin DETEMIR 100 UNIT/ML X5UNITS SQ SCH ×2 (09:48→22:08)
[2018-09-19] MEDS: BuPROPion XL (24 HR) 150 MG TABLET PO SCH (09:49)
[2018-09-19] MEDS: Metoprolol XL (24 HR) Succ 50 MG TAB.ER.24H PO SCH (09:49)
[2018-09-19] MEDS: Ertapenem 1,000 MG in 0.9 % Sodium Chloride Mini Bag 100 ML IVPB SCH (09:56)
[2018-09-19] MEDS: Miconazole 2% ointment 141 APPL/141 GM TUBE TP SCH ×2 (13:55→21:59)
[2018-09-20] MEDS: *HR* Heparin 5,000 UNIT/ML VIAL SQ SCH ×2 (05:34→16:38)
[2018-09-20 06:58] LABS: Calcium 8.3 mg/dL (8.6-10.3); Potassium 4.8 mEq/L (3.5-5.1)
[2018-09-20] MEDS: Insulin LISPRO 300 UNITS/3 ML VIAL SQ SCH ×4 (08:26→20:57)
[2018-09-20] MEDS: amLODIPine 5 MG TABLET PO SCH (09:37)
[2018-09-20] MEDS: Furosemide 40 MG/4 ML VIAL IVP SCH ×2 (09:37→16:37)
[2018-09-20] MEDS: Ertapenem 1,000 MG in 0.9 % Sodium Chloride Mini Bag 100 ML IVPB SCH (09:37)
[2018-09-20] MEDS: BuPROPion XL (24 HR) 150 MG TABLET PO SCH (09:38)
[2018-09-20] MEDS: Metoprolol XL (24 HR) Succ 50 MG TAB.ER.24H PO SCH (09:38)
[2018-09-20] MEDS: Insulin DETEMIR 100 UNIT/ML X5UNITS SQ SCH ×2 (09:39→20:57)
[2018-09-20] MEDS: Miconazole 2% ointment 141 APPL/141 GM TUBE TP SCH ×2 (10:03→20:57)
[2018-09-21] MEDS: *HR* Heparin 5,000 UNIT/ML VIAL SQ SCH (06:10)
[2018-09-21 07:26] LABS: Basophils # 0.1 K/mcL (0.0-0.2); Basophils % 0.8 %; Eosinophils # 0.4 K/mcL (0.0-0.6); Eosinophils % 6.4 %; Hematocrit 40.3 % (37.5-50.1); Hemoglobin 11.8 g/dL (12.9-16.9); Immature Granulocytes % 0.5 % (0-4); Lymphocytes # 0.8 K/mcL (0.6-4.6); Lymphocytes % 13.5 %; Mean Corpuscular HGB Conc 29.3 g/dL (31.6-35.5); Mean Corpuscular Hemoglobin 25.5 pg (28.0-33.3); Mean Corpuscular Volume 87.2 fL (83.0-100.0); Mean Platelet Volume 10.4 fL (9.4-12.4); Monocytes # 0.6 K/mcL (0.0-1.3); Monocytes % 10.1 %; Neutrophils # 4.2 K/mcL (1.6-8.9); Platelet Count 276 K/mcL (140-400); Red Blood Count 4.62 M/mcL (4.19-5.50); Red Cell Distribution Width 16.1 % (11.5-14.5); Segmented Neutrophils % 68.7 %; White Blood Count 6.1 K/mcL (4.3-11.1)
[2018-09-21 07:44] LABS: Calcium 8.2 mg/dL (8.6-10.3); Potassium 4.7 mEq/L (3.5-5.1)
[2018-09-21] MEDS: Insulin LISPRO 300 UNITS/3 ML VIAL SQ SCH ×2 (09:01→12:16)
[2018-09-21] MEDS: BuPROPion XL (24 HR) 150 MG TABLET PO SCH (09:02)
[2018-09-21] MEDS: Furosemide 40 MG/4 ML VIAL IVP SCH (09:02)
[2018-09-21] MEDS: amLODIPine 5 MG TABLET PO SCH (09:02)
[2018-09-21] MEDS: Metoprolol XL (24 HR) Succ 50 MG TAB.ER.24H PO SCH (09:02)
[2018-09-21] MEDS: Miconazole 2% ointment 141 APPL/141 GM TUBE TP SCH (09:03)
[2018-09-21] MEDS: Insulin DETEMIR 100 UNIT/ML X5UNITS SQ SCH (09:03)
[2018-09-21] MEDS: Ertapenem 1,000 MG in 0.9 % Sodium Chloride Mini Bag 100 ML IVPB SCH (09:03)
[2018-09-21 12:15] VITALS: BP 127/72
== END 2018-09-21 15:35 | DRG 291 ==
LOC: 2ANU 17:31 → EMEROOARM 17:31 → SUATTDRO 22:05 → 2ANU 22:53 → SUATTDRO 09-18 13:40
PROVIDERS: ADMIT Pediatrics; ATTEND Family Medicine